=== PATIENT | male | born 1945 | race Caucasian/White ===

== ENCOUNTER → 2017-03-23 | Outpatient (CLI) | payer BC, OTHER ==
[~2017-03-23] MED LIST: NS 100 ML IV 100 ML IV ONE
[2017-03-23 08:35] LABS: CREATININE 1.3 mg/dL (0.70-1.30)
--- NOTE | 2017-03-23 09:52 | CT ---
HISTORY: 4 cm lung mass right mid lung zone per chest x-ray. Study: CT chest with contrast Comparison: Report only from chest x-ray dated March 17, 2017. Technique: Multiple axial images of the chest were obtained from the thoracic inlet to the upper abd omen after the administration of IV contrast. Dose reduction techniques including Automated Exposur e Control (AEC) and adjustment of mA and kV were utilized. Findings: The mediastinum does not demonstrate significant pathological lymphadenopathy. There is no paracard ial effusion observed. The thoracic aorta is normal in its contour without evidence for aneurysmal dilatation. The central pulmonary arterial system does not demonstrate central filling defects to s uggest pulmonary emboli. Biapical scarring and paraseptal emphysematous changes. Mild/moderate centrilobular emphysematous ch anges are seen throughout the lungs. There is a 6.3 x 4.5 cm spiculated right middle lobe mass that extends to the right hilum. No obvious satellite lesions. Calcified right lower lobe pulmonary nodul es consistent with old granulomatous disease. Multiple left pulmonary nodules, the largest seen salma g along the left major fissure (series 5, image 42) measuring 6 mm in greatest dimension. No pleural effusion, pneumothorax, or focal consolidation. Nonspecific posterior left lung pleural thickening. The left kidney is small. Otherwise, the visualized portions of the upper abdomen are grossly unrem arkable. Remote compression fracture of the T2 vertebral body. There is a soft tissue mass causing b simona destruction of the right portion of the vertebral body and posterior elements at T6. There is al so a suggestion of a soft tissue mass with bony destruction of the T11 vertebral body. Remaining oss eous structures appear intact. IMPRESSION: 1. 6.3 cm right middle lobe spiculated lung mass as above. No obvious associated satellite lesions or pathologic lymphadenopathy. However, multiple suspicious bone lesions as above concerning for met astatic disease. Recommend soft tissue sampling, PET-CT, and Pulmonary consultation. 2. Other chronic findings as above. Reported By:
== END ==
LOC: RAD 08:04
PROVIDERS: ATTEND Internal Medicine
DX: R63.4 Abnormal weight loss (principal); J44.9 Chronic obstructive pulmonary disease, unspecified; I50.22 Chronic systolic (congestive) heart failure; R91.8 Other nonspecific abnormal finding of lung field; R06.02 Shortness of breath
CPT/HCPCS: 36415; 71260; 82565; 84520; A4222

== ENCOUNTER 2017-04-27 13:49 | Inpatient (IN) | payer BC, OTHER ==
[2017-04-27] MEDS ORDERED: NS 1000 ML 1,000 ML IV ONE (14:04)
--- NOTE | 2017-04-27 14:06 | DR.GENAD ---
HPI - Nurses notes reviewed Nurses Notes Review: Yes PE - Vital Signs Vitals: Temperature 97.4 F Pulse Rate 105 Respiratory Rate 16 Blood Pressure 98/61 O2 Sat by Pulse Oximetry 94 ROR - Labs Reviewed Result Diagrams: 04/27/17 13:58 04/27/17 13:58 Laboratory: WBC 10.1 X10^3/uL (3.6-10.0) H 04/27/17 13:58 RBC 3.63 X10^6/uL (4.7-6.0) L 04/27/17 13:58 Hgb 11.2 g/dL (13.5-18.0) L 04/27/17 13:58 Hct 32.5 % (42.0-54.0) L 04/27/17 13:58 MCV 89.5 fL (80.0-100.0) 04/27/17 13:58 MCH 30.9 pg (27.0-34.0) 04/27/17 13:58 MCHC 34.5 g/dL (33.0-35.0) 04/27/17 13:58 RDW 13.8 % (11.6-16.5) 04/27/17 13:58 Plt Count 222 X10^3/uL (150.0-450.0) 04/27/17 13:58 MPV 10.1 fL (7.4-11.0) 04/27/17 13:58 Neut % 88.9 % (42.0-75.0) H 04/27/17 13:58 Lymph % 2.8 % (21.0-51.0) L 04/27/17 13:58 Snyder % 7.5 % (0.0-13.0) 04/27/17 13:58 Eos % 0.6 % (0.9-2.9) L 04/27/17 13:58 Baso % 0.2 % (0.2-1.0) 04/27/17 13:58 Neut # 9.0 x10^3/uL (2.2-4.8) H 04/27/17 13:58 Lymph # 0.3 X10^3/uL (1.3-2.9) L 04/27/17 13:58 Snyder # 0.8 x10^3/uL (0.3-0.8) 04/27/17 13:58 Eos # 0.1 x10^3/uL (0.0-0.2) 04/27/17 13:58 Baso # 0.0 X10^3/uL (0.0-0.1) 04/27/17 13:58 Absolute Nucleated RBC 0.0 /100WBC 04/27/17 13:58 Sodium 130 mmol/L (136-145) L 04/27/17 13:58 Corrected Sodium 130 mmol/L (136-145) L 04/27/17 13:58 Potassium 4.6 mmol/L (3.5-5.1) 04/27/17 13:58 Chloride 95 mmol/L (98-107) L 04/27/17 13:58 Carbon Dioxide 32.7 mmol/L (21-32) H 04/27/17 13:58 BUN 37 mg/dL (7-18) H 04/27/17 13:58 Creatinine 1.37 mg/dL (0.70-1.30) H 04/27/17 13:58 Est GFR (MDRD) Af Amer > 60 (>60) 04/27/17 13:58 Est GFR (MDRD) Non-Af 54 (>60) L 04/27/17 13:58 Glucose 111 mg/dL (65-99) H 04/27/17 13:58 Calcium 9.8 mg/dL (8.5-10.1) 04/27/17 13:58 Corrected Calcium 11.4 mg/dL (8.5-10.1) H 04/27/17 13:58 Total Bilirubin 0.30 mg/dL (0.2-1.0) 04/27/17 13:58 AST 32 Units/L (15-37) 04/27/17 13:58 ALT 27 Units/L (12-78) 04/27/17 13:58 Alkaline Phosphatase 142 Units/L (46-116) H 04/27/17 13:58 Creatine Kinase 30 Units/L (39-308) L 04/27/17 13:58 CK-MB (CK-2) < 1.0 ng/mL (0-4.0) 04/27/17 13:58 CK/CKMB % Calc 3.3 % (<4) 04/27/17 13:58 Troponin I < 0.02 ng/mL (0-1.5) 04/27/17 13:58 B-Natriuretic Peptide 102 pg/mL (0-79) H 04/27/17 13:58 Total Protein 8.0 g/dL (6.4-8.2) 04/27/17 13:58 Albumin 2.0 g/dL (3.4-5.0) L 04/27/17 13:58 Globulin 6.0 g/dL (2.5-4.5) H 04/27/17 13:58 Albumin/Globulin Ratio 0.3 Ratio (1.1-2.1) L 04/27/17 13:58 - Discharge Plan Condition: Stable - Follow ups/Referrals Follow ups/Referrals: Wayne Blackman [Primary Care Provider] - 3 days - Instructions
[2017-04-27] MEDS ORDERED: NS 1000 ML 1,000 ML ONE (14:08)
[2017-04-27 14:15] LABS: BASOPHILS % (AUTO) 0.2 % (0.2-1.0); EOSINOPHILS # (AUTO) 0.1 x10^3/uL (0.0-0.2); EOSINOPHILS % (AUTO) 0.6 % (0.9-2.9); HEMATOCRIT 32.5 % (42.0-54.0); HEMOGLOBIN 11.2 g/dL (13.5-18.0); LYMPHOCYTES # (AUTO) 0.3 X10^3/uL (1.3-2.9); LYMPHOCYTES % (AUTO) 2.8 % (21.0-51.0); MEAN CORPUSCULAR HEMOGLOBIN 30.9 pg (27.0-34.0); MEAN CORPUSCULAR HGB CONC 34.5 g/dL (33.0-35.0); MEAN CORPUSCULAR VOLUME 89.5 fL (80.0-100.0); MEAN PLATELET VOLUME 10.1 fL (7.4-11.0); MONOCYTES # (AUTO) 0.8 x10^3/uL (0.3-0.8); MONOCYTES % (AUTO) 7.5 % (0.0-13.0); NEUTROPHILS % (AUTO) 88.9 % (42.0-75.0); PLATELET COUNT 222 X10^3/uL (150.0-450.0); RED BLOOD COUNT 3.63 X10^6/uL (4.7-6.0); RED CELL DISTRIBUTION WIDTH 13.8 % (11.6-16.5); WHITE BLOOD COUNT 10.1 X10^3/uL (3.6-10.0)
[2017-04-27] MEDS: NS 1000 ML 1,000 ML IV SCH (14:15)
--- NOTE | 2017-04-27 14:21 | RAD ---
HISTORY: Chest pain. Lung mass. Study: Single view of the chest. Comparison: None. Findings: Right midlung opacity is unchanged from prior. Diffuse septal thickening is present. No focal consol idations, pleural effusions or pneumothorax. Osseous structures demonstrate no acute abnormality. IMPRESSION: 1. No significant change in appearance of right lung mass and diffuse fibrotic disease of the lungs . Reported By:
[2017-04-27 14:35] LABS: BLOOD UREA NITROGEN 37 mg/dL (7-18); CALCIUM 9.8 mg/dL (8.5-10.1); CARBON DIOXIDE 32.7 mmol/L (21-32); CHLORIDE 95 mmol/L (98-107); COR NA(FOR HYPERGLY) 130 mmol/L (136-145); CREATININE 1.37 mg/dL (0.70-1.30); GLUCOSE 111 mg/dL (65-99); SODIUM 130 mmol/L (136-145); TROPONIN I < 0.02 ng/mL (0-1.5); eGFR BLACK RACES > 60 (>60); eGFR NON BLACK RACES 54 (>60)
[2017-04-27 14:39] LABS: ALANINE AMINOTRANSFERASE 27 Units/L (12-78); ALKALINE PHOSPHATASE 142 Units/L (46-116); ASPARTATE AMINO TRANSFERASE 32 Units/L (15-37); CKMB % 3.3 % (<4); COR CA(FOR HYPOALB) 11.4 mg/dL (8.5-10.1); CREATINE KINASE 30 Units/L (39-308); CREATINE KINASE MB < 1.0 ng/mL (0-4.0)
[2017-04-27 14:47] LABS: B-TYPE NATRIURETIC PEPTIDE 102 pg/mL (0-79)
[2017-04-27] MEDS ORDERED: MVI INJ (ADULT) IV SCH (15:00)
[2017-04-27] MEDS: CLEOCIN 300 MG IV PREMIX 300 MG/50 ML BAG IV SCH ×2 (15:43→21:31)
[2017-04-27] MEDS ORDERED: SOLU-Medrol 125 MG VIAL IVP ONE (15:45)
[2017-04-27] MEDS: FORTAZ or TAZICEF INJ 1 GM in NS 50 ML IV + SPIKE MINIBAG* 50 ML IV SCH ×2 (16:38→21:29)
[2017-04-27] MEDS: ROBITUSSIN DM PO SCH ×2 (17:43→20:16)
[2017-04-27] MEDS ORDERED: DUONEB 0.5 MG/3 MG NEB SCH (18:00)
[2017-04-27] MEDS: PERCOCET TAB 5/325 MG PO PRN ×2 (20:15→22:05)
[2017-04-27 20:38] LABS: CKMB % 4.6 % (<4); CREATINE KINASE 22 Units/L (39-308); CREATINE KINASE MB < 1.0 ng/mL (0-4.0); TROPONIN I < 0.02 ng/mL (0-1.5)
[2017-04-27] MEDS: SOLU-Medrol 125 MG VIAL IVP SCH (21:30)
[2017-04-27] MEDS: DUONEB 0.5 MG/3 MG NEB SCH (21:40)
[2017-04-28 02:49] LABS: BASOPHILS % (AUTO) 0 % (0.2-1.0); HEMATOCRIT 32.2 % (42.0-54.0); LYMPHOCYTES # (AUTO) 0.1 X10^3/uL (1.3-2.9); LYMPHOCYTES % (AUTO) 1.6 % (21.0-51.0); MEAN CORPUSCULAR HEMOGLOBIN 30.8 pg (27.0-34.0); MEAN CORPUSCULAR HGB CONC 34.1 g/dL (33.0-35.0); MEAN CORPUSCULAR VOLUME 90.2 fL (80.0-100.0); MEAN PLATELET VOLUME 9.8 fL (7.4-11.0); MONOCYTES # (AUTO) 0.1 x10^3/uL (0.3-0.8); MONOCYTES % (AUTO) 1.1 % (0.0-13.0); NEUTROPHILS % (AUTO) 97.3 % (42.0-75.0); PLATELET COUNT 226 X10^3/uL (150.0-450.0); RED BLOOD COUNT 3.57 X10^6/uL (4.7-6.0); RED CELL DISTRIBUTION WIDTH 14.1 % (11.6-16.5); WHITE BLOOD COUNT 7.2 X10^3/uL (3.6-10.0)
[2017-04-28 03:05] LABS: ALANINE AMINOTRANSFERASE 30 Units/L (12-78); ALBUMIN 1.9 g/dL (3.4-5.0); ALKALINE PHOSPHATASE 134 Units/L (46-116); ASPARTATE AMINO TRANSFERASE 27 Units/L (15-37); BLOOD UREA NITROGEN 27 mg/dL (7-18); CALCIUM 9.6 mg/dL (8.5-10.1); CHLORIDE 97 mmol/L (98-107); COR CA(FOR HYPOALB) 11.3 mg/dL (8.5-10.1); COR NA(FOR HYPERGLY) 137 mmol/L (136-145); CREATININE 1.14 mg/dL (0.70-1.30); GLUCOSE 149 mg/dL (65-99); SODIUM 136 mmol/L (136-145); TOTAL PROTEIN 7.8 g/dL (6.4-8.2); eGFR BLACK RACES > 60 (>60); eGFR NON BLACK RACES > 60 (>60)
[2017-04-28 03:07] LABS: BAND NEUTROPHILS % 2 % (0-10); CKMB % 5.9 % (<4); CREATINE KINASE 17 Units/L (39-308); CREATINE KINASE MB < 1.0 ng/mL (0-4.0); TROPONIN I < 0.02 ng/mL (0-1.5)
[2017-04-28 03:08] LABS: PLATELET MORPHOLOGY COMMENT NORMAL (NORMAL)
[2017-04-28] MEDS: FORTAZ or TAZICEF INJ 1 GM in NS 50 ML IV + SPIKE MINIBAG* 50 ML IV SCH ×3 (05:27→21:52)
[2017-04-28] MEDS: SOLU-Medrol 125 MG VIAL IVP SCH ×3 (05:27→21:49)
[2017-04-28] MEDS: CLEOCIN 300 MG IV PREMIX 300 MG/50 ML BAG IV SCH (05:29)
[2017-04-28] MEDS: PERCOCET TAB 5/325 MG PO PRN ×2 (05:34→20:09)
[2017-04-28] MEDS: ALBUMIN HUMAN 25%- 100ML 100 ML IV SCH (09:01)
[2017-04-28] MEDS: ROBITUSSIN DM PO SCH ×4 (09:03→21:10)
[2017-04-28] MEDS: DUONEB 0.5 MG/3 MG NEB SCH ×4 (09:27→20:42)
[2017-04-28] MEDS ORDERED: CONSULT PHARMACY - ANTIBIOTIC XX SCH (10:00)
[2017-04-28] MEDS ORDERED: PHARMACY CONSULT - TPN XX SCH (10:00)
[2017-04-28] MEDS ORDERED: PATIENT'S HOME MEDICATION (Multivit-Min/Fa/Lycopen/Lutein [Centrum Silver Tablet] 1 TAB) PO SCH (10:00)
[2017-04-28] MEDS: COUMADIN TAB 5 MG PO SCH (10:49)
[2017-04-28] MEDS: XANAX PO SCH ×2 (10:50→21:10)
[2017-04-28] MEDS: PERIACTIN TAB 4 MG PO SCH ×3 (10:50→21:10)
[2017-04-28] MEDS: LASIX PO SCH ×2 (10:51→21:09)
[2017-04-28] MEDS: ALDACTONE TAB 25 MG PO SCH ×2 (10:51→21:09)
[2017-04-28] MEDS: LEVAQUIN PREMIX IV 750 MG 750 MG/150 ML BAG IV SCH (10:52)
[2017-04-28] MEDS: UBIDECARENONE 200 MG PO SCH ×2 (10:53→18:21)
[2017-04-28] MEDS: RAMIPRIL 1.25 MG PO SCH ×2 (10:54→18:22)
[2017-04-28] MEDS: VITS A C E PO SCH ×2 (10:55→18:21)
[2017-04-28] MEDS: MINERALS PO SCH ×2 (10:55→18:21)
[2017-04-28] MEDS: LUTEIN PO SCH ×2 (10:55→18:21)
--- NOTE | 2017-04-28 11:40 | DR.H&P ---
H&P - History & Physical for Day of: H&P Date: 04/27/17 - Chief Complaint Chief Complaint: SHORT OF BREATH, COUGH, BACK PAIN, WEAKNESS, DECREASED APPETITE. - Allergies Allergies/Adverse Reactions: Allergies Allergy/AdvReac Type Severity Reaction Status Date / Time No Known Drug Allergies Allergy Verified 04/27/17 14:15 - History of Present Illness History of Present Illness: IS A 71 YEAR OLD PATIENT OF OURS WHO PRESENTED TO THE ER WITH COMPLAINTS OF SHORTNESS OF BREATH, COUGHING UP YELLOW SPUTUM, BACK PAIN, WEAKNESS, AND DECREASED APPETITE. PATIENT STATED THAT HE WAS DIAGNOSED WITH CANCER ABOUT A MONTH AGO. HE REPORTS THAT HE HAS A MASS IN HIS LUNGS AND TUMORS IN HIS BACK AT T6-T11. HE HAS A HISTORY OF CONGESTIVE HEART FAILURE AND COPD. [facility] DEMOLISHED 2001 WITH . ON ARRIVAL TO ER, VITALS WERE 97.4-16-105-94%-98/61. CBC WNL EXCEPT WBC 10.1, RBC 3.63, HGB 11.2, HCT 32.5. CMP WNL EXCEPT SODIUM 130, GHLORIDE 95, CARBON DIOXIDE 32.7, BUN 37, CREATININE 1.37, GLUCOSE 111, CALCIUM 11.4, ALKALINE PHOSPHATASE 142, CRATINE KINASE 30, BNP 102, ALBUMIN 2.0. INR 1.66. CHEST XRAY REPORTED DIFFUSE FIBROTIC DISEASE OF THE LUNGS. HE WAS GIVEN SOLUMEDROL 125MG, CLEOCIN 300MG , AND DUONEBS IN THE ER. WE ADMITTED PATIENT FOR FURTHER TREATMENT AND EVALUATION. WE STARTED HIM ON NS @ KVO, CLEOCIN 300MG Q8H, FORTAZ 1GM Q8H, ROBITUSSION 10ML QID, AND MVI TO EACH BAG OF IV FLUIDS. WE PLANNED TO RECHECK LABS AND XRAY AND FOLLOW UP WITH PATIENT IN AM. - Past Medical History Past Medical History: CHF, COPD, Coronary Artery Disease Additional Medical History: LUNG CANCER - Past Surgical History Surgical History: Appendectomy, Ortho Surgery, TURP Additional Surgical History: PACEMAKER, DEFIBRILLATOR - Family History Family Medical History: [place], Coronary Artery Disease - Social History Does patient currently use any type of tobacco product: Yes Have you used tobacco products in the last 12 months: Yes Type of Tobacco Use: Cigarettes How many years tobacco product used: 50 Does any household member use tobacco: No Alcohol Use: Occasionally Drug Use: None - Medications Home Medications: Alprazolam [Xanax] 0.5 mg PO BID 04/27/17 [History Confirmed 04/27/17] Carvedilol [Coreg Tab 6.25 mg] 6.25 mg PO BID 04/27/17 [History Confirmed ] Cyproheptadine HCl 4 mg PO TID 04/27/17 [History Confirmed 04/27/17] Digoxin [Lanoxin] 125 mcg PO DAILY 04/27/17 [History Confirmed 04/27/17] Furosemide [Lasix] 40 mg PO BID 04/27/17 [History Confirmed 04/27/17] Multivit-Min/FA/Lycopen/Lutein [Centrum Silver Adult 50+] 1 tab PO DAILY [History Confirmed 04/27/17] Omeprazole 40 mg PO DAILY 04/27/17 [History Confirmed 04/27/17] Oxycodone HCl [Roxicodone Tab 15 mg] 0.5 tab PO Q6H PRN 04/27/17 [History Confirmed 04/27/17] Oxycodone HCl/Acetaminophen [Oxycodone/Acetaminophen 5-325 mg] 1 tab PO Q4H PRN 04/27/17 [History Confirmed 04/27/17] Potassium Chloride [Potassium Chloride ER] 20 meq PO BID 04/27/17 [History Confirmed 04/27/17] Pravastatin Sodium 10 mg PO HS 04/27/17 [History Confirmed 04/27/17] Ramipril [Altace 1.25 mg] 1.25 mg PO DAILY 04/27/17 [History Confirmed 04/27/17] Spironolactone [Aldactone Tab 25 mg] 25 mg PO BID 04/27/17 [History Confirmed ] Ubidecarenone [Coenzyme Q-10] 200 mg PO DAILY 04/27/17 [History Confirmed ] Vits A,C,E/Lutein/Minerals [Ocuvite tab (orig)] 1 tab PO DAILY 04/27/17 [ History Confirmed 04/27/17] Warfarin Sodium [Coumadin Tab 5 mg] 5 mg PO DAILY 04/27/17 [History Confirmed ] - Review of Systems Constitutional: Weakness. denies: No Symptoms Reported, See HPI, Fever, Chills , Sweats, Malaise, Other Eyes: No Symptoms Reported. denies: See HPI, Pain, Vision Change, Conjunctivae Inflammation, Eyelid Inflammation, Redness, Other ENT: No Symptoms Reported. denies: See HPI, Ear Pain, Ear Discharge, Nose Pain , Nose Discharge, Nose Congestion, Mouth Pain, Mouth Swelling, Throat Pain, Throat Swelling, Other Respiratory: See HPI, Cough, Shortness of Breath, Sputum, Wheezing Cardiovascular: No Symptoms Reported. denies: Chest Pain, See HPI, Palpitations , Orthopnea, Paroxysmal Noc. Dyspnea, Edema, Light Headedness, Other Gastrointestinal: No Symptoms Reported. denies: See HPI, Nausea, Vomiting, Abdominal Pain, Diarrhea, Constipation, Melena, Hematochezia, Other Genitourinary: No Symptoms Reported. denies: See HPI, Dysuria, Frequency, Incontinence, Hematuria, Retention, Other Musculoskeletal: See HPI, Back Pain. denies: No Symptoms Reported, Shoulder Pain, Arm Pain, Hand Pain, Leg Pain, Foot Pain, Neck Pain, Other Skin: No Symptoms Reported. denies: See HPI, Rash, Lesions, Jaundice, Bruising , Wound, Ecchymosis, Other Neurological: Weakness. denies: No Symptoms Reported, See HPI, Numbness, Incoordination, Change in Speech, Confusion, Seizures, Other - Physical Exam Vital Signs: Temperature 98.4 F Pulse Rate [Right Radial] 78 Pulse Rate 100 Respiratory Rate 18 Blood Pressure [Left Arm] 104/62 O2 Sat by Pulse Oximetry 93 Oriented: Normal. negative: Time, Person, Place, Not Oriented, Unable to test, Other Eyes: Normal. negative: Blurred Vision, Diplopia, Discharge, Pain, Redness, Photophobia, Other Ear: Normal. negative: Right, Left, Swelling, Ecchymosis, Hemotypanum, Abrasion , Laceration Nose: Normal. negative: Injected, Discharge, Blood, Other Throat: Normal. negative: Tonsillar Hypertrophy, Red, Exudate, Dry, Other Respiratory: Wheezes Throughout. negative: Clear Throughout, Diminished Throughout, Rhonchi Throughout, Rales Throughout, RUL Clear, RML Clear, RLL Clear, BABATUNDE Clear, LML Clear, LLL Clear, RUL Diminished, RML Diminished, RLL Diminished, BABATUNDE Diminished, LML Diminished, LLL Diminished, RUL Absent, RML Absent, RLL Absent, BABATUNDE Absent, LML Absent, LLL Absent, RUL Rhonchi, RML Rhonchi , RLL Rhonchi, BABATUNDE Rhonchi, LML Rhonchi, LLL Rhonchi, RUL Insp. Wheeze, RML Insp. Wheeze, RLL Insp. Wheeze, BABATUNDE Insp.Wheeze, LML Insp.Wheeze, LLL Insp.Wheeze, RUL Exp. Wheeze, RML Exp. Wheeze, RLL Exp. Wheeze, BABATUNDE Exp. Wheeze , LML Exp. Wheeze, LLL Exp. Wheeze, RUL Rales, RML Rales, RLL Rales, BABATUNDE Rales, LML Rales, LLL Rales, RUL Rub, RML Rub, RLL Rub, BABATUNDE Rub, LML Rub, LLL Rub, RUL Squeak, RML Squeak, RLL Squeak, BABATUNDE Squeak, LML Squeak, LLL Squeak Cardiovascular: Normal. negative: Tachycardia, Bradycardia, Irregular, S3, S4, Systolic, Diastolic, Murmur, Edema, Other : Normal. negative: Dysuria, Hematuria, Frequency, Discharge, Testicular Pain , Bleeding, , Other Auscultation: Bowel Sounds: Normal. negative: Bruit, Absent, Increased, Decreased, High Pitched, Other Palpation: Normal. negative: Spleen Enlarged, Liver Enlarged, Mass Pulsatile, Other Tenderness: Normal. negative: Diffuse, RUQ, RLQ, LUQ, LLQ, Epigastric, Periumbilical, Suprapubic, Mild, Moderate, Severe, Rebound, Guarding, Rigidity, Other Skin: Decreased Turgur. negative: Normal, Rash, Papular, Macular, Maculopapular , Vesicular, Pustular, Petechial, Red, Tender, Hot, Diaphoresis, Wound, Bruising , Ecchymosis, Other Musculoskeletal: Normal. negative: Right, Left, Shoulder, Clavicle, Arm, Elbow , Forearm, Wrist, Hand, Hip, Thigh, Knee, Leg, Ankle, Foot, Back:Thoracic, Back: Lumbar, Back:Midline, Back:Paraspinous, Pelvis, Swelling, Tender, Deformity, Pulse Deficit, Motor Deficit, Sensory Deficit, Instability, Crepitance Psychiatric: Normal. negative: Anxiety, Depression, Agitation, Other Mood Description: Calm. negative: Angry, Apathetic, Depressed, Fearful, Flat, Happy, Hostile, Sad, Suspicious, Withdrawn, Anxious, Appropriate, Labile Affect: Normal. negative: Angry, Anxious, Depressed, Flat, Hysterical, Quiet, Violent Speech Pattern: Clear. negative: Appropriate, Unclear, Inappropriate, Delayed, Slurred, Excessive, Aphasic, Artificially Ventilated - Assessment/Plan (1) Bronchitis Status: Acute Plan: FORTAZ 1 GM IV Q8H, CLEOCIN IV, DUONEBS QID PRN, CONTINUE TO MONITOR (2) Respiratory distress, acute Status: Acute Plan: SOLUMEDROL 80MG IV Q8H, DUONEBS QID PRN, CONTINUE TO MONITOR (3) Dehydration Status: Acute Plan: NORMAL SALINE, TPN, CONTINUE TO MONITOR (4) Back pain, thoracic Qualifiers: Chronicity: acute Back pain laterality: midline Qualified Code(s): M54.6 - Pain in thoracic spine Status: Acute Plan: CONTINUE PERCOCET Q4H PRN PAIN, CONTINUE TO MONITOR
[2017-04-28] MEDS ORDERED: PROCALAMINE 3 % 1,000 ML IV SCH (12:00)
--- NOTE | 2017-04-28 12:04 | RAD ---
HISTORY: Shortness of breath Study: Single view of the chest. Comparison: X-ray 04/27/2017, chest CT 03/23/2017 Findings: The cardiomediastinal silhouette is normal. No significant change in appearance of opacity involving the right middle lobe. Diffuse interstitial prominence and thickening. Osseous structures demonstra te no acute abnormality. IMPRESSION: 1. Redemonstration of what is likely a right middle lobe lung mass with diffuse interstitial thicke sunita likely representing fibrosis. Reported By:
[2017-04-28] MEDS: PROCALAMINE 3 % 1,000 ML IV SCH (15:13)
[2017-04-28 18:59] VITALS: BMI 13.8
--- NOTE | 2017-04-28 19:17 | PCM.PROG ---
Progress Note - Progress Note for Day of Date: 04/28/17 - Subjective Subjective: WAS ADMITTED TO US YESTERDAY FROM THE ER WITH RESPIRATORY DISTRESS, BRONCHITIS, AND DEHYDRATION. HE IS ALERT AND ORIENTED ON MORNING ROUNDS. FAMILY IS AT BEDSIDE HE IS NOTED WITH COMPLAINTS OF SHORTNESS OF BREATH , PRODUCTIVE COUGH, WEAKNESS, AND MODERATED BACK PAIN. LUNGS ARE NOTED WITH WHEEZING BILATERALLY ON AUSCULTATION. FAMILY STATES THAT THEY ARE AWAITING RESULTS FROM TISSUE BIOPSY THAT WAS DONE IN [place] RECENTLY. WE WILL CONTACT [facility] AND SEE IF WE CAN OBTAIN THESE RESULTS. VITALS THIS AM ARE 98.4-78-18-97%-104/62. CBC REPORTS WBC 7.2, RBC 3.57, HGB 11.0, HCT 32.2. CMP REPORTS SODIUM 136, POTASSIUM 5.7, BUN 27, CREATININE 1.14, ALKALINE PHOSPHATASE 134, TOTAL PROTEIN 7.8, ALBUMIN 1.9. INR 1.48. CREATININE KINASE 30 , 22, 17. BNP 102. CHEST XRAY REPORTS REDEMONSTRATION OF WHAT IS LIKELY A RIGHT MIDDLE LOBE LUNG MASS WITH DIFFUSE INTERSTITUAL THICKENING LIKELY REPRESENTING FIBROSIS. PATIENTS FAMILY EXPRESSES CONCERNS THAT PAIN MEDICATION IS NOT MANAGING PATIENTS PAIN EFFECTIVELY. WE WILL START A DURAGESIC PATCH 25MCG TO BE CHANGED EVERY THREE DAYS. WE WILL START ALBUMIN 1 BOTTLE DAILY, START TPN, AND LEVAQUIN IV DAILY, PHARMACY TO ADJUST RATE. WE WILL CHECK DIGOXIN AND INR LEVELS DAILY. WE WILL RECHECK CBC, CMP, AND CHEST XRAY AND FOLLOW UP WITH PATIENT IN AM. - Past Medical Family Social History Past Med/Fam/Surg Hx: No changes since H&P Allergies: Allergies No Known Drug Allergies Allergy (Verified 04/27/17 14:15) - Review of Systems ROS: No change since H&P - Vital Signs and I&O's Vital Signs: Temperature 97.2 F Pulse Rate [Right Radial] 96 Pulse Rate 100 Respiratory Rate 17 Blood Pressure [Right Arm] 114/59 Blood Pressure [Left Arm] 104/62 O2 Sat by Pulse Oximetry 96 Intake and Output: Intake & Output 04/26/17 04/27/17 04/28/17 04/29/17 11:59 11:59 11:59 11:59 Intake Total 907 540 Output Total 550 Balance 907 -10 - Physical Exam Oriented: Normal. negative: Time, Person, Place, Not Oriented, Unable to test, Other Eyes: Normal. negative: Blurred Vision, Diplopia, Discharge, Pain, Redness, Photophobia, Other Ear: Normal. negative: Right, Left, Swelling, Ecchymosis, Hemotypanum, Abrasion , Laceration Nose: Normal. negative: Injected, Discharge, Blood, Other Throat: Normal. negative: Tonsillar Hypertrophy, Red, Exudate, Dry, Other Respiratory: Right, Left, Wheezes Cardiovascular: Normal. negative: Tachycardia, Bradycardia, Irregular, S3, S4, Systolic, Diastolic, Murmur, Edema, Other : Normal. negative: Dysuria, Hematuria, Frequency, Discharge, Testicular Pain , Bleeding, , Other Auscultation: Bowel Sounds: Normal. negative: Bruit, Absent, Increased, Decreased, High Pitched, Other Palpation: Normal Tenderness: Normal. negative: Diffuse, RUQ, RLQ, LUQ, LLQ, Epigastric, Periumbilical, Suprapubic, Mild, Moderate, Severe, Rebound, Guarding, Rigidity, Other Skin: Decreased Turgur. negative: Normal, Rash, Papular, Macular, Maculopapular , Vesicular, Pustular, Petechial, Red, Tender, Hot, Diaphoresis, Wound, Bruising , Ecchymosis, Other Musculoskeletal: Normal. negative: Right, Left, Shoulder, Clavicle, Arm, Elbow , Forearm, Wrist, Hand, Hip, Thigh, Knee, Leg, Ankle, Foot, Back:Thoracic, Back: Lumbar, Back:Midline, Back:Paraspinous, Pelvis, Swelling, Tender, Deformity, Pulse Deficit, Motor Deficit, Sensory Deficit, Instability, Crepitance Psychiatric: Normal. negative: Anxiety, Depression, Agitation, Other Mood Description: Calm. negative: Angry, Apathetic, Depressed, Fearful, Flat, Happy, Hostile, Sad, Suspicious, Withdrawn, Anxious, Appropriate, Labile Affect: Normal. negative: Angry, Anxious, Depressed, Flat, Hysterical, Quiet, Violent Speech Pattern: Clear. negative: Appropriate, Unclear, Inappropriate, Delayed, Slurred, Excessive, Aphasic, Artificially Ventilated - Laboratory and Diagnostics Result Diagrams: 04/28/17 02:20 04/28/17 02:20 Labs: 04/27/17 15:08 Sputum - Expectorated Sputum Sputum Culture - Preliminary 04/27/17 15:08 Sputum - Expectorated Sputum - Final Laboratory WBC 7.2 X10^3/uL (3.6-10.0) 04/28/17 02:20 RBC 3.57 X10^6/uL (4.7-6.0) L 04/28/17 02:20 Hgb 11.0 g/dL (13.5-18.0) L 04/28/17 02:20 Hct 32.2 % (42.0-54.0) L 04/28/17 02:20 MCV 90.2 fL (80.0-100.0) 04/28/17 02:20 MCH 30.8 pg (27.0-34.0) 04/28/17 02:20 MCHC 34.1 g/dL (33.0-35.0) 04/28/17 02:20 RDW 14.1 % (11.6-16.5) 04/28/17 02:20 Plt Count 226 X10^3/uL (150.0-450.0) 04/28/17 02:20 Plt Count Comment Adequate (ADEQUATE) 04/28/17 02:20 MPV 9.8 fL (7.4-11.0) 04/28/17 02:20 Neut % 97.3 % (42.0-75.0) H 04/28/17 02:20 Lymph % 1.6 % (21.0-51.0) L 04/28/17 02:20 Nolan % 1.1 % (0.0-13.0) 04/28/17 02:20 Eos % 0.0 % (0.9-2.9) L 04/28/17 02:20 Baso % 0 % (0.2-1.0) L 04/28/17 02:20 Neut # 7.0 x10^3/uL (2.2-4.8) H 04/28/17 02:20 Lymph # 0.1 X10^3/uL (1.3-2.9) L 04/28/17 02:20 Nolan # 0.1 x10^3/uL (0.3-0.8) L 04/28/17 02:20 Eos # 0.0 x10^3/uL (0.0-0.2) 04/28/17 02:20 Baso # 0.0 X10^3/uL (0.0-0.1) 04/28/17 02:20 Absolute Nucleated RBC 0.1 /100WBC 04/28/17 02:20 Total Counted 100 04/28/17 02:20 Neutrophils % (Manual) 96 % (39-76) H 04/28/17 02:20 Band Neutrophils % 2 % (0-10) 04/28/17 02:20 Lymphocytes % (Manual) 2 % (13-43) L 04/28/17 02:20 Plt Morphology Comment Normal (NORMAL) 04/28/17 02:20 RBC Morphology Normal (NORMAL) 04/28/17 02:20 INR Target Range - 04/28/17 02:20 INR 1.48 (0.8-1.3) H 04/28/17 02:20 Sodium 136 mmol/L (136-145) 04/28/17 02:20 Corrected Sodium 137 mmol/L (136-145) 04/28/17 02:20 Potassium 5.7 mmol/L (3.5-5.1) H 04/28/17 02:20 Chloride 97 mmol/L (98-107) L 04/28/17 02:20 Carbon Dioxide 32.0 mmol/L (21-32) 04/28/17 02:20 BUN 27 mg/dL (7-18) H 04/28/17 02:20 Creatinine 1.14 mg/dL (0.70-1.30) 04/28/17 02:20 Est GFR (MDRD) Af Amer > 60 (>60) 04/28/17 02:20 Est GFR (MDRD) Non-Af > 60 (>60) 04/28/17 02:20 Glucose 149 mg/dL (65-99) H 04/28/17 02:20 Calcium 9.6 mg/dL (8.5-10.1) 04/28/17 02:20 Corrected Calcium 11.3 mg/dL (8.5-10.1) H 04/28/17 02:20 Total Bilirubin 0.30 mg/dL (0.2-1.0) 04/28/17 02:20 AST 27 Units/L (15-37) 04/28/17 02:20 ALT 30 Units/L (12-78) 04/28/17 02:20 Alkaline Phosphatase 134 Units/L (46-116) H 04/28/17 02:20 Creatine Kinase 17 Units/L (39-308) L 04/28/17 02:20 CK-MB (CK-2) < 1.0 ng/mL (0-4.0) 04/28/17 02:20 CK/CKMB % Calc 5.9 % (<4) 04/28/17 02:20 Troponin I < 0.02 ng/mL (0-1.5) 04/28/17 02:20 B-Natriuretic Peptide 102 pg/mL (0-79) H 04/27/17 13:58 Total Protein 7.8 g/dL (6.4-8.2) 04/28/17 02:20 Albumin 1.9 g/dL (3.4-5.0) L 04/28/17 02:20 Globulin 5.9 g/dL (2.5-4.5) H 04/28/17 02:20 Albumin/Globulin Ratio 0.3 Ratio (1.1-2.1) L 04/28/17 02:20 Digoxin 1.47 ng/mL (0.9-2) 04/28/17 02:20 - Plan (1) Bronchitis Status: Acute Plan: FORTAZ 1 GM IV Q8H, DISCONTINUE CLEOCIN IV, START LEVAQUIN IV DUONEBS QID PRN, CONTINUE TO MONITOR (2) Respiratory distress, acute Status: Acute Plan: SOLUMEDROL 80MG IV Q8H, DUONEBS QID PRN, CONTINUE TO MONITOR (3) Dehydration Status: Acute Plan: NORMAL SALINE, TPN, CONTINUE TO MONITOR (4) Back pain, thoracic Status: Acute Qualifiers: Chronicity: acute Back pain laterality: midline Qualified Code(s): M54.6 - Pain in thoracic spine Plan: CONTINUE PERCOCET Q4H PRN PAIN, CONTINUE TO MONITOR (5) Hypoalbuminemia Status: Acute Plan: ALBUMIN 1 BOTTLE DAILY, TPN, CONTINUE TO MONITOR
[2017-04-28] MEDS: PATIENT'S HOME MEDICATION (Pravastatin Sodium [Pravastatin Sodium] 10 MG) PO SCH (21:23)
[2017-04-28] MEDS: NS 1000 ML 1,000 ML IV SCH (21:56)
[2017-04-29 05:07] LABS: BASOPHILS % (AUTO) 0.1 % (0.2-1.0); HEMATOCRIT 28.6 % (42.0-54.0); HEMOGLOBIN 9.6 g/dL (13.5-18.0); LYMPHOCYTES # (AUTO) 0.1 X10^3/uL (1.3-2.9); MEAN CORPUSCULAR HEMOGLOBIN 30.3 pg (27.0-34.0); MEAN CORPUSCULAR HGB CONC 33.5 g/dL (33.0-35.0); MEAN CORPUSCULAR VOLUME 90.4 fL (80.0-100.0); MEAN PLATELET VOLUME 9.8 fL (7.4-11.0); MONOCYTES # (AUTO) 0.3 x10^3/uL (0.3-0.8); MONOCYTES % (AUTO) 2.1 % (0.0-13.0); NEUTROPHILS # (AUTO) 12.7 x10^3/uL (2.2-4.8); NEUTROPHILS % (AUTO) 96.8 % (42.0-75.0); PLATELET COUNT 239 X10^3/uL (150.0-450.0); RED BLOOD COUNT 3.16 X10^6/uL (4.7-6.0); RED CELL DISTRIBUTION WIDTH 13.5 % (11.6-16.5); WHITE BLOOD COUNT 13.2 X10^3/uL (3.6-10.0)
[2017-04-29 05:16] LABS: ALANINE AMINOTRANSFERASE 28 Units/L (12-78); ALBUMIN 2.1 g/dL (3.4-5.0); ALKALINE PHOSPHATASE 111 Units/L (46-116); ASPARTATE AMINO TRANSFERASE 23 Units/L (15-37); BLOOD UREA NITROGEN 28 mg/dL (7-18); CARBON DIOXIDE 30.3 mmol/L (21-32); CHLORIDE 97 mmol/L (98-107); COR CA(FOR HYPOALB) 10.5 mg/dL (8.5-10.1); COR NA(FOR HYPERGLY) 137 mmol/L (136-145); CREATININE 1.05 mg/dL (0.70-1.30); DIGOXIN 0.78 ng/mL (0.9-2); GLUCOSE 169 mg/dL (65-99); SODIUM 135 mmol/L (136-145); eGFR BLACK RACES > 60 (>60); eGFR NON BLACK RACES > 60 (>60)
[2017-04-29 05:41] LABS: PLATELET MORPHOLOGY COMMENT NORMAL (NORMAL)
[2017-04-29] MEDS: PERIACTIN TAB 4 MG PO SCH ×3 (06:06→21:43)
[2017-04-29] MEDS: FORTAZ or TAZICEF INJ 1 GM in NS 50 ML IV + SPIKE MINIBAG* 50 ML IV SCH ×3 (06:06→21:44)
[2017-04-29] MEDS: SOLU-Medrol 125 MG VIAL IVP SCH ×3 (06:06→21:49)
--- NOTE | 2017-04-29 06:49 | RAD ---
HISTORY: Shortness of breath Study: Chest one view Comparison: April 29, 2017, CT chest March 23, 2017 Findings: The patient is rotated to the left. There is a pacemaker present on the left obscuring a portion of the left mid lung. The heart is within normal limits in size. The chicho are normal. The aorta is calc ified. Abnormal parenchymal density is per in the right lung base likely representing the right lung mass/consolidation which is better visualized on the prior chest CT March 23, 2017. The appearance i s unchanged from the prior examination. The lungs are generally hyperinflated. Mild interstitial harrison g changes are present bilaterally. IMPRESSION: Persistent abnormal density in the area of the right middle lobe likely representing the patient's k nown right middle lobe mass/consolidation which was better demonstrated on the prior chest CT March 052016 Hyperinflation Interstitial lung changes Reported By:
[2017-04-29] MEDS: ALBUMIN HUMAN 25%- 100ML 100 ML IV SCH (09:20)
[2017-04-29] MEDS: LANOXIN PO SCH (09:23)
[2017-04-29] MEDS: ALDACTONE TAB 25 MG PO SCH ×2 (09:24→21:44)
[2017-04-29] MEDS: ROBITUSSIN DM PO SCH ×4 (09:24→21:44)
[2017-04-29] MEDS: XANAX PO SCH ×2 (09:24→21:43)
[2017-04-29] MEDS: TAB-A-VITE PO SCH (09:24)
[2017-04-29] MEDS: COUMADIN TAB 5 MG PO SCH (09:26)
[2017-04-29] MEDS: LASIX PO SCH ×2 (09:26→21:57)
[2017-04-29] MEDS: RAMIPRIL 1.25 MG PO SCH (09:30)
[2017-04-29] MEDS: UBIDECARENONE 200 MG PO SCH (09:31)
[2017-04-29] MEDS: LUTEIN PO SCH ×3 (09:33→21:46)
[2017-04-29] MEDS: VITS A C E PO SCH ×3 (09:33→21:46)
[2017-04-29] MEDS: MINERALS PO SCH ×3 (09:33→21:46)
[2017-04-29] MEDS: DUONEB 0.5 MG/3 MG NEB SCH ×4 (09:34→20:54)
--- NOTE | 2017-04-29 13:58 | PCM.PROG ---
Progress Note - Progress Note for Day of Date: 04/29/17 - Subjective Subjective: WAS ADMITTED TO US WITH RESPIRATORY DISTRESS, BRONCHITIS, AND DEHYDRATION. HE IS ALERT AND ORIENTED ON MORNING ROUNDS. FAMILY IS AT BEDSIDE. PATIENT CONTINUES WITH SHORTNESS OF BREATH, BUT REPORTS THAT HIS PAIN IS UNDER CONTROL AT THIS TIME. LUNGS ARE NOTED WITH WHEEZING BILATERALLY ON AUSCULTATION. VITALS THIS AM ARE 97.7-98.2-18-96%-111/70. CBC REPORTS WBC INCREASE FROM 7.2 TO 13.2, RBC 3.16, HGB 9.6, HCT 28.6. CMP REPORTS SODIUM 135, POTASSIUM 4.3, BUN 28, CREATININE 1.05, TOTAL PROTEIN 7.0, ALBUMIN 2.1. INR 1.49. CHEST XRAY REPORTS INTERSTITUAL LUNG CHANGES AND RIGHT MIDDLE LOBE MASS. PATIENT IS MALNOURISHED, EVIDENCED BY HIS ALBUMIN OF 2.1 AND DIETARY CONSULT. WE WILL CONTINUE ALBUMIN 1 BOTTLE DAILY, CONTINUE PROCALAMINE. WE WILL CHECK DIGOXIN AND INR LEVELS DAILY. WE WILL RECHECK CBC, CMP, AND CHEST XRAY AND FOLLOW UP WITH PATIENT IN AM. - Past Medical Family Social History Past Med/Fam/Surg Hx: No changes since H&P Allergies: Allergies No Known Drug Allergies Allergy (Verified 04/27/17 14:15) - Review of Systems ROS: No change since H&P - Vital Signs and I&O's Vital Signs: Temperature 97.7 F Pulse Rate [Right Radial] 92 Pulse Rate 92 Respiratory Rate 18 Blood Pressure [Right Arm] 111/70 Blood Pressure [Left Arm] 104/62 O2 Sat by Pulse Oximetry 100 Intake and Output: Intake & Output 04/27/17 04/28/17 04/29/17 04/30/17 11:59 11:59 11:59 11:59 Intake Total 907 1928 600 Output Total 1425 Balance 907 503 600 - Physical Exam Oriented: Normal. negative: Time, Person, Place, Not Oriented, Unable to test, Other Eyes: Normal. negative: Blurred Vision, Diplopia, Discharge, Pain, Redness, Photophobia, Other Ear: Normal. negative: Right, Left, Swelling, Ecchymosis, Hemotypanum, Abrasion , Laceration Nose: Normal. negative: Injected, Discharge, Blood, Other Throat: Normal. negative: Tonsillar Hypertrophy, Red, Exudate, Dry, Other Respiratory: Right, Left, Wheezes Cardiovascular: Normal. negative: Tachycardia, Bradycardia, Irregular, S3, S4, Systolic, Diastolic, Murmur, Edema, Other : Normal. negative: Dysuria, Hematuria, Frequency, Discharge, Testicular Pain , Bleeding, , Other Auscultation: Bowel Sounds: Normal. negative: Bruit, Absent, Increased, Decreased, High Pitched, Other Palpation: Normal Tenderness: Normal. negative: Diffuse, RUQ, RLQ, LUQ, LLQ, Epigastric, Periumbilical, Suprapubic, Mild, Moderate, Severe, Rebound, Guarding, Rigidity, Other Skin: Decreased Turgur. negative: Normal, Rash, Papular, Macular, Maculopapular , Vesicular, Pustular, Petechial, Red, Tender, Hot, Diaphoresis, Wound, Bruising , Ecchymosis, Other Musculoskeletal: Normal. negative: Right, Left, Shoulder, Clavicle, Arm, Elbow , Forearm, Wrist, Hand, Hip, Thigh, Knee, Leg, Ankle, Foot, Back:Thoracic, Back: Lumbar, Back:Midline, Back:Paraspinous, Pelvis, Swelling, Tender, Deformity, Pulse Deficit, Motor Deficit, Sensory Deficit, Instability, Crepitance Psychiatric: Normal. negative: Anxiety, Depression, Agitation, Other Mood Description: Calm. negative: Angry, Apathetic, Depressed, Fearful, Flat, Happy, Hostile, Sad, Suspicious, Withdrawn, Anxious, Appropriate, Labile Affect: Normal. negative: Angry, Anxious, Depressed, Flat, Hysterical, Quiet, Violent Speech Pattern: Clear, Appropriate - Laboratory and Diagnostics Result Diagrams: 04/29/17 03:35 04/29/17 03:35 Labs: 04/27/17 15:58 Blood Blood Culture - Preliminary 04/27/17 15:50 Blood Blood Culture - Preliminary 04/27/17 15:08 Sputum - Expectorated Sputum Sputum Culture - Final 04/27/17 15:08 Sputum - Expectorated Sputum - Final Laboratory WBC 13.2 X10^3/uL (3.6-10.0) H 04/29/17 03:35 RBC 3.16 X10^6/uL (4.7-6.0) L 04/29/17 03:35 Hgb 9.6 g/dL (13.5-18.0) L 04/29/17 03:35 Hct 28.6 % (42.0-54.0) L 04/29/17 03:35 MCV 90.4 fL (80.0-100.0) 04/29/17 03:35 MCH 30.3 pg (27.0-34.0) 04/29/17 03:35 MCHC 33.5 g/dL (33.0-35.0) 04/29/17 03:35 RDW 13.5 % (11.6-16.5) 04/29/17 03:35 Plt Count 239 X10^3/uL (150.0-450.0) 04/29/17 03:35 Plt Count Comment Adequate (ADEQUATE) 04/29/17 03:35 MPV 9.8 fL (7.4-11.0) 04/29/17 03:35 Neut % 96.8 % (42.0-75.0) H 04/29/17 03:35 Lymph % 1.0 % (21.0-51.0) L 04/29/17 03:35 Orange % 2.1 % (0.0-13.0) 04/29/17 03:35 Eos % 0.0 % (0.9-2.9) L 04/29/17 03:35 Baso % 0.1 % (0.2-1.0) L 04/29/17 03:35 Neut # 12.7 x10^3/uL (2.2-4.8) H 04/29/17 03:35 Lymph # 0.1 X10^3/uL (1.3-2.9) L 04/29/17 03:35 Orange # 0.3 x10^3/uL (0.3-0.8) 04/29/17 03:35 Eos # 0.0 x10^3/uL (0.0-0.2) 04/29/17 03:35 Baso # 0.0 X10^3/uL (0.0-0.1) 04/29/17 03:35 Absolute Nucleated RBC 0.0 /100WBC 04/29/17 03:35 Total Counted 100 04/29/17 03:35 Neutrophils % (Manual) 97 % (39-76) H 04/29/17 03:35 Band Neutrophils % 2 % (0-10) 04/28/17 02:20 Lymphocytes % (Manual) 3 % (13-43) L 04/29/17 03:35 Plt Morphology Comment Normal (NORMAL) 04/29/17 03:35 RBC Morphology Normal (NORMAL) 04/29/17 03:35 INR Target Range - 04/29/17 03:35 INR 1.49 (0.8-1.3) H 04/29/17 03:35 Sodium 135 mmol/L (136-145) L 04/29/17 03:35 Corrected Sodium 137 mmol/L (136-145) 04/29/17 03:35 Potassium 4.3 mmol/L (3.5-5.1) 04/29/17 03:35 Chloride 97 mmol/L (98-107) L 04/29/17 03:35 Carbon Dioxide 30.3 mmol/L (21-32) 04/29/17 03:35 BUN 28 mg/dL (7-18) H 04/29/17 03:35 Creatinine 1.05 mg/dL (0.70-1.30) 04/29/17 03:35 Est GFR (MDRD) Af Amer > 60 (>60) 04/29/17 03:35 Est GFR (MDRD) Non-Af > 60 (>60) 04/29/17 03:35 Glucose 169 mg/dL (65-99) H 04/29/17 03:35 Calcium 9.0 mg/dL (8.5-10.1) 04/29/17 03:35 Corrected Calcium 10.5 mg/dL (8.5-10.1) H 04/29/17 03:35 Total Bilirubin 0.10 mg/dL (0.2-1.0) L 04/29/17 03:35 AST 23 Units/L (15-37) 04/29/17 03:35 ALT 28 Units/L (12-78) 04/29/17 03:35 Alkaline Phosphatase 111 Units/L (46-116) 04/29/17 03:35 Creatine Kinase 17 Units/L (39-308) L 04/28/17 02:20 CK-MB (CK-2) < 1.0 ng/mL (0-4.0) 04/28/17 02:20 CK/CKMB % Calc 5.9 % (<4) 04/28/17 02:20 Troponin I < 0.02 ng/mL (0-1.5) 04/28/17 02:20 B-Natriuretic Peptide 102 pg/mL (0-79) H 04/27/17 13:58 Total Protein 7.0 g/dL (6.4-8.2) 04/29/17 03:35 Albumin 2.1 g/dL (3.4-5.0) L 04/29/17 03:35 Globulin 4.9 g/dL (2.5-4.5) H 04/29/17 03:35 Albumin/Globulin Ratio 0.4 Ratio (1.1-2.1) L 04/29/17 03:35 Digoxin 0.78 ng/mL (0.9-2) L 04/29/17 03:35 - Plan (1) Bronchitis Status: Acute Plan: FORTAZ 1 GM IV Q8H, DISCONTINUE CLEOCIN IV, START LEVAQUIN IV DUONEBS QID PRN, CONTINUE TO MONITOR (2) Respiratory distress, acute Status: Acute Plan: SOLUMEDROL 80MG IV Q8H, DUONEBS QID PRN, CONTINUE TO MONITOR (3) Dehydration Status: Acute Plan: NORMAL SALINE, TPN, CONTINUE TO MONITOR (4) Back pain, thoracic Status: Acute Qualifiers: Chronicity: acute Back pain laterality: midline Qualified Code(s): M54.6 - Pain in thoracic spine Plan: CONTINUE PERCOCET Q4H PRN PAIN, CONTINUE TO MONITOR (5) Hypoalbuminemia Status: Acute Plan: ALBUMIN 1 BOTTLE DAILY, TPN, CONTINUE TO MONITOR (6) Malnourished Status: Acute Plan: CONTINUE PROCALAMINE, CONTINUE ALBUMIN, CONTINUE TO MONITOR LABS AND PATIENT.
[2017-04-29] MEDS: DIFLUCAN 200 MG IV PREMIX* 200 MG/100 ML BAG IV SCH (17:26)
[2017-04-29] MEDS: PROCALAMINE 3 % 1,000 ML IV SCH (18:40)
[2017-04-29] MEDS: PATIENT'S HOME MEDICATION (Pravastatin Sodium [Pravastatin Sodium] 10 MG) PO SCH (21:44)
[2017-04-30] MEDS: FORTAZ or TAZICEF INJ 1 GM in NS 50 ML IV + SPIKE MINIBAG* 50 ML IV SCH ×3 (05:23→21:48)
[2017-04-30] MEDS: SOLU-Medrol 125 MG VIAL IVP SCH ×3 (05:23→21:50)
[2017-04-30] MEDS: PERIACTIN TAB 4 MG PO SCH ×3 (05:24→21:57)
--- NOTE | 2017-04-30 06:07 | RAD ---
HISTORY: Shortness of breath Study: Chest one view Comparison: April 29, 2017 Findings: The patient is rotated to the left. There is a pacemaker present on the left obscuring a portion of the lateral left lung. The heart is within normal limits in size. The aorta is calcified. The chicho a re normal. Abnormal density is present in the right lung base likely related to the right lung mass/ consolidation noted on the chest CT of March 23, 2017. Is not as well demonstrated on plain films as it was on the chest CT. It is unchanged in appearance from the prior examination. The lungs remain m ildly hyperinflated. Diffuse interstitial lung changes are stable. No pleural effusions are identifi ed. The bony thorax is unremarkable. IMPRESSION: No change persistent increased density in the right lung base likely representing the mass/consolida tion better demonstrated on the prior CT March 23, 2017 Hyperinflation Chronic interstitial lung changes Reported By:
[2017-04-30 06:10] LABS: BASOPHILS % (AUTO) 0.1 % (0.2-1.0); HEMATOCRIT 29.4 % (42.0-54.0); HEMOGLOBIN 9.9 g/dL (13.5-18.0); LYMPHOCYTES # (AUTO) 0.1 X10^3/uL (1.3-2.9); LYMPHOCYTES % (AUTO) 1.4 % (21.0-51.0); MEAN CORPUSCULAR HEMOGLOBIN 30.3 pg (27.0-34.0); MEAN CORPUSCULAR HGB CONC 33.8 g/dL (33.0-35.0); MEAN CORPUSCULAR VOLUME 89.5 fL (80.0-100.0); MEAN PLATELET VOLUME 9.4 fL (7.4-11.0); MONOCYTES # (AUTO) 0.3 x10^3/uL (0.3-0.8); MONOCYTES % (AUTO) 3.1 % (0.0-13.0); NEUTROPHILS # (AUTO) 10.6 x10^3/uL (2.2-4.8); NEUTROPHILS % (AUTO) 95.4 % (42.0-75.0); PLATELET COUNT 249 X10^3/uL (150.0-450.0); RED BLOOD COUNT 3.28 X10^6/uL (4.7-6.0); RED CELL DISTRIBUTION WIDTH 13.5 % (11.6-16.5); WHITE BLOOD COUNT 11.1 X10^3/uL (3.6-10.0)
[2017-04-30 06:36] LABS: ALANINE AMINOTRANSFERASE 40 Units/L (12-78); ALBUMIN 2.4 g/dL (3.4-5.0); ALKALINE PHOSPHATASE 109 Units/L (46-116); ASPARTATE AMINO TRANSFERASE 30 Units/L (15-37); BLOOD UREA NITROGEN 32 mg/dL (7-18); CALCIUM 9.2 mg/dL (8.5-10.1); CHLORIDE 100 mmol/L (98-107); COR CA(FOR HYPOALB) 10.5 mg/dL (8.5-10.1); COR NA(FOR HYPERGLY) 138 mmol/L (136-145); CREATININE 0.77 mg/dL (0.70-1.30); DIGOXIN 0.72 ng/mL (0.9-2); GLUCOSE 135 mg/dL (65-99); SODIUM 137 mmol/L (136-145); TOTAL PROTEIN 6.9 g/dL (6.4-8.2); eGFR BLACK RACES > 60 (>60); eGFR NON BLACK RACES > 60 (>60)
[2017-04-30 06:48] LABS: PLATELET MORPHOLOGY COMMENT NORMAL (NORMAL)
[2017-04-30] MEDS: DUONEB 0.5 MG/3 MG NEB SCH ×4 (08:40→21:24)
[2017-04-30] MEDS ORDERED: LEXAPRO ONE (09:41)
[2017-04-30] MEDS: LANOXIN PO SCH (09:43)
[2017-04-30] MEDS: ALDACTONE TAB 25 MG PO SCH ×2 (09:43→21:57)
[2017-04-30] MEDS: LEXAPRO PO SCH (09:43)
[2017-04-30] MEDS: ROBITUSSIN DM PO SCH ×4 (09:43→21:59)
[2017-04-30] MEDS: DIFLUCAN 200 MG IV PREMIX* 200 MG/100 ML BAG IV SCH (09:44)
[2017-04-30] MEDS: XANAX PO SCH (09:44)
[2017-04-30] MEDS: COUMADIN TAB 5 MG PO SCH (09:44)
[2017-04-30] MEDS: TAB-A-VITE PO SCH (09:44)
[2017-04-30] MEDS: VITS A C E PO SCH (09:45)
[2017-04-30] MEDS: LEVAQUIN PREMIX IV 750 MG 750 MG/150 ML BAG IV SCH (09:45)
[2017-04-30] MEDS: LUTEIN PO SCH (09:45)
[2017-04-30] MEDS: MINERALS PO SCH (09:45)
[2017-04-30] MEDS: RAMIPRIL 1.25 MG PO SCH (09:45)
[2017-04-30] MEDS: ALBUMIN HUMAN 25%- 100ML 100 ML IV SCH (09:46)
[2017-04-30] MEDS: NS 1000 ML 1,000 ML IV SCH ×2 (09:46→16:16)
[2017-04-30] MEDS: UBIDECARENONE 200 MG PO SCH (09:46)
[2017-04-30] MEDS: LASIX PO SCH ×3 (11:05→21:58)
--- NOTE | 2017-04-30 11:09 | PCM.PROG ---
Progress Note - Progress Note for Day of Date: 04/30/17 - Subjective Subjective: WAS ADMITTED TO US WITH RESPIRATORY DISTRESS, BRONCHITIS, AND DEHYDRATION. HE IS ALERT AND ORIENTED ON MORNING ROUNDS. FAMILY IS AT BEDSIDE. PATIENT CONTINUES WITH SHORTNESS OF BREATH, BUT DENIES PAIN AT THIS TIME. PATIENT REPORTS THAT HE DID NOT REQUIRE BREAKTHROUGH MEDICATIONS FOR PAIN YESTERDAY. LUNGS ARE NOTED WITH WHEEZING BILATERALLY ON AUSCULTATION. VITALS THIS AM ARE 97.7-104-20-95%-132/68. CBC REPORTS WBC INCREASE FROM 11.1, RBC 3.28 , HGB 9.9, HCT 29.4. CMP REPORTS SODIUM 137, POTASSIUM 4.2, BUN 32, CREATININE 0.77, TOTAL PROTEIN 6.9, ALBUMIN 2.4. INR 1.76. DIGOXIN LEVEL 0.72. CHEST XRAY REPORTS INTERSTITUAL LUNG CHANGES AND RIGHT MIDDLE LOBE MASS, SAME PREVIOUS DAY. HE CONTINUES ON ALBUMIN AND PROCALAMINE. WE WILL CHECK DIGOXIN AND INR LEVELS DAILY. WE WILL RECHECK CBC, CMP, AND CHEST XRAY AND FOLLOW UP WITH PATIENT IN AM. - Past Medical Family Social History Past Med/Fam/Surg Hx: No changes since H&P Allergies: Allergies No Known Drug Allergies Allergy (Verified 04/27/17 14:15) - Review of Systems ROS: No change since H&P - Vital Signs and I&O's Vital Signs: Temperature 97.7 F Pulse Rate [Left Brachial] 89 Pulse Rate [Right Radial] 104 Pulse Rate 63 Respiratory Rate 20 Blood Pressure [Right Arm] 132/68 Blood Pressure [Left Arm] 114/69 O2 Sat by Pulse Oximetry 95 Intake and Output: Intake & Output 04/27/17 04/28/17 04/29/17 04/30/17 11:59 11:59 11:59 11:59 Intake Total 907 1928 1466 Output Total 1425 550 Balance 907 503 916 - Physical Exam Oriented: Normal. negative: Time, Person, Place, Not Oriented, Unable to test, Other Eyes: Normal. negative: Blurred Vision, Diplopia, Discharge, Pain, Redness, Photophobia, Other Ear: Normal. negative: Right, Left, Swelling, Ecchymosis, Hemotypanum, Abrasion , Laceration Nose: Normal. negative: Injected, Discharge, Blood, Other Throat: Normal. negative: Tonsillar Hypertrophy, Red, Exudate, Dry, Other Respiratory: Right, Left, Wheezes Cardiovascular: Normal. negative: Tachycardia, Bradycardia, Irregular, S3, S4, Systolic, Diastolic, Murmur, Edema, Other : Normal. negative: Dysuria, Hematuria, Frequency, Discharge, Testicular Pain , Bleeding, , Other Auscultation: Bowel Sounds: Normal. negative: Bruit, Absent, Increased, Decreased, High Pitched, Other Palpation: Normal Tenderness: Normal. negative: Diffuse, RUQ, RLQ, LUQ, LLQ, Epigastric, Periumbilical, Suprapubic, Mild, Moderate, Severe, Rebound, Guarding, Rigidity, Other Skin: Decreased Turgur. negative: Normal, Rash, Papular, Macular, Maculopapular , Vesicular, Pustular, Petechial, Red, Tender, Hot, Diaphoresis, Wound, Bruising , Ecchymosis, Other Musculoskeletal: Normal. negative: Right, Left, Shoulder, Clavicle, Arm, Elbow , Forearm, Wrist, Hand, Hip, Thigh, Knee, Leg, Ankle, Foot, Back:Thoracic, Back: Lumbar, Back:Midline, Back:Paraspinous, Pelvis, Swelling, Tender, Deformity, Pulse Deficit, Motor Deficit, Sensory Deficit, Instability, Crepitance Psychiatric: Normal. negative: Anxiety, Depression, Agitation, Other Mood Description: Calm. negative: Angry, Apathetic, Depressed, Fearful, Flat, Happy, Hostile, Sad, Suspicious, Withdrawn, Anxious, Appropriate, Labile Affect: Normal. negative: Angry, Anxious, Depressed, Flat, Hysterical, Quiet, Violent Speech Pattern: Clear, Appropriate - Laboratory and Diagnostics Result Diagrams: 04/30/17 04:10 04/30/17 04:10 Labs: 04/27/17 15:58 Blood Blood Culture - Preliminary 04/27/17 15:50 Blood Blood Culture - Preliminary 04/27/17 15:08 Sputum - Expectorated Sputum Sputum Culture - Final 04/27/17 15:08 Sputum - Expectorated Sputum - Final Laboratory WBC 11.1 X10^3/uL (3.6-10.0) H 04/30/17 04:10 RBC 3.28 X10^6/uL (4.7-6.0) L 04/30/17 04:10 Hgb 9.9 g/dL (13.5-18.0) L 04/30/17 04:10 Hct 29.4 % (42.0-54.0) L 04/30/17 04:10 MCV 89.5 fL (80.0-100.0) 04/30/17 04:10 MCH 30.3 pg (27.0-34.0) 04/30/17 04:10 MCHC 33.8 g/dL (33.0-35.0) 04/30/17 04:10 RDW 13.5 % (11.6-16.5) 04/30/17 04:10 Plt Count 249 X10^3/uL (150.0-450.0) 04/30/17 04:10 Plt Count Comment Adequate (ADEQUATE) 04/30/17 04:10 MPV 9.4 fL (7.4-11.0) 04/30/17 04:10 Neut % 95.4 % (42.0-75.0) H 04/30/17 04:10 Lymph % 1.4 % (21.0-51.0) L 04/30/17 04:10 [place] % 3.1 % (0.0-13.0) 04/30/17 04:10 Eos % 0.0 % (0.9-2.9) L 04/30/17 04:10 Baso % 0.1 % (0.2-1.0) L 04/30/17 04:10 Neut # 10.6 x10^3/uL (2.2-4.8) H 04/30/17 04:10 Lymph # 0.1 X10^3/uL (1.3-2.9) L 04/30/17 04:10 [place]ami # 0.3 x10^3/uL (0.3-0.8) 04/30/17 04:10 Eos # 0.0 x10^3/uL (0.0-0.2) 04/30/17 04:10 Baso # 0.0 X10^3/uL (0.0-0.1) 04/30/17 04:10 Absolute Nucleated RBC 0.0 /100WBC 04/30/17 04:10 Total Counted 100 04/30/17 04:10 Neutrophils % (Manual) 96 % (39-76) H 04/30/17 04:10 Band Neutrophils % 2 % (0-10) 04/28/17 02:20 Lymphocytes % (Manual) 4 % (13-43) L 04/30/17 04:10 Plt Morphology Comment Normal (NORMAL) 04/30/17 04:10 RBC Morphology Normal (NORMAL) 04/30/17 04:10 INR Target Range - 04/30/17 04:10 INR 1.76 (0.8-1.3) H 04/30/17 04:10 Sodium 137 mmol/L (136-145) 04/30/17 04:10 Corrected Sodium 138 mmol/L (136-145) 04/30/17 04:10 Potassium 4.2 mmol/L (3.5-5.1) 04/30/17 04:10 Chloride 100 mmol/L (98-107) 04/30/17 04:10 Carbon Dioxide 33.0 mmol/L (21-32) H 04/30/17 04:10 BUN 32 mg/dL (7-18) H 04/30/17 04:10 Creatinine 0.77 mg/dL (0.70-1.30) 04/30/17 04:10 Est GFR (MDRD) Af Amer > 60 (>60) 04/30/17 04:10 Est GFR (MDRD) Non-Af > 60 (>60) 04/30/17 04:10 Glucose 135 mg/dL (65-99) H 04/30/17 04:10 Calcium 9.2 mg/dL (8.5-10.1) 04/30/17 04:10 Corrected Calcium 10.5 mg/dL (8.5-10.1) H 04/30/17 04:10 Total Bilirubin 0.20 mg/dL (0.2-1.0) 04/30/17 04:10 AST 30 Units/L (15-37) 04/30/17 04:10 ALT 40 Units/L (12-78) 04/30/17 04:10 Alkaline Phosphatase 109 Units/L (46-116) 04/30/17 04:10 Creatine Kinase 17 Units/L (39-308) L 04/28/17 02:20 CK-MB (CK-2) < 1.0 ng/mL (0-4.0) 04/28/17 02:20 CK/CKMB % Calc 5.9 % (<4) 04/28/17 02:20 Troponin I < 0.02 ng/mL (0-1.5) 04/28/17 02:20 B-Natriuretic Peptide 102 pg/mL (0-79) H 04/27/17 13:58 Total Protein 6.9 g/dL (6.4-8.2) 04/30/17 04:10 Albumin 2.4 g/dL (3.4-5.0) L 04/30/17 04:10 Globulin 4.5 g/dL (2.5-4.5) 04/30/17 04:10 Albumin/Globulin Ratio 0.5 Ratio (1.1-2.1) L 04/30/17 04:10 Digoxin 0.72 ng/mL (0.9-2) L 04/30/17 04:10 - Plan (1) Bronchitis Status: Acute Plan: FORTAZ 1 GM IV Q8H, DISCONTINUE CLEOCIN IV, START LEVAQUIN IV DUONEBS QID PRN, CONTINUE TO MONITOR (2) Respiratory distress, acute Status: Acute Plan: SOLUMEDROL 80MG IV Q8H, DUONEBS QID PRN, CONTINUE TO MONITOR (3) Dehydration Status: Acute Plan: NORMAL SALINE, TPN, CONTINUE TO MONITOR (4) Back pain, thoracic Status: Acute Qualifiers: Chronicity: acute Back pain laterality: midline Qualified Code(s): M54.6 - Pain in thoracic spine Plan: CONTINUE PERCOCET Q4H PRN PAIN, CONTINUE TO MONITOR (5) Hypoalbuminemia Status: Acute Plan: ALBUMIN 1 BOTTLE DAILY, TPN, CONTINUE TO MONITOR (6) Malnourished Status: Acute Plan: CONTINUE PROCALAMINE, CONTINUE ALBUMIN, CONTINUE TO MONITOR LABS AND PATIENT.
[2017-04-30] MEDS ORDERED: XANAX PO PRN (14:53)
[2017-04-30] MEDS: PROCALAMINE 3 % 1,000 ML IV SCH (17:11)
[2017-04-30] MEDS: CHECK PATCH XX SCH ×2 (17:51→21:58)
[2017-04-30] MEDS ORDERED: COLACE CAP 100 MG PO SCH (21:00)
[2017-04-30] MEDS ORDERED: MILK OF MAGNESIA PO SCH (21:00)
[2017-04-30] MEDS: PATIENT'S HOME MEDICATION (Pravastatin Sodium [Pravastatin Sodium] 10 MG) PO SCH (21:59)
[2017-05-01] MEDS: FORTAZ or TAZICEF INJ 1 GM in NS 50 ML IV + SPIKE MINIBAG* 50 ML IV SCH ×2 (05:37→15:12)
[2017-05-01] MEDS: PERIACTIN TAB 4 MG PO SCH ×2 (05:37→14:22)
[2017-05-01 06:16] LABS: BASOPHILS % (AUTO) 0.1 % (0.2-1.0); HEMATOCRIT 27.4 % (42.0-54.0); HEMOGLOBIN 9.5 g/dL (13.5-18.0); LYMPHOCYTES # (AUTO) 0.1 X10^3/uL (1.3-2.9); LYMPHOCYTES % (AUTO) 1.1 % (21.0-51.0); MEAN CORPUSCULAR HEMOGLOBIN 31.2 pg (27.0-34.0); MEAN CORPUSCULAR HGB CONC 34.7 g/dL (33.0-35.0); MEAN PLATELET VOLUME 9.4 fL (7.4-11.0); MONOCYTES # (AUTO) 0.3 x10^3/uL (0.3-0.8); MONOCYTES % (AUTO) 3.4 % (0.0-13.0); NEUTROPHILS # (AUTO) 9.4 x10^3/uL (2.2-4.8); NEUTROPHILS % (AUTO) 95.4 % (42.0-75.0); PLATELET COUNT 251 X10^3/uL (150.0-450.0); RED BLOOD COUNT 3.04 X10^6/uL (4.7-6.0); RED CELL DISTRIBUTION WIDTH 13.7 % (11.6-16.5); WHITE BLOOD COUNT 9.9 X10^3/uL (3.6-10.0)
[2017-05-01 06:34] LABS: ALANINE AMINOTRANSFERASE 47 Units/L (12-78); ALBUMIN 2.4 g/dL (3.4-5.0); ALKALINE PHOSPHATASE 106 Units/L (46-116); ASPARTATE AMINO TRANSFERASE 30 Units/L (15-37); BLOOD UREA NITROGEN 27 mg/dL (7-18); CALCIUM 9.2 mg/dL (8.5-10.1); CHLORIDE 102 mmol/L (98-107); COR CA(FOR HYPOALB) 10.5 mg/dL (8.5-10.1); COR NA(FOR HYPERGLY) 139 mmol/L (136-145); CREATININE 0.76 mg/dL (0.70-1.30); GLUCOSE 127 mg/dL (65-99); SODIUM 138 mmol/L (136-145); TOTAL PROTEIN 6.2 g/dL (6.4-8.2); eGFR BLACK RACES > 60 (>60); eGFR NON BLACK RACES > 60 (>60)
--- NOTE | 2017-05-01 06:45 | RAD ---
HISTORY: Shortness of breath Study: Chest one view Comparison: April 30, 2017, CT chest March 23, 2017 Findings: The patient is rotated to the left. There is a pacemaker present on the left obscuring a portion of the left mid lung. The heart is within normal limits in size. The aorta is calcified. The chicho are n ormal. Abnormal density is again demonstrated in the right lung base likely related to the mass/cons olidation demonstrated on the prior chest CT. It is not as well demonstrated on the plain film as on the chest CT. It is unchanged in appearance from the prior examination. Hyperinflation is present. Diffuse interstitial lung changes are present. The bony thorax is unremarkable. IMPRESSION: No significant change from the prior examination Reported By:
[2017-05-01 07:06] LABS: PLATELET MORPHOLOGY COMMENT NORMAL (NORMAL)
[2017-05-01] MEDS: DUONEB 0.5 MG/3 MG NEB SCH ×2 (08:42→12:03)
[2017-05-01] MEDS ORDERED: LEXAPRO ONE (08:46)
[2017-05-01] MEDS: LEXAPRO PO SCH (08:58)
[2017-05-01] MEDS: ALDACTONE TAB 25 MG PO SCH (08:58)
[2017-05-01] MEDS: COUMADIN TAB 5 MG PO SCH (08:58)
[2017-05-01] MEDS: TAB-A-VITE PO SCH (08:59)
[2017-05-01] MEDS: LANOXIN PO SCH (08:59)
[2017-05-01] MEDS: MINERALS PO SCH (09:00)
[2017-05-01] MEDS: DIFLUCAN 200 MG IV PREMIX* 200 MG/100 ML BAG IV SCH (09:00)
[2017-05-01] MEDS: RAMIPRIL 1.25 MG PO SCH (09:00)
[2017-05-01] MEDS: VITS A C E PO SCH (09:00)
[2017-05-01] MEDS: LUTEIN PO SCH (09:00)
[2017-05-01] MEDS: ALBUMIN HUMAN 25%- 100ML 100 ML IV SCH (09:01)
[2017-05-01] MEDS: CHECK PATCH XX SCH (09:01)
[2017-05-01] MEDS: UBIDECARENONE 200 MG PO SCH (09:01)
[2017-05-01] MEDS: ROBITUSSIN DM PO SCH ×2 (09:15→13:44)
[2017-05-01] MEDS: LASIX PO SCH (09:15)
[2017-05-01 12:06] VITALS: BP 128/71
[2017-05-01] MEDS: PROCALAMINE 3 % 1,000 ML IV SCH (15:13)
[2017-05-01] MEDS: NS 1000 ML 1,000 ML IV SCH (15:13)
--- NOTE | 2017-05-04 14:13 | DR.CARTERD ---
- Discharge Summary for: Discharge Summary for Date of:: 05/01/17 - Admission Date Date of Admission: 04/27/17 - Admission Diagnoses Admission Diagnosis: (1) Bronchitis (2) Respiratory distress, acute (3) Dehydration (4) Back pain, thoracic - Discharge Date Discharge Date: 05/01/17 - Discharge Diagnoses Discharge Diagnosis: (1) Bronchitis (2) Respiratory distress, acute (3) Dehydration (4) Back pain, thoracic (5) Hypoalbuminemia (6) Malnourished - Hospital Course Hospital Course: IS A 71 YEAR OLD PATIENT OF OURS WHO PRESENTED TO THE ER WITH COMPLAINTS OF SHORTNESS OF BREATH, COUGHING UP YELLOW SPUTUM, BACK PAIN, WEAKNESS, AND DECREASED APPETITE. PATIENT STATED THAT HE WAS DIAGNOSED WITH CANCER ABOUT A MONTH AGO. HE REPORTS THAT HE HAS A MASS IN HIS LUNGS AND TUMORS IN HIS BACK AT T6-T11. HE HAS A HISTORY OF CONGESTIVE HEART FAILURE AND COPD. HE RECENTLY UNDERWENT A BIOPSY AT [facility] WITH . ON ARRIVAL TO ER, VITALS WERE 97.4-16-105-94%-98/61. CBC WNL EXCEPT WBC 10.1, RBC 3.63, HGB 11.2, HCT 32.5. CMP WNL EXCEPT SODIUM 130, CHLORIDE 95, CARBON DIOXIDE 32.7, BUN 37, CREATININE 1.37, GLUCOSE 111, CALCIUM 11.4, ALKALINE PHOSPHATASE 142, CRATINE KINASE 30, BNP 102, ALBUMIN 2.0. INR 1.66. CHEST XRAY REPORTED DIFFUSE FIBROTIC DISEASE OF THE LUNGS. HE WAS GIVEN SOLUMEDROL 125MG, CLEOCIN 300MG, AND DUONEBS IN THE ER. WE ADMITTED PATIENT FOR FURTHER TREATMENT AND EVALUATION. WE STARTED HIM ON NS @ KVO, CLEOCIN 300MG Q8H, FORTAZ 1GM Q8H, ROBITUSSION 10ML QID, AND MVI TO EACH BAG OF IV FLUIDS. DAY 2 OF STAY: PATIENT NOTED WITH COMPLAINTS OF SHORTNESS OF BREATH, PRODUCTIVE COUGH, WEAKNESS, AND MODERATED BACK PAIN. LUNGS WERE NOTED WITH WHEEZING BILATERALLY ON AUSCULTATION. PATIENTS FAMILY EXPRESSED CONCERNS THAT PAIN MEDICATION IS NOT MANAGING PATIENTS PAIN EFFECTIVELY. WE STARTED A DURAGESIC PATCH 25MCG TO BE CHANGED EVERY THREE DAYS. WE STARTED ALBUMIN DUE TO LEVEL OF 1.9. WE ALSO STARTED PERIPHERAL TPN AND LEVAQUIN IV DAILY. WE REQUESTED BIOPSY RESULTS FROM [facility] [place]. OVER THE NEXT SEVERAL DAYS, PATIENTS SHORTNESS OF BREATH,COUGH, AND WHEEZING BEGAN TO IMPROVE. PAIN WAS CONTROLLED WELL WITH DURAGESIC PATIENT. PATIENT DENIES NEEDING PRN PAIN MEDICATIONS. WE CONTINUED PATIENT ON LEVAQUIN. FAMILY EXPRESSED CONCERNS THAT PATIENT MAY BE BECOMING DEPRESSED DUE TO CANCER DIAGNOSIS. WE STARTED HIM ON LEXAPRO 5MG PO DAILY AND CONTINUED TO MONITOR. ON DAY OF DISCHARGE, BIANKA IS ALERT AND ORIENTED, ON SIDE OF BED ON MORNING ROUNDS. HE REPORTS FEELING MUCH BETTER THIS MORNING AND VERBALIZES THE DESIRE TO BE DISCHARGED HOME. HE IS WITH NO COMPLAINTS. VITALS THIS AM ARE 97.5-97-20- 95%-129/79. CBC REPORTS WBC 9.9, RBC 3.04, HGB 9.5, HCT 27.4. CMP REPORTS SODIUM 138, BUN 34, CREATININE 27, GLUCOSE 127, CALCIUM 10.5, TOTAL BILIRUBIN 0.10, TOTAL PROTEIN 6.2, ALBUMIN 2.4. INR 2.13, DIGOXIN 0.76. CHEST XRAY STABLE. WE PLANNED FOR DISCHARGE. INSTRUCTIONS FOR MEDICATIONS AND FOLLOW UP WERE DISCUSSED WITH PATIENT AND FAMILY. BOTH VERBALIZED UNDERSTANDING. WE SET UP REFERRAL FOR IN [place] PER PATIENTS REQUEST. PATIENT WAS DISCHARGED HOME WITH FAMILY IN STABLE CONDITION WITH PRESCRIPTIONS FOR PERIACTIN 4MG PO BID, LEXAPRO 5MG PO DAILY, FENTANYL 25 MCG PATCH TD Q72H, DUONEB QID PRN, AND PERCOCET 5/325 PO Q4H PRN PAIN. HE IS INSTRUCTED TO CONTINUE CURRENT HOME MEDICATIONS WITH THE EXCEPTION OF OXYCODONE. HE HAS INSTRUCTIONS TO FOLLOW UP IN OUR OFFICE IN 2 WEEKS AND WITH JOVAN HARVEY NEXT WEEK. - Discharge Medications Discharge Medications: Alprazolam [XANAX 0.5 MG *] 0.5 mg PO BID 04/27/17 [History] Carvedilol [COREG TAB 6.25 MG *] 6.25 mg PO BID 04/27/17 [History] Cyproheptadine HCl 4 mg PO TID 04/27/17 [History] Digoxin [Lanoxin] 125 mcg PO DAILY 04/27/17 [History] Multivit-Min/FA/Lycopen/Lutein [Centrum Silver Tablet] 1 tab PO DAILY 04/27/17 [ History] Omeprazole 40 mg PO DAILY 04/27/17 [History] Potassium Chloride 20 meq PO BID 04/27/17 [History] Pravastatin Sodium 10 mg PO HS 04/27/17 [History] Ramipril [Altace 1.25 mg] 1.25 mg PO DAILY 04/27/17 [History] Spironolactone [ALDACTONE 25 MG *] 25 mg PO BID 04/27/17 [History] Ubidecarenone [Coenzyme Q-10] 200 mg PO DAILY 04/27/17 [History] Vits A,C,E/Lutein/Minerals [Ocuvite tab (orig)] 1 tab PO DAILY 04/27/17 [History ] Warfarin Sodium [COUMADIN 5 MG *] 5 mg PO DAILY 04/27/17 [History] Cyproheptadine HCl [PERIACTIN 4 MG TAB *] 4 mg PO BID #60 tab 05/01/17 [Rx] Escitalopram Oxalate [LEXAPRO 10 MG TAB *] 5 mg PO DAILY #30 tab 05/01/17 [Rx] Fentanyl 25 Mcg/Hr [DURAGESIC PATCH 25 mcg/hr *] 1 ea TD Q72H #10 patch [Rx] Furosemide [LASIX TAB 40 MG *] 40 mg PO BID PRN #0 05/01/17 [Rx] Ipratropium/Albuterol Nebule [DUONEB 0.5 MG/3 MG NEBULE *] 1 ea NEB QID PRN # 120 each 05/01/17 [Rx] Oxycodone/Acet 5 mg/325 mg [PERCOCET 5/325 MG *] 1 ea PO Q4H PRN #180 tab [Rx]
== END 2017-05-01 16:15 | disposition home or self-care (01) | DRG 202 ==
LOC: ER 14:03 → MED/SURG 15:03 → OBSVTOIN 15:03
PROVIDERS: ADMIT Internal Medicine; ATTEND Internal Medicine
DX: J20.8 Acute bronchitis due to other specified organisms (principal); R06.00 Dyspnea, unspecified; C34.90 Malignant neoplasm of unspecified part of unspecified bronchus or lung; E86.0 Dehydration; R06.02 Shortness of breath; M54.6 Pain in thoracic spine; R53.1 Weakness; J44.9 Chronic obstructive pulmonary disease, unspecified; I25.10 Atherosclerotic heart disease of native coronary artery without angina pectoris; R94.31 Abnormal electrocardiogram [ECG] [EKG]; R91.8 Other nonspecific abnormal finding of lung field; E88.09 Other disorders of plasma-protein metabolism, not elsewhere classified; E46 Unspecified protein-calorie malnutrition; R79.1 Abnormal coagulation profile; R73.09 Other abnormal glucose
CPT/HCPCS: 36415; 71010; 80053; 80162; 82550; 82553; 83880; 84484; 85025; 85610; 87040; 87070; 87205; 93005; 94640; 94760; 96365; 96374; 99284; A4222; B5200; P9047; S0077; J0713; J1450; J1956; J2930; J7620

== ENCOUNTER → 2017-06-16 | Outpatient (CLI) | payer BC, OTHER ==
[2017-06-16 13:15] LABS: BASOPHILS # (AUTO) 0.1 X10^3/uL (0.0-0.1); BASOPHILS % (AUTO) 0.6 % (0.2-1.0); EOSINOPHILS # (AUTO) 0.1 x10^3/uL (0.0-0.2); EOSINOPHILS % (AUTO) 1.5 % (0.9-2.9); HEMATOCRIT 31.5 % (42.0-54.0); HEMOGLOBIN 10.8 g/dL (13.5-18.0); LYMPHOCYTES % (AUTO) 11.1 % (21.0-51.0); MEAN CORPUSCULAR HEMOGLOBIN 29.3 pg (27.0-34.0); MEAN CORPUSCULAR HGB CONC 34.2 g/dL (33.0-35.0); MEAN CORPUSCULAR VOLUME 85.7 fL (80.0-100.0); MEAN PLATELET VOLUME 8.7 fL (7.4-11.0); MONOCYTES % (AUTO) 11.7 % (0.0-13.0); NEUTROPHILS # (AUTO) 6.7 x10^3/uL (2.2-4.8); NEUTROPHILS % (AUTO) 75.1 % (42.0-75.0); PLATELET COUNT 323 X10^3/uL (150.0-450.0); RED BLOOD COUNT 3.68 X10^6/uL (4.7-6.0); RED CELL DISTRIBUTION WIDTH 14.8 % (11.6-16.5); WHITE BLOOD COUNT 8.9 X10^3/uL (3.6-10.0)
[2017-06-16 13:29] LABS: ALANINE AMINOTRANSFERASE 15 Units/L (12-78); ALBUMIN 2.6 g/dL (3.4-5.0); ALKALINE PHOSPHATASE 114 Units/L (46-116); ASPARTATE AMINO TRANSFERASE 19 Units/L (15-37); BLOOD UREA NITROGEN 20 mg/dL (7-18); CALCIUM 10.1 mg/dL (8.5-10.1); CARBON DIOXIDE 33.3 mmol/L (21-32); CHLORIDE 97 mmol/L (98-107); COR CA(FOR HYPOALB) 11.2 mg/dL (8.5-10.1); CREATININE 1.06 mg/dL (0.70-1.30); SODIUM 135 mmol/L (136-145); TOTAL PROTEIN 8.2 g/dL (6.4-8.2); eGFR BLACK RACES > 60 (>60); eGFR NON BLACK RACES > 60 (>60)
== END ==
LOC: LAB 12:48
PROVIDERS: ATTEND Internal Medicine Medical Oncology
DX: C79.51 Secondary malignant neoplasm of bone (principal); C34.2 Malignant neoplasm of middle lobe, bronchus or lung
CPT/HCPCS: 36415; 80053; 85025

== ENCOUNTER → 2017-06-25 | Outpatient (CLI) | payer BC, OTHER ==
[2017-06-25 16:38] LABS: BASOPHILS # (AUTO) 0.1 X10^3/uL (0.0-0.1); EOSINOPHILS # (AUTO) 0.1 x10^3/uL (0.0-0.2); EOSINOPHILS % (AUTO) 2.1 % (0.9-2.9); HEMATOCRIT 31.3 % (42.0-54.0); HEMOGLOBIN 10.6 g/dL (13.5-18.0); LYMPHOCYTES # (AUTO) 0.9 X10^3/uL (1.3-2.9); LYMPHOCYTES % (AUTO) 15.8 % (21.0-51.0); MEAN CORPUSCULAR HGB CONC 33.8 g/dL (33.0-35.0); MEAN CORPUSCULAR VOLUME 85.8 fL (80.0-100.0); MEAN PLATELET VOLUME 8.5 fL (7.4-11.0); MONOCYTES # (AUTO) 0.6 x10^3/uL (0.3-0.8); MONOCYTES % (AUTO) 10.8 % (0.0-13.0); NEUTROPHILS % (AUTO) 70.3 % (42.0-75.0); PLATELET COUNT 357 X10^3/uL (150.0-450.0); RED BLOOD COUNT 3.65 X10^6/uL (4.7-6.0); RED CELL DISTRIBUTION WIDTH 14.8 % (11.6-16.5); WHITE BLOOD COUNT 5.7 X10^3/uL (3.6-10.0)
[2017-06-25 16:51] LABS: ALANINE AMINOTRANSFERASE 15 Units/L (12-78); ALBUMIN 2.4 g/dL (3.4-5.0); ALKALINE PHOSPHATASE 101 Units/L (46-116); ASPARTATE AMINO TRANSFERASE 18 Units/L (15-37); BLOOD UREA NITROGEN 15 mg/dL (7-18); CALCIUM 8.9 mg/dL (8.5-10.1); CARBON DIOXIDE 31.1 mmol/L (21-32); CHLORIDE 99 mmol/L (98-107); COR CA(FOR HYPOALB) 10.2 mg/dL (8.5-10.1); COR NA(FOR HYPERGLY) 135 mmol/L (136-145); CREATININE 0.92 mg/dL (0.70-1.30); SODIUM 135 mmol/L (136-145); TOTAL PROTEIN 7.5 g/dL (6.4-8.2); eGFR BLACK RACES > 60 (>60); eGFR NON BLACK RACES > 60 (>60)
== END | disposition home or self-care (01) | DRG 182 ==
LOC: LAB 16:09
PROVIDERS: ATTEND Internal Medicine Medical Oncology
DX: C34.2 Malignant neoplasm of middle lobe, bronchus or lung (principal); I73.89 Other specified peripheral vascular diseases
CPT/HCPCS: 36415; 80053; 85025; 85610

== ENCOUNTER → 2017-07-09 | Outpatient (CLI) | payer BC, OTHER | LOC: LAB 13:33 | PROVIDERS: ATTEND Internal Medicine Medical Oncology | DX: Z79.01 Long term (current) use of anticoagulants (principal); C79.51 Secondary malignant neoplasm of bone; C34.2 Malignant neoplasm of middle lobe, bronchus or lung | CPT/HCPCS: 36415; 85610 ==

== ENCOUNTER → 2017-07-23 | Outpatient (CLI) | payer BC, OTHER ==
[2017-07-23 15:30] LABS: BASOPHILS % (AUTO) 0.7 % (0.2-1.0); EOSINOPHILS # (AUTO) 0.1 x10^3/uL (0.0-0.2); EOSINOPHILS % (AUTO) 2.2 % (0.9-2.9); HEMATOCRIT 33.9 % (42.0-54.0); HEMOGLOBIN 11.1 g/dL (13.5-18.0); LYMPHOCYTES # (AUTO) 1.2 X10^3/uL (1.3-2.9); LYMPHOCYTES % (AUTO) 19.9 % (21.0-51.0); MEAN CORPUSCULAR HEMOGLOBIN 27.7 pg (27.0-34.0); MEAN CORPUSCULAR HGB CONC 32.8 g/dL (33.0-35.0); MEAN CORPUSCULAR VOLUME 84.5 fL (80.0-100.0); MEAN PLATELET VOLUME 8.8 fL (7.4-11.0); MONOCYTES # (AUTO) 0.7 x10^3/uL (0.3-0.8); MONOCYTES % (AUTO) 12.3 % (0.0-13.0); NEUTROPHILS # (AUTO) 3.9 x10^3/uL (2.2-4.8); NEUTROPHILS % (AUTO) 64.9 % (42.0-75.0); PLATELET COUNT 271 X10^3/uL (150.0-450.0); RED BLOOD COUNT 4.02 X10^6/uL (4.7-6.0); RED CELL DISTRIBUTION WIDTH 17.2 % (11.6-16.5); WHITE BLOOD COUNT 5.9 X10^3/uL (3.6-10.0)
[2017-07-23 15:40] LABS: ALANINE AMINOTRANSFERASE 13 Units/L (12-78); ALBUMIN 2.8 g/dL (3.4-5.0); ALKALINE PHOSPHATASE 115 Units/L (46-116); ASPARTATE AMINO TRANSFERASE 16 Units/L (15-37); BLOOD UREA NITROGEN 11 mg/dL (7-18); CALCIUM 9.5 mg/dL (8.5-10.1); CARBON DIOXIDE 29.3 mmol/L (21-32); CHLORIDE 103 mmol/L (98-107); COR CA(FOR HYPOALB) 10.5 mg/dL (8.5-10.1); CREATININE 0.89 mg/dL (0.70-1.30); SODIUM 138 mmol/L (136-145); TOTAL PROTEIN 7.9 g/dL (6.4-8.2); eGFR BLACK RACES > 60 (>60); eGFR NON BLACK RACES > 60 (>60)
[2017-07-23 16:24] LABS: IRON 20 ug/dL (50-175); TOTAL IRON BINDING CAPACITY 211 ug/dL (250-450)
== END ==
LOC: LAB 15:08
PROVIDERS: ATTEND Internal Medicine Medical Oncology
DX: C79.51 Secondary malignant neoplasm of bone (principal); C34.2 Malignant neoplasm of middle lobe, bronchus or lung; D64.9 Anemia, unspecified; Z79.01 Long term (current) use of anticoagulants
CPT/HCPCS: 36415; 80053; 82728; 83540; 83550; 85025; 85610

== ENCOUNTER 2017-08-31 12:47 | Emergency (ER) | payer BC, OTHER ==
[2017-08-31 13:02] VITALS: BP 114/71; BMI 15.2
--- NOTE | 2017-08-31 13:08 | DR.SOBA ---
HPI - Time Seen Time seen: 13:00 - Primary Care Physician Primary Care Physician: KATE - Complaints Chief Complaint Doctors Comments: Patient has been in his usual state of health until a few days ago and this AM started having increasing dyspnea. He had labs drawn this AM by his primary care physician. He is afebrile and a known cancer patient Chief Complaint:: FAMILY STATED THAT PATIENT HAS BEEN SOB TIMES 3 DAYS AND HAS WORSED. HE IS NOW COUGHING UP STUFF. PATIENT FAMILY STATED THAT HE TAKES TERCEVA DAILY AND THAT DR. ALDANA WANTS HIM TO BE SEEN IF HE IS EVER SOB. - Source History Provided: Patient - Mode of Arrival Mode of Arrival: Wheelchair - Timing Onset of Chief Complaint: 08/28/17 PMH - PMH Past Medical History: Yes Past Medical History: CHF, COPD, Coronary Artery Disease Past Surgical History: Yes Surgical History: Appendectomy, Ortho Surgery, TURP - Family History History of Family Medical Conditions: Yes Family Medical History: MD, Coronary Artery Disease - Social History Does any household member use tobacco: No Do you use any recreational Drugs:: No Lives With: Spouse Lives Where: Home - infectious screening In the last 2 months have you had wt loss of >10#?: NO Have you had fever, night sweats or hemotysis?: No Have you traveled outside the country in the last 6 months?: No Isolation: Standard ROS - Review of Systems Constitutional: negative: Diaphoresis Eyes: No Symptoms Reported ENTM: No Symptoms Reported Respiratoy: No Symptoms Reported Cardiovascular: No Symptoms Reported Gastrointestinal/Abdominal: No Symptoms Reported Genitourinary: No Symptoms Reported Neurological: No Symptoms Reported Musculoskeletal: No Symptoms Reported Integumentary: No Symptoms Reported Hematologic/Lymphatic: No Symptoms Reported Endocrine: No Symptoms Reported Psychiatric: No Symptoms Reported All Other Systems: Reviewed and Negative PE - Vital Signs Vitals: Temperature 98.1 F Pulse Rate 90 Respiratory Rate 20 Blood Pressure [Right Arm] 129/79 Blood Pressure [Left Arm] 128/71 Blood Pressure 114/71 O2 Sat by Pulse Oximetry 96 - General General Appearance: Alert, In No Apparent Distress - Head Head Exam: Normal Inspection, Atraumatic - Eyes Eye exam: Normal Appearance, PERRL, EOMI - ENT ENT Exam: Normal Exam - Neck Neck Exam: Normal Inspection, Full ROM - Chest Chest Inspection: Normal Inspection - Respiratory Respiratory Exam: Normal Lung Sounds Bilat Respiratory Exam: Bilateral Clear to Auscultation - Cardiovascular Cardiovascular Exam: Regular Rate, Normal Rhythm - Extremities Extremities Exam: Normal Inspection, Full ROM - Back Back Exam: Normal Inspection, Full ROM - Neurologic Neurological Exam: Alert, Oriented X3, CN II-XII Intact - Psychiatric Psychiatric Exam: Normal Affect, Normal Mood - Skin Skin Exam: Warm, Dry, Intact Course - Reevaluation 1st: Unchanged ROR - Labs Reviewed Result Diagrams: 08/31/17 10:45 Laboratory: 08/31/17 13:26 Sputum - Expectorated Sputum - Final D-Dimer 439 ng/mL (0-400) H* 08/31/17 10:45 Sodium Cancelled 08/31/17 10:45 Corrected Sodium Cancelled 08/31/17 10:45 Potassium Cancelled 08/31/17 10:45 Chloride Cancelled 08/31/17 10:45 Carbon Dioxide Cancelled 08/31/17 10:45 BUN Cancelled 08/31/17 10:45 Creatinine Cancelled 08/31/17 10:45 Est GFR (MDRD) Af Amer Cancelled 08/31/17 10:45 Est GFR (MDRD) Non-Af Cancelled 08/31/17 10:45 Glucose Cancelled 08/31/17 10:45 Calcium Cancelled 08/31/17 10:45 Corrected Calcium Cancelled 08/31/17 10:45 Total Bilirubin Cancelled 08/31/17 10:45 AST Cancelled 08/31/17 10:45 ALT Cancelled 08/31/17 10:45 Alkaline Phosphatase Cancelled 08/31/17 10:45 Total Protein Cancelled 08/31/17 10:45 Albumin Cancelled 08/31/17 10:45 Globulin Cancelled 08/31/17 10:45 Albumin/Globulin Ratio Cancelled 08/31/17 10:45 - XRAY XRAY Interpreted by: Radiologist (CTA chest: No pulmonary embolus. Decreasing size of the right middle lobe neoplastic mass, Progressive metastatic disease to the thoracic spine, COPD and emphysema and central peribronchial thickening, Right hilar adenopathy) - Diagnosis Discharge Problem: metastatic thoracic spine disease Dyspnea, unspecified Qualifiers: Dyspnea type: shortness of breath Qualified Code(s): R06.02 - Shortness of breath; R06.00 - Dyspnea, unspecified; R06.01 - Orthopnea COPD (chronic obstructive pulmonary disease) Qualifiers: COPD type: unspecified COPD Qualified Code(s): J44.9 - Chronic obstructive pulmonary disease, unspecified - Discharge Plan Condition: Stable - Follow ups/Referrals Follow ups/Referrals: Wayne Blackman [Primary Care Provider] - 3 days - Instructions
--- NOTE | 2017-08-31 13:48 | RAD ---
Examination portable AP chest History: Dyspnea, history of lung CA Comparison reference: 05/01/2017 Findings: Continued normal heart size with single pole AICD pacing device. Diffuse interstitial thick ening and fibrosis. Chronic pleural scarring left costophrenic angle. No evidence for mass formation, large pleural effusion or pneumothorax. Impression: No acute process identified. Postsurgical findings as noted. Chronic pleural thickening l eft base. Reported By:
--- NOTE | 2017-08-31 14:58 | CT ---
History: Shortness of breath and elevated D-dimer Study: CTA chest with 100 mL Omnipaque. Sagittal and coronal MIPS of the pulmonary arteries were disp layed. Comparison: March 23, 2017 Findings:There is a spiculated right middle lobe lung mass measuring 5.5 cm transverse width by 2.6 c m AP diameter, decreased in size. There is a new 1.8 cm AP diameter ill-defined density in the right lower lobe posterior and medial. There is 2.1 cm right hilar adenopathy. There are few small bullae a t the lung apices. There is progressive metastatic bone disease to the thoracic spine at T11 the T10 T9-T8 T6-T5-T4-T3 and T2 with compression fractures at T5 and T4 and T3. The lungs are moderately hyp erinflated. There is prominent central peribronchial thickening. There is focal left posterior basila r pleural calcification and there is mild dependent left pleural thickening or effusion. Visualized u pper abdomen is unremarkable. Impression: 1. No evidence for pulmonary embolus 2. Decreasing size of the right middle lobe neoplastic mass 3. Progressive metastatic disease to the thoracic spine 4. COPD and emphysema and central peribronchial thickening 5. Right hilar adenopathy Reported By:
[2017-08-31] MEDS ORDERED: SOLU-Medrol 125 MG VIAL IVP ONE (15:12)
[2017-08-31] MEDS ORDERED: SOLU-Medrol 125 MG VIAL ONE (15:21)
== END 2017-08-31 15:45 | disposition home or self-care (01) ==
LOC: ER 12:57
DX: C41.2 Malignant neoplasm of vertebral column (principal); R06.02 Shortness of breath; R06.00 Dyspnea, unspecified; R06.01 Orthopnea; J44.9 Chronic obstructive pulmonary disease, unspecified
CPT/HCPCS: 36415; 71010; 71275; 85378; 87070; 87205; 96365; 96374; 99282; 99283; A4222; J2930

== ENCOUNTER → 2017-08-31 | Outpatient (CLI) | payer BC, OTHER ==
[2017-08-31 11:08] LABS: BASOPHILS % (AUTO) 0.6 % (0.2-1.0); EOSINOPHILS # (AUTO) 0.3 x10^3/uL (0.0-0.2); EOSINOPHILS % (AUTO) 5.6 % (0.9-2.9); HEMATOCRIT 35.5 % (42.0-54.0); HEMOGLOBIN 11.8 g/dL (13.5-18.0); LYMPHOCYTES # (AUTO) 0.9 X10^3/uL (1.3-2.9); LYMPHOCYTES % (AUTO) 15.9 % (21.0-51.0); MEAN CORPUSCULAR HEMOGLOBIN 26.7 pg (27.0-34.0); MEAN CORPUSCULAR HGB CONC 33.2 g/dL (33.0-35.0); MEAN CORPUSCULAR VOLUME 80.3 fL (80.0-100.0); MEAN PLATELET VOLUME 9.2 fL (7.4-11.0); MONOCYTES # (AUTO) 0.5 x10^3/uL (0.3-0.8); MONOCYTES % (AUTO) 9.3 % (0.0-13.0); NEUTROPHILS # (AUTO) 3.9 x10^3/uL (2.2-4.8); NEUTROPHILS % (AUTO) 68.6 % (42.0-75.0); PLATELET COUNT 257 X10^3/uL (150.0-450.0); RED BLOOD COUNT 4.42 X10^6/uL (4.7-6.0); RED CELL DISTRIBUTION WIDTH 17.3 % (11.6-16.5); WHITE BLOOD COUNT 5.7 X10^3/uL (3.6-10.0)
[2017-08-31 11:16] LABS: ALANINE AMINOTRANSFERASE 15 Units/L (12-78); ALBUMIN 2.9 g/dL (3.4-5.0); ALKALINE PHOSPHATASE 98 Units/L (46-116); ASPARTATE AMINO TRANSFERASE 18 Units/L (15-37); BLOOD UREA NITROGEN 14 mg/dL (7-18); CALCIUM 7.8 mg/dL (8.5-10.1); CARBON DIOXIDE 31.7 mmol/L (21-32); CHLORIDE 102 mmol/L (98-107); COR CA(FOR HYPOALB) 8.7 mg/dL (8.5-10.1); CREATININE 0.82 mg/dL (0.70-1.30); SODIUM 144 mmol/L (136-145); TOTAL PROTEIN 7.3 g/dL (6.4-8.2); eGFR BLACK RACES > 60 (>60); eGFR NON BLACK RACES > 60 (>60)
== END ==
LOC: LAB 10:42
PROVIDERS: ATTEND Internal Medicine Medical Oncology
DX: C34.2 Malignant neoplasm of middle lobe, bronchus or lung (principal)
CPT/HCPCS: 36415; 80053; 85025

== ENCOUNTER 2017-09-07 14:34 | Observation (INO) | payer BC, OTHER ==
[2017-09-07 16:17] LABS: BASOPHILS % (AUTO) 0.3 % (0.2-1.0); EOSINOPHILS # (AUTO) 0.2 x10^3/uL (0.0-0.2); EOSINOPHILS % (AUTO) 3.7 % (0.9-2.9); HEMATOCRIT 37.7 % (42.0-54.0); HEMOGLOBIN 12.5 g/dL (13.5-18.0); LYMPHOCYTES # (AUTO) 0.7 X10^3/uL (1.3-2.9); LYMPHOCYTES % (AUTO) 10.9 % (21.0-51.0); MEAN CORPUSCULAR HEMOGLOBIN 26.5 pg (27.0-34.0); MEAN CORPUSCULAR HGB CONC 33.2 g/dL (33.0-35.0); MEAN CORPUSCULAR VOLUME 79.9 fL (80.0-100.0); MEAN PLATELET VOLUME 9.1 fL (7.4-11.0); MONOCYTES # (AUTO) 0.6 x10^3/uL (0.3-0.8); NEUTROPHILS # (AUTO) 4.9 x10^3/uL (2.2-4.8); NEUTROPHILS % (AUTO) 75.1 % (42.0-75.0); PLATELET COUNT 227 X10^3/uL (150.0-450.0); RED BLOOD COUNT 4.72 X10^6/uL (4.7-6.0); WHITE BLOOD COUNT 6.5 X10^3/uL (3.6-10.0)
[2017-09-07 16:28] LABS: ALANINE AMINOTRANSFERASE 23 Units/L (12-78); ALKALINE PHOSPHATASE 103 Units/L (46-116); ASPARTATE AMINO TRANSFERASE 20 Units/L (15-37); BLOOD UREA NITROGEN 26 mg/dL (7-18); CALCIUM 9.7 mg/dL (8.5-10.1); CARBON DIOXIDE 36.9 mmol/L (21-32); CHLORIDE 96 mmol/L (98-107); COR CA(FOR HYPOALB) 10.5 mg/dL (8.5-10.1); CREATININE 1.04 mg/dL (0.70-1.30); SODIUM 136 mmol/L (136-145); TOTAL PROTEIN 7.8 g/dL (6.4-8.2); eGFR BLACK RACES > 60 (>60); eGFR NON BLACK RACES > 60 (>60)
[2017-09-07] MEDS ORDERED: COLACE CAP 100 MG PO PRN ×2 (16:37→18:40)
[2017-09-07] MEDS ORDERED: MILK OF MAGNESIA PO PRN ×2 (16:37→18:40)
[2017-09-07] MEDS: NS 1000 ML 1,000 ML IV SCH (16:43)
[2017-09-07 17:43] VITALS: BMI 18.6
--- NOTE | 2017-09-07 18:08 | RAD ---
May be neoplastic; similar findings were documented on recent chest CT examination. Examination: Port able AP chest History: Lung cancer, CHF Comparison reference 08/31/2017 Findings: Continued normal heart size with stable position of pacemaker. Diffuse interstitial process may be related to fibrosis, although metastatic process cannot be excluded. There is a noncalcified nodule 1.5 cm in diameter at the level of the right diaphragm. Impression: Right basal nodule. A mass in the right lung was documented on recent chest CT examinatio n. There is no other significant change in appearance of harder lungs since 08/31/2017. Reported By:
[2017-09-07] MEDS ORDERED: XANAX PO PRN (18:40)
[2017-09-07] MEDS ORDERED: LASIX PO PRN (18:40)
[2017-09-07] MEDS ORDERED: DUONEB 0.5 MG/3 MG NEB PRN (18:40)
[2017-09-07] MEDS ORDERED: Atrovent NEB TX 0.02% IN SCH (19:00)
[2017-09-07] MEDS ORDERED: PERCOCET TAB 5/325 MG PO PRN (19:03)
[2017-09-07 20:11] LABS: APPEARANCE,URINE HAZY (CLEAR); BILIRUBIN,URINE NEGATIVE (NEGATIVE); BLOOD/HEMOGLOBIN,URINE NEGATIVE (NEGATIVE); COLOR,URINE DARK YELLOW (YELLOW); GLUCOSE, URINE NEGATIVE (NEGATIVE); KETONES,URINE NEGATIVE (NEGATIVE); NITRITES,URINE NEGATIVE (NEGATIVE); PROTEIN,URINE NEGATIVE (NEGATIVE)
[2017-09-07 20:12] LABS: AMORPHOUS SEDIMENT,UR 1+ /HPF (NEGATIVE); BACTERIA,URINE 1+ /HPF (NEGATIVE); LEUKOCYTE ESTERASE ,URINE NEGATIVE (NEGATIVE); RBC,URINE NONE SEEN /HPF (NEGATIVE); SQUAMOUS EPITHELIAL CELL,UR NEGATIVE /HPF (NEGATIVE); UROBILINOGEN,URINE NORMAL (NORMAL)
[2017-09-07] MEDS: Atrovent NEB TX 0.02% IN SCH (20:14)
[2017-09-07] MEDS: COREG TAB 6.25 MG PO SCH (22:07)
[2017-09-07] MEDS: PERIACTIN TAB 4 MG PO SCH (22:07)
[2017-09-07] MEDS: ZANTAC PO SCH (22:07)
[2017-09-07] MEDS: K-DUR TAB 20 MEQ PO SCH (22:08)
[2017-09-07] MEDS: PRAVACHOL PO SCH (22:08)
[2017-09-07] MEDS: COUMADIN TAB 5 MG PO SCH (22:21)
[2017-09-07] MEDS: ALDACTONE TAB 25 MG PO SCH (22:22)
[2017-09-08] MEDS: NS 1000 ML 1,000 ML IV SCH ×3 (00:38→21:00)
[2017-09-08] MEDS: Atrovent NEB TX 0.02% IN SCH ×3 (05:15→20:44)
[2017-09-08] MEDS: PERIACTIN TAB 4 MG PO SCH (05:42)
[2017-09-08 05:51] LABS: ALANINE AMINOTRANSFERASE 20 Units/L (12-78); ALBUMIN 2.5 g/dL (3.4-5.0); ALKALINE PHOSPHATASE 89 Units/L (46-116); ASPARTATE AMINO TRANSFERASE 20 Units/L (15-37); BLOOD UREA NITROGEN 19 mg/dL (7-18); CALCIUM 8.5 mg/dL (8.5-10.1); CARBON DIOXIDE 35.3 mmol/L (21-32); CHLORIDE 101 mmol/L (98-107); COR CA(FOR HYPOALB) 9.7 mg/dL (8.5-10.1); CREATININE 0.91 mg/dL (0.70-1.30); SODIUM 138 mmol/L (136-145); TOTAL PROTEIN 6.8 g/dL (6.4-8.2); eGFR BLACK RACES > 60 (>60); eGFR NON BLACK RACES > 60 (>60)
[2017-09-08 05:59] LABS: BASOPHILS # (AUTO) 0.1 X10^3/uL (0.0-0.1); BASOPHILS % (AUTO) 0.9 % (0.2-1.0); EOSINOPHILS # (AUTO) 0.3 x10^3/uL (0.0-0.2); EOSINOPHILS % (AUTO) 5.8 % (0.9-2.9); HEMATOCRIT 33.3 % (42.0-54.0); LYMPHOCYTES # (AUTO) 0.7 X10^3/uL (1.3-2.9); LYMPHOCYTES % (AUTO) 11.8 % (21.0-51.0); MEAN CORPUSCULAR HEMOGLOBIN 26.4 pg (27.0-34.0); MEAN PLATELET VOLUME 9.4 fL (7.4-11.0); MONOCYTES # (AUTO) 0.7 x10^3/uL (0.3-0.8); MONOCYTES % (AUTO) 11.5 % (0.0-13.0); NEUTROPHILS # (AUTO) 4.1 x10^3/uL (2.2-4.8); PLATELET COUNT 193 X10^3/uL (150.0-450.0); RED BLOOD COUNT 4.17 X10^6/uL (4.7-6.0); RED CELL DISTRIBUTION WIDTH 17.6 % (11.6-16.5); WHITE BLOOD COUNT 5.9 X10^3/uL (3.6-10.0)
[2017-09-08] MEDS ORDERED: LEXAPRO ONE (08:27)
[2017-09-08] MEDS ORDERED: ERLOTINIB HCL 150 MG PO SCH (09:00)
[2017-09-08] MEDS: ALDACTONE TAB 25 MG PO SCH ×2 (09:08→20:50)
[2017-09-08] MEDS: ZANTAC PO SCH ×2 (09:09→20:50)
[2017-09-08] MEDS: LANOXIN PO SCH (09:09)
[2017-09-08] MEDS: COLACE CAP 100 MG PO SCH (09:09)
[2017-09-08] MEDS: LEXAPRO PO SCH (09:09)
[2017-09-08] MEDS: COREG TAB 6.25 MG PO SCH ×3 (09:09→22:45)
[2017-09-08] MEDS: K-DUR TAB 20 MEQ PO SCH ×2 (09:11→20:50)
[2017-09-08] MEDS ORDERED: PHARMACY CONSULT - TPN XX SCH (10:00)
--- NOTE | 2017-09-08 11:25 | DR.H&P ---
H&P - History & Physical for Day of: H&P Date: 09/07/17 - Chief Complaint Chief Complaint: GENERALIZED WEAKNESS - Allergies Allergies/Adverse Reactions: Allergies Allergy/AdvReac Type Severity Reaction Status Date / Time No Known Drug Allergies Allergy Verified 04/27/17 14:15 - History of Present Illness History of Present Illness: is a 72 year old patient of ours who presented is a direct admission from our office with complaints of generalized weakness and shaking. Patient also reports a decrease in appetite and oral intake. Patient reports I feel like there is a band around my abdomen when I eat. Patient reports that he has been drinking Ensure, with no improvement in symptoms. He reports a weight loss of 8 pounds in the past month. Patient has a medical history of hard, of hearing, CHF, hyperlipidemia, hypertension, bronchitis, pneumonia, constipation, muscle weakness, lung cancer with mets to the bone, depression, stent in left leg due to PAD. On examination, patient appears to me malnourished. Heart is normal in rate and rhythm. Lungs are noted with rales bilaterally to auscultation. Abdomen is noted with distention. He reports diffuse tenderness. Decreased bowel sounds are noted in all quadrants. Patient reports that last bowel movement was 09/04/17. We admitted patient to the hospital for further treatment and evaluation of generalized weakness. On arrival to the hospital, vital signs were 98.3, 99, 24, 92%NC 2LPM , 114/72. We obtained labs and a chest xray. Abnormal lab values include the following: Hgb 12.5, Hct 37.7, MCV 79.9, MCH 26.5, RDW 18.0, Neut% 75.1, Lymph% 10.9, Eos% 3.7, Neut# 4.9, Lymph# 0.7, INR 2.81, Chloride 96, Carbon Dioxide 36.9, BUN 26, Glucose 109, Corrected Calcium 10.5, Albumin 3.0, Globulin 4.8, A/ G Ratio 0.6. Urinalysis reports: Color Dark yellow, Chas Hazy, Amorph Sed 1+, Bacteria 1+. Chest xray reports: Right basal nodule. A mass in the right lung was documented on recent chest CT examination. There is no other significant change in appearance of harder lungs since 08/31/17. Patient was started on normal saline at 125ml/hr. We will restart home medications. We plan to follow up with AM labs and continue to monitor patient. - Past Medical History Past Medical History: CHF, COPD, Coronary Artery Disease, Depression, Dyslipidemia, Hypertension Additional Medical History: LUNG CANCER - Past Surgical History Surgical History: Other Additional Surgical History: PACEMAKER, DEFIBRILLATOR, LEFT LEG STENT, - Family History Family Medical History: [place] - Social History Does patient currently use any type of tobacco product: Yes Have you used tobacco products in the last 12 months: Yes Type of Tobacco Use: Cigarettes How many years tobacco product used: 50 Does any household member use tobacco: No Alcohol Use: Occasionally Drug Use: Prescription Drugs - Medications Home Medications: Dronabinol [Marinol] 2.5 mg PO BID 09/08/17 [History Confirmed 09/08/17] Fentanyl 50 Mcg/Hr [DURAGESIC 50 mcg/HR PATCH] 1 each TD Q72H 09/08/17 [History Confirmed 09/08/17] - Review of Systems Constitutional: See HPI, Weakness Eyes: No Symptoms Reported. denies: See HPI, Pain, Vision Change, Conjunctivae Inflammation, Eyelid Inflammation, Redness, Other ENT: No Symptoms Reported. denies: See HPI, Ear Pain, Ear Discharge, Nose Pain , Nose Discharge, Nose Congestion, Mouth Pain, Mouth Swelling, Throat Pain, Throat Swelling, Other Respiratory: Shortness of Breath, SOB with Excertion, Other. denies: Hemoptysis , Pleuritic Pain, Sputum, Wheezing Cardiovascular: No Symptoms Reported. denies: Chest Pain, See HPI, Palpitations , Orthopnea, Paroxysmal Noc. Dyspnea, Edema, Light Headedness, Other Gastrointestinal: Abdominal Pain. denies: Melena, Hematochezia Genitourinary: No Symptoms Reported. denies: See HPI, Dysuria, Frequency, Incontinence, Hematuria, Retention, Other Musculoskeletal: Back Pain Skin: No Symptoms Reported. denies: See HPI, Rash, Lesions, Jaundice, Bruising , Wound, Ecchymosis, Other Neurological: Weakness - Physical Exam Vital Signs: Temperature 98.1 F Pulse Rate [Right Brachial] 76 Pulse Rate 80 Respiratory Rate 20 Blood Pressure [Right Arm] 117/67 Blood Pressure [Left Arm] 128/71 Blood Pressure 114/71 O2 Sat by Pulse Oximetry 94 Oriented: Normal Eyes: Normal. negative: Blurred Vision, Diplopia, Discharge, Pain, Redness, Photophobia, Other Ear: Normal. negative: Right, Left, Swelling, Ecchymosis, Hemotypanum, Abrasion , Laceration Nose: Normal. negative: Injected, Discharge, Blood, Other Throat: Normal. negative: Tonsillar Hypertrophy, Red, Exudate, Dry, Other Respiratory: Rales Throughout Cardiovascular: Normal. negative: Tachycardia, Bradycardia, Irregular, S3, S4, Systolic, Diastolic, Murmur, Edema, Other : Normal. negative: Dysuria, Hematuria, Frequency, Discharge, Testicular Pain , Bleeding, , Other Auscultation: Bowel Sounds: Normal. negative: Bruit, Absent, Increased, Decreased, High Pitched, Other Palpation: Normal. negative: Spleen Enlarged, Liver Enlarged, Mass Pulsatile, Other Tenderness: Diffuse. negative: Rebound, Guarding, Rigidity Skin: Normal Musculoskeletal: Back:Lumbar, Tender Psychiatric: Normal Mood Description: Calm Affect: Normal Speech Pattern: Clear - Assessment/Plan (1) Generalized weakness Status: Acute Plan: NORMAL SALINE AT 125ML/HR, TPN, ALBUMIN, CONTINUE TO MONITOR
[2017-09-08] MEDS: PROCALAMINE 3 % 1,000 ML IV SCH (12:18)
[2017-09-08] MEDS: ALBUMIN HUMAN 25%- 100ML 100 ML IV SCH (12:18)
[2017-09-08] MEDS: MINERALS PO SCH (12:27)
[2017-09-08] MEDS: LUTEIN PO SCH (12:27)
[2017-09-08] MEDS: VITS A C E PO SCH (12:27)
[2017-09-08] MEDS: UBIDECARENONE 200 MG PO SCH (12:28)
[2017-09-08] MEDS: RAMIPRIL 1.25 MG PO SCH (12:28)
[2017-09-08] MEDS: PATIENT'S HOME MEDICATION (Multivit-Min/Fa/Lycopen/Lutein [Centrum Silver Tablet] 1 TAB) PO SCH (12:28)
--- NOTE | 2017-09-08 13:29 | PCM.PROG ---
Progress Note - Progress Note for Day of Date: 09/08/17 - Subjective Subjective: WAS ADMITTED FOR GENERALIZED WEAKNESS. TODAY, HE IS ALERT AND ORIENTED, LYING IN BED ON MORNING ROUNDS. PATIENTS SPOUSE AND DAUGHTER ARE AT BEDSIDE. HE CONTINUES WITH COMPLAINTS OF WEAKNESS AND DECREASED APPETITE. ON EXAMINATION, HEART IS NORMAL IN RATE AND RHYTHM. SKIN TUGOR IS DECREASED. HE IS NOTED TO BE UTILIZING OXYGEN VIA NASAL CANNULA AT 2L/MIN AT THIS TIME. LUNGS ARE NOTED WITH RALES BILATERALLY TO AUSCULTATION. ABDOMEN CONTINUES WITH DISTENTION AND DIFFUSE TENDERNESS. NORMAL BOWEL SOUNDS NOTED IN ALL QUADRANTS. HIS VITAL SIGNS THIS MORNING ARE 97.7-78-18-94%-132/62. ABNORMAL LAB VALUES INCLUDE THE FOLLOWING: RBC 4.17. HGB 11.0, HCT 33.3, INR 2.89, CARBON DIOXIDE 35.3, BUN 19, ALBUMIN 2.5. PATIENT HAS A HISTORY OF LUNG CANCER AND IS SCHEDULED FOR A REPEAT PET SCAN NEXT WEEK, THEREFORE, WE WILL CANCEL THE CT THAT WAS ORDERED FOR TODAY. TODAY, WE PLAN TO START PERIPHERAL TPN, LIPIDS, AND ALBUMIN 25% IV DAILY. WE WILL RESUME HOME MEDICATIONS. OTHERWISE, WE WILL CONTINUE WITH CURRENT PLAN OF CARE. WE PLAN TO FOLLOW UP WITH AM LABS AND CONTINUE TO MONITOR PATIENT. - Past Medical Family Social History Past Med/Fam/Surg Hx: No changes since H&P Allergies: Allergies No Known Drug Allergies Allergy (Verified 04/27/17 14:15) - Review of Systems ROS: No change since H&P - Vital Signs and I&O's Vital Signs: Temperature 98.1 F Pulse Rate [Right Brachial] 76 Pulse Rate 80 Respiratory Rate 20 Blood Pressure [Right Arm] 117/67 Blood Pressure [Left Arm] 128/71 Blood Pressure 114/71 O2 Sat by Pulse Oximetry 94 Intake and Output: Intake & Output 09/06/17 09/07/17 09/08/17 09/09/17 11:59 11:59 11:59 11:59 Intake Total 1530 Output Total 100 Balance 1430 - Physical Exam Oriented: Normal Eyes: Normal. negative: Blurred Vision, Diplopia, Discharge, Pain, Redness, Photophobia, Other Ear: Normal. negative: Right, Left, Swelling, Ecchymosis, Hemotypanum, Abrasion , Laceration Nose: Normal. negative: Injected, Discharge, Blood, Other Throat: Normal. negative: Tonsillar Hypertrophy, Red, Exudate, Dry, Other Respiratory: Normal Cardiovascular: Normal. negative: Tachycardia, Bradycardia, Irregular, S3, S4, Systolic, Diastolic, Murmur, Edema, Other : Normal. negative: Dysuria, Hematuria, Frequency, Discharge, Testicular Pain , Bleeding, , Other Auscultation: Bowel Sounds: Normal. negative: Bruit, Absent, Increased, Decreased, High Pitched, Other Palpation: Normal Tenderness: Diffuse. negative: Rebound, Guarding, Rigidity Skin: Normal Musculoskeletal: Back:Lumbar, Tender Psychiatric: Normal Mood Description: Calm Affect: Normal Speech Pattern: Clear - Laboratory and Diagnostics Result Diagrams: 09/08/17 03:50 09/08/17 03:50 Labs: Laboratory WBC 5.9 X10^3/uL (3.6-10.0) 09/08/17 03:50 RBC 4.17 X10^6/uL (4.7-6.0) L 09/08/17 03:50 Hgb 11.0 g/dL (13.5-18.0) L 09/08/17 03:50 Hct 33.3 % (42.0-54.0) L 09/08/17 03:50 MCV 80.0 fL (80.0-100.0) 09/08/17 03:50 MCH 26.4 pg (27.0-34.0) L 09/08/17 03:50 MCHC 33.0 g/dL (33.0-35.0) 09/08/17 03:50 RDW 17.6 % (11.6-16.5) H 09/08/17 03:50 Plt Count 193 X10^3/uL (150.0-450.0) 09/08/17 03:50 MPV 9.4 fL (7.4-11.0) 09/08/17 03:50 Neut % 70.0 % (42.0-75.0) 09/08/17 03:50 Lymph % 11.8 % (21.0-51.0) L 09/08/17 03:50 [place] % 11.5 % (0.0-13.0) 09/08/17 03:50 Eos % 5.8 % (0.9-2.9) H 09/08/17 03:50 Baso % 0.9 % (0.2-1.0) 09/08/17 03:50 Neut # 4.1 x10^3/uL (2.2-4.8) 09/08/17 03:50 Lymph # 0.7 X10^3/uL (1.3-2.9) L 09/08/17 03:50 [place] # 0.7 x10^3/uL (0.3-0.8) 09/08/17 03:50 Eos # 0.3 x10^3/uL (0.0-0.2) H 09/08/17 03:50 Baso # 0.1 X10^3/uL (0.0-0.1) 09/08/17 03:50 Absolute Nucleated RBC 0.0 /100WBC 09/08/17 03:50 INR Target Range - 09/08/17 03:50 INR 2.89 (0.8-1.3) H 09/08/17 03:50 Sodium 138 mmol/L (136-145) 09/08/17 03:50 Corrected Sodium TNP 09/08/17 03:50 Potassium 4.0 mmol/L (3.5-5.1) 09/08/17 03:50 Chloride 101 mmol/L (98-107) 09/08/17 03:50 Carbon Dioxide 35.3 mmol/L (21-32) H 09/08/17 03:50 BUN 19 mg/dL (7-18) H 09/08/17 03:50 Creatinine 0.91 mg/dL (0.70-1.30) 09/08/17 03:50 Est GFR (MDRD) Af Amer > 60 (>60) 09/08/17 03:50 Est GFR (MDRD) Non-Af > 60 (>60) 09/08/17 03:50 Glucose 82 mg/dL (65-99) 09/08/17 03:50 Calcium 8.5 mg/dL (8.5-10.1) 09/08/17 03:50 Corrected Calcium 9.7 mg/dL (8.5-10.1) 09/08/17 03:50 Total Bilirubin 0.40 mg/dL (0.2-1.0) 09/08/17 03:50 AST 20 Units/L (15-37) 09/08/17 03:50 ALT 20 Units/L (12-78) 09/08/17 03:50 Alkaline Phosphatase 89 Units/L (46-116) 09/08/17 03:50 Total Protein 6.8 g/dL (6.4-8.2) 09/08/17 03:50 Albumin 2.5 g/dL (3.4-5.0) L 09/08/17 03:50 Globulin 4.3 g/dL (2.5-4.5) 09/08/17 03:50 Albumin/Globulin Ratio 0.6 Ratio (1.1-2.1) L 09/08/17 03:50 Specimen Type Random urine 09/07/17 19:01 Urine Color Dark yellow (YELLOW) 09/07/17 19:01 Urine Appearance Hazy (CLEAR) 09/07/17 19:01 Urine pH 7.0 (5.0 - 8.0) 09/07/17 19:01 Ur Specific [place] 1.010 (1.000-1.030) 09/07/17 19:01 Urine Protein Negative (NEGATIVE) 09/07/17 19:01 Urine Glucose (UA) Negative (NEGATIVE) 09/07/17 19:01 Urine Ketones Negative (NEGATIVE) 09/07/17 19:01 Urine Occult Blood Negative (NEGATIVE) 09/07/17 19:01 Urine Nitrite Negative (NEGATIVE) 09/07/17 19:01 Urine Bilirubin Negative (NEGATIVE) 09/07/17 19:01 Urine Urobilinogen Normal (NORMAL) 09/07/17 19:01 Ur Leukocyte Esterase Negative (NEGATIVE) 09/07/17 19:01 Urine RBC None seen /HPF (NEGATIVE) 09/07/17 19:01 Urine WBC None seen /HPF (NEGATIVE) 09/07/17 19:01 Ur Squamous Epith Cells Negative /HPF (NEGATIVE) 09/07/17 19:01 Amorphous Sediment 1+ /HPF (NEGATIVE) 09/07/17 19:01 Urine Bacteria 1+ /HPF (NEGATIVE) 09/07/17 19:01 Ur Culture Indicated? No/not indicated 09/07/17 19:01 - Plan (1) Generalized weakness Status: Acute Plan: NORMAL SALINE AT 125ML/HR, TPN, ALBUMIN, CONTINUE TO MONITOR (2) Hypoalbuminemia Status: Acute Plan: ALBUMIN 25% IV DAILY, PERIPHERAL TPN, LIPIDS, CONTINUE TO MONITOR
[2017-09-08] MEDS: DRONABINOL 2.5 MG PO SCH ×2 (17:50→20:59)
[2017-09-08] MEDS: COUMADIN TAB 5 MG PO SCH (20:53)
[2017-09-08] MEDS: PRAVACHOL PO SCH (20:55)
[2017-09-08] MEDS: LIPOSYN III 20% 100ML 100 ML IV SCH (20:57)
[2017-09-09] MEDS: Atrovent NEB TX 0.02% IN SCH ×2 (04:41→05:00)
[2017-09-09 05:45] LABS: BASOPHILS % (AUTO) 0.7 % (0.2-1.0); EOSINOPHILS # (AUTO) 0.3 x10^3/uL (0.0-0.2); EOSINOPHILS % (AUTO) 6.1 % (0.9-2.9); LYMPHOCYTES # (AUTO) 0.9 X10^3/uL (1.3-2.9); LYMPHOCYTES % (AUTO) 15.6 % (21.0-51.0); MEAN CORPUSCULAR HGB CONC 33.3 g/dL (33.0-35.0); MEAN PLATELET VOLUME 9.8 fL (7.4-11.0); MONOCYTES # (AUTO) 0.6 x10^3/uL (0.3-0.8); MONOCYTES % (AUTO) 11.6 % (0.0-13.0); NEUTROPHILS # (AUTO) 3.6 x10^3/uL (2.2-4.8); PLATELET COUNT 160 X10^3/uL (150.0-450.0); RED BLOOD COUNT 3.33 X10^6/uL (4.7-6.0); RED CELL DISTRIBUTION WIDTH 17.3 % (11.6-16.5); WHITE BLOOD COUNT 5.5 X10^3/uL (3.6-10.0)
[2017-09-09 05:46] LABS: ALANINE AMINOTRANSFERASE 21 Units/L (12-78); ALBUMIN 2.5 g/dL (3.4-5.0); ALKALINE PHOSPHATASE 70 Units/L (46-116); ASPARTATE AMINO TRANSFERASE 18 Units/L (15-37); BLOOD UREA NITROGEN 18 mg/dL (7-18); CARBON DIOXIDE 30.5 mmol/L (21-32); CHLORIDE 102 mmol/L (98-107); COR CA(FOR HYPOALB) 9.2 mg/dL (8.5-10.1); CREATININE 0.88 mg/dL (0.70-1.30); SODIUM 137 mmol/L (136-145); eGFR BLACK RACES > 60 (>60); eGFR NON BLACK RACES > 60 (>60)
[2017-09-09] MEDS: NS 1000 ML 1,000 ML IV SCH (06:04)
[2017-09-09] MEDS ORDERED: LEXAPRO ONE (08:20)
[2017-09-09] MEDS: ALBUMIN HUMAN 25%- 100ML 100 ML IV SCH (08:50)
[2017-09-09] MEDS: ALDACTONE TAB 25 MG PO SCH ×2 (08:52→20:25)
[2017-09-09] MEDS: LEXAPRO PO SCH (08:52)
[2017-09-09] MEDS: COLACE CAP 100 MG PO SCH (08:52)
[2017-09-09] MEDS: K-DUR TAB 20 MEQ PO SCH ×2 (08:53→20:25)
[2017-09-09] MEDS: LANOXIN PO SCH (08:53)
[2017-09-09] MEDS: COREG TAB 6.25 MG PO SCH ×3 (08:53→20:25)
[2017-09-09] MEDS: ZANTAC PO SCH ×2 (08:53→20:25)
[2017-09-09] MEDS: MINERALS PO SCH (08:58)
[2017-09-09] MEDS: VITS A C E PO SCH (08:58)
[2017-09-09] MEDS: RAMIPRIL 1.25 MG PO SCH (08:58)
[2017-09-09] MEDS: LUTEIN PO SCH (08:58)
[2017-09-09] MEDS: PATIENT'S HOME MEDICATION (Multivit-Min/Fa/Lycopen/Lutein [Centrum Silver Tablet] 1 TAB) PO SCH (08:58)
[2017-09-09] MEDS: DRONABINOL 2.5 MG PO SCH ×2 (08:59→20:26)
[2017-09-09] MEDS: UBIDECARENONE 200 MG PO SCH (09:04)
[2017-09-09] MEDS: DUONEB 0.5 MG/3 MG NEB SCH ×4 (09:37→20:41)
[2017-09-09] MEDS: DECADRON JET NEB (RESP USE) NEB SCH ×2 (09:38→20:41)
[2017-09-09] MEDS: PROCALAMINE 3 % 1,000 ML IV SCH (10:00)
[2017-09-09] MEDS: FLAGYL IV PREMIX 500 MG BAG 500 MG/100 ML BAG IV SCH ×2 (11:48→20:25)
--- NOTE | 2017-09-09 13:24 | PCM.PROG ---
Progress Note - Progress Note for Day of Date: 09/09/17 - Subjective Subjective: WAS ADMITTED FOR GENERALIZED WEAKNESS. TODAY, HE IS ALERT AND ORIENTED, LYING IN BED ON MORNING ROUNDS. PATIENTS SPOUSE AND DAUGHTER ARE AT BEDSIDE. HE CONTINUES WITH COMPLAINTS OF WEAKNESS AND DECREASED APPETITE, BUT REPORTS THAT SYMPTOMS HAVE SLIGHTLY IMPROVED SINCE YESTERDAY. ON EXAMINATION , HEART IS NORMAL IN RATE AND RHYTHM. HE IS NOTED TO BE UTILIZING OXYGEN VIA NASAL CANNULA AT 2L/MIN AT THIS TIME. LUNGS CONTINUE WITH RALES BILATERALLY TO AUSCULTATION. ABDOMEN CONTINUES WITH DISTENTION AND DIFFUSE TENDERNESS. DISTENTION APPEARS TO HAVE DECREASED SINCE YESTERDAY. NORMAL BOWEL SOUNDS NOTED IN ALL QUADRANTS. HIS VITAL SIGNS THIS MORNING ARE 97.9-65-20-96%-112/56. ABNORMAL LAB VALUES INCLUDE THE FOLLOWING: RBC 3.33. HGB 9.0, HCT 27.0, INR 3.35 , CALCIUM 8.0, TOTAL PROTEIN 6.0, ALBUMIN 2.5. SPUTUM CULTURE FROM A VISIT ON REPORTS MODERATE GROWTH OF YEAST. WE WILL RECULTURE SPUTUM TODAY AND START FLAGYL 500MG IV TID. OTHERWISE, WE WILL CONTINUE WITH CURRENT PLAN OF CARE. WE PLAN TO FOLLOW UP WITH AM LABS AND CONTINUE TO MONITOR PATIENT. - Past Medical Family Social History Past Med/Fam/Surg Hx: No changes since H&P Allergies: Allergies No Known Drug Allergies Allergy (Verified 04/27/17 14:15) - Review of Systems ROS: No change since H&P - Vital Signs and I&O's Vital Signs: Temperature 97.5 F Pulse Rate [Right Brachial] 72 Pulse Rate 62 Respiratory Rate 18 Blood Pressure [Right Arm] 102/58 Blood Pressure [Left Arm] 128/71 Blood Pressure 114/71 O2 Sat by Pulse Oximetry 91 Intake and Output: Intake & Output 09/07/17 09/08/17 09/09/17 09/10/17 11:59 11:59 11:59 11:59 Intake Total 1530 2385 Output Total 100 300 Balance 1430 2085 - Physical Exam Oriented: Normal Eyes: Normal. negative: Blurred Vision, Diplopia, Discharge, Pain, Redness, Photophobia, Other Ear: Normal. negative: Right, Left, Swelling, Ecchymosis, Hemotypanum, Abrasion , Laceration Nose: Normal. negative: Injected, Discharge, Blood, Other Throat: Normal. negative: Tonsillar Hypertrophy, Red, Exudate, Dry, Other Respiratory: Normal Cardiovascular: Normal. negative: Tachycardia, Bradycardia, Irregular, S3, S4, Systolic, Diastolic, Murmur, Edema, Other : Normal. negative: Dysuria, Hematuria, Frequency, Discharge, Testicular Pain , Bleeding, , Other Auscultation: Bowel Sounds: Normal. negative: Bruit, Absent, Increased, Decreased, High Pitched, Other Palpation: Normal Tenderness: Diffuse. negative: Rebound, Guarding, Rigidity Skin: Normal Musculoskeletal: Back:Lumbar, Tender Psychiatric: Normal Mood Description: Calm Affect: Normal Speech Pattern: Clear - Laboratory and Diagnostics Result Diagrams: 09/09/17 03:40 09/09/17 03:40 Labs: Laboratory WBC 5.5 X10^3/uL (3.6-10.0) 09/09/17 03:40 RBC 3.33 X10^6/uL (4.7-6.0) L 09/09/17 03:40 Hgb 9.0 g/dL (13.5-18.0) L D 09/09/17 03:40 Hct 27.0 % (42.0-54.0) L 09/09/17 03:40 MCV 81.0 fL (80.0-100.0) 09/09/17 03:40 MCH 27.0 pg (27.0-34.0) 09/09/17 03:40 MCHC 33.3 g/dL (33.0-35.0) 09/09/17 03:40 RDW 17.3 % (11.6-16.5) H 09/09/17 03:40 Plt Count 160 X10^3/uL (150.0-450.0) 09/09/17 03:40 MPV 9.8 fL (7.4-11.0) 09/09/17 03:40 Neut % 66.0 % (42.0-75.0) 09/09/17 03:40 Lymph % 15.6 % (21.0-51.0) L 09/09/17 03:40 [place] % 11.6 % (0.0-13.0) 09/09/17 03:40 Eos % 6.1 % (0.9-2.9) H 09/09/17 03:40 Baso % 0.7 % (0.2-1.0) 09/09/17 03:40 Neut # 3.6 x10^3/uL (2.2-4.8) 09/09/17 03:40 Lymph # 0.9 X10^3/uL (1.3-2.9) L 09/09/17 03:40 [place] # 0.6 x10^3/uL (0.3-0.8) 09/09/17 03:40 Eos # 0.3 x10^3/uL (0.0-0.2) H 09/09/17 03:40 Baso # 0.0 X10^3/uL (0.0-0.1) 09/09/17 03:40 Absolute Nucleated RBC 0.0 /100WBC 09/09/17 03:40 INR Target Range - 09/09/17 03:40 INR 3.35 (0.8-1.3) H 09/09/17 03:40 Sodium 137 mmol/L (136-145) 09/09/17 03:40 Corrected Sodium TNP 09/09/17 03:40 Potassium 4.3 mmol/L (3.5-5.1) 09/09/17 03:40 Chloride 102 mmol/L (98-107) 09/09/17 03:40 Carbon Dioxide 30.5 mmol/L (21-32) 09/09/17 03:40 BUN 18 mg/dL (7-18) 09/09/17 03:40 Creatinine 0.88 mg/dL (0.70-1.30) 09/09/17 03:40 Est GFR (MDRD) Af Amer > 60 (>60) 09/09/17 03:40 Est GFR (MDRD) Non-Af > 60 (>60) 09/09/17 03:40 Glucose 77 mg/dL (65-99) 09/09/17 03:40 Calcium 8.0 mg/dL (8.5-10.1) L 09/09/17 03:40 Corrected Calcium 9.2 mg/dL (8.5-10.1) 09/09/17 03:40 Total Bilirubin 0.30 mg/dL (0.2-1.0) 09/09/17 03:40 AST 18 Units/L (15-37) 09/09/17 03:40 ALT 21 Units/L (12-78) 09/09/17 03:40 Alkaline Phosphatase 70 Units/L (46-116) 09/09/17 03:40 Total Protein 6.0 g/dL (6.4-8.2) L 09/09/17 03:40 Albumin 2.5 g/dL (3.4-5.0) L 09/09/17 03:40 Globulin 3.5 g/dL (2.5-4.5) 09/09/17 03:40 Albumin/Globulin Ratio 0.7 Ratio (1.1-2.1) L 09/09/17 03:40 Specimen Type Random urine 09/07/17 19:01 Urine Color Dark yellow (YELLOW) 09/07/17 19:01 Urine Appearance Hazy (CLEAR) 09/07/17 19:01 Urine pH 7.0 (5.0 - 8.0) 09/07/17 19:01 Ur Specific [place] 1.010 (1.000-1.030) 09/07/17 19:01 Urine Protein Negative (NEGATIVE) 09/07/17 19:01 Urine Glucose (UA) Negative (NEGATIVE) 09/07/17 19:01 Urine Ketones Negative (NEGATIVE) 09/07/17 19:01 Urine Occult Blood Negative (NEGATIVE) 09/07/17 19:01 Urine Nitrite Negative (NEGATIVE) 09/07/17 19:01 Urine Bilirubin Negative (NEGATIVE) 09/07/17 19:01 Urine Urobilinogen Normal (NORMAL) 09/07/17 19:01 Ur Leukocyte Esterase Negative (NEGATIVE) 09/07/17 19:01 Urine RBC None seen /HPF (NEGATIVE) 09/07/17 19:01 Urine WBC None seen /HPF (NEGATIVE) 09/07/17 19:01 Ur Squamous Epith Cells Negative /HPF (NEGATIVE) 09/07/17 19:01 Amorphous Sediment 1+ /HPF (NEGATIVE) 09/07/17 19:01 Urine Bacteria 1+ /HPF (NEGATIVE) 09/07/17 19:01 Ur Culture Indicated? No/not indicated 09/07/17 19:01 - Plan (1) Generalized weakness Status: Acute Plan: NORMAL SALINE AT 125ML/HR, TPN, ALBUMIN, CONTINUE TO MONITOR (2) Hypoalbuminemia Status: Acute Plan: ALBUMIN 25% IV DAILY, PERIPHERAL TPN, LIPIDS, CONTINUE TO MONITOR (3) Yeast cells and fungal elements present on diagnostic testing Status: Acute Plan: FLAGYL 500MG IV TID, CONTINUE TO MONITOR (4) Lung cancer Status: Acute Qualifiers: Laterality: right Lung location: unspecified part of lung Qualified Code( s): C34.91 - Malignant neoplasm of unspecified part of right bronchus or lung Plan: CONTINUE TARCEVA, CONTINUE TO MONITOR (5) Malnourished Status: Acute Qualifiers: Malnutrition type: protein-calorie malnutrition Protein-calorie malnutrition severity: mild Qualified Code(s): E44.1 - Mild protein-calorie malnutrition Plan: ALBUMIN 25% IV DAILY, PERIPHERAL TPN, LIPIDS, CONTINUE MARIN[place], CONTINUE TO MONITOR
[2017-09-09] MEDS ORDERED: LANTISEPTIC TOP PRN (14:53)
[2017-09-09] MEDS ORDERED: PATIENT'S HOME MEDICATION PO SCH (16:00)
[2017-09-09] MEDS ORDERED: SALINE 3% 15 ML NEB TX ONE (17:54)
[2017-09-09] MEDS ORDERED: SALINE 3% 15 ML NEB TX NEB ONE (17:55)
[2017-09-09] MEDS: PRAVACHOL PO SCH (20:22)
[2017-09-09] MEDS: LIPOSYN III 20% 100ML 100 ML IV SCH (22:30)
[2017-09-10] MEDS: DUONEB 0.5 MG/3 MG NEB SCH ×4 (01:02→12:09)
[2017-09-10] MEDS: FLAGYL IV PREMIX 500 MG BAG 500 MG/100 ML BAG IV SCH ×2 (02:05→12:00)
[2017-09-10 04:42] LABS: BASOPHILS % (AUTO) 0.5 % (0.2-1.0); EOSINOPHILS # (AUTO) 0.2 x10^3/uL (0.0-0.2); HEMATOCRIT 32.3 % (42.0-54.0); HEMOGLOBIN 10.6 g/dL (13.5-18.0); LYMPHOCYTES # (AUTO) 0.6 X10^3/uL (1.3-2.9); LYMPHOCYTES % (AUTO) 10.4 % (21.0-51.0); MEAN CORPUSCULAR HEMOGLOBIN 26.5 pg (27.0-34.0); MEAN CORPUSCULAR HGB CONC 32.8 g/dL (33.0-35.0); MEAN CORPUSCULAR VOLUME 80.8 fL (80.0-100.0); MEAN PLATELET VOLUME 9.6 fL (7.4-11.0); MONOCYTES # (AUTO) 0.5 x10^3/uL (0.3-0.8); MONOCYTES % (AUTO) 9.2 % (0.0-13.0); NEUTROPHILS # (AUTO) 4.5 x10^3/uL (2.2-4.8); NEUTROPHILS % (AUTO) 76.9 % (42.0-75.0); PLATELET COUNT 171 X10^3/uL (150.0-450.0); RED CELL DISTRIBUTION WIDTH 17.6 % (11.6-16.5); WHITE BLOOD COUNT 5.8 X10^3/uL (3.6-10.0)
[2017-09-10 04:53] LABS: ALANINE AMINOTRANSFERASE 22 Units/L (12-78); ALKALINE PHOSPHATASE 79 Units/L (46-116); ASPARTATE AMINO TRANSFERASE 17 Units/L (15-37); BLOOD UREA NITROGEN 12 mg/dL (7-18); CALCIUM 8.3 mg/dL (8.5-10.1); CARBON DIOXIDE 30.7 mmol/L (21-32); CHLORIDE 102 mmol/L (98-107); COR CA(FOR HYPOALB) 9.1 mg/dL (8.5-10.1); CREATININE 0.77 mg/dL (0.70-1.30); SODIUM 136 mmol/L (136-145); TOTAL PROTEIN 6.7 g/dL (6.4-8.2); eGFR BLACK RACES > 60 (>60); eGFR NON BLACK RACES > 60 (>60)
[2017-09-10] MEDS: NS 1000 ML 1,000 ML IV SCH (06:36)
[2017-09-10] MEDS: DECADRON JET NEB (RESP USE) NEB SCH (08:48)
[2017-09-10] MEDS ORDERED: LEXAPRO ONE (08:57)
[2017-09-10] MEDS: PROCALAMINE 3 % 1,000 ML IV SCH (09:03)
[2017-09-10] MEDS: ALBUMIN HUMAN 25%- 100ML 100 ML IV SCH (09:05)
[2017-09-10] MEDS: LEXAPRO PO SCH (09:06)
[2017-09-10] MEDS: K-DUR TAB 20 MEQ PO SCH (09:06)
[2017-09-10] MEDS: COLACE CAP 100 MG PO SCH (09:06)
[2017-09-10] MEDS: ALDACTONE TAB 25 MG PO SCH (09:06)
[2017-09-10] MEDS: ZANTAC PO SCH (09:06)
[2017-09-10] MEDS: LANOXIN PO SCH (09:06)
[2017-09-10] MEDS: COREG TAB 6.25 MG PO SCH (09:07)
[2017-09-10] MEDS: MINERALS PO SCH (09:09)
[2017-09-10] MEDS: VITS A C E PO SCH (09:09)
[2017-09-10] MEDS: UBIDECARENONE 200 MG PO SCH (09:09)
[2017-09-10] MEDS: PATIENT'S HOME MEDICATION (Multivit-Min/Fa/Lycopen/Lutein [Centrum Silver Tablet] 1 TAB) PO SCH (09:09)
[2017-09-10] MEDS: LUTEIN PO SCH (09:09)
[2017-09-10] MEDS: RAMIPRIL 1.25 MG PO SCH (09:09)
[2017-09-10] MEDS: DRONABINOL 2.5 MG PO SCH (09:14)
[2017-09-10 17:21] VITALS: BP 95/54
== END 2017-09-10 16:45 | disposition home or self-care (01) ==
LOC: MED/SURG 14:34
PROVIDERS: ADMIT Internal Medicine; ATTEND Internal Medicine
DX: R53.1 Weakness (principal); C34.90 Malignant neoplasm of unspecified part of unspecified bronchus or lung; E46 Unspecified protein-calorie malnutrition; E88.09 Other disorders of plasma-protein metabolism, not elsewhere classified; J44.9 Chronic obstructive pulmonary disease, unspecified; I10 Essential (primary) hypertension; I25.10 Atherosclerotic heart disease of native coronary artery without angina pectoris
CPT/HCPCS: 36415; 71010; 80053; 81001; 84132; 85025; 85610; 87070; 87205; 94640; 94760; A4216; A4222; B5200; P9047; S0030; G0378; J7620; J7644

== ENCOUNTER → 2017-10-15 | Outpatient (CLI) | payer BC, OTHER | END | disposition home or self-care (01) | DRG 949 | LOC: LAB 13:14 | PROVIDERS: ATTEND Internal Medicine | DX: Z79.01 Long term (current) use of anticoagulants (principal); C34.2 Malignant neoplasm of middle lobe, bronchus or lung; C79.51 Secondary malignant neoplasm of bone | CPT/HCPCS: 36415; 82310; 85610 ==

== ENCOUNTER → 2017-10-19 | Outpatient (CLI) | payer BC, OTHER ==
[2017-10-19 13:59] LABS: BASOPHILS % (AUTO) 0.7 % (0.2-1.0); EOSINOPHILS # (AUTO) 0.2 x10^3/uL (0.0-0.2); EOSINOPHILS % (AUTO) 2.8 % (0.9-2.9); HEMATOCRIT 32.6 % (42.0-54.0); HEMOGLOBIN 10.9 g/dL (13.5-18.0); LYMPHOCYTES # (AUTO) 0.9 X10^3/uL (1.3-2.9); LYMPHOCYTES % (AUTO) 12.9 % (21.0-51.0); MEAN CORPUSCULAR HGB CONC 33.3 g/dL (33.0-35.0); MEAN CORPUSCULAR VOLUME 80.9 fL (80.0-100.0); MEAN PLATELET VOLUME 8.1 fL (7.4-11.0); MONOCYTES # (AUTO) 0.7 x10^3/uL (0.3-0.8); MONOCYTES % (AUTO) 10.7 % (0.0-13.0); NEUTROPHILS # (AUTO) 4.8 x10^3/uL (2.2-4.8); NEUTROPHILS % (AUTO) 72.9 % (42.0-75.0); PLATELET COUNT 281 X10^3/uL (150.0-450.0); RED BLOOD COUNT 4.03 X10^6/uL (4.7-6.0); RED CELL DISTRIBUTION WIDTH 19.6 % (11.6-16.5); WHITE BLOOD COUNT 6.6 X10^3/uL (3.6-10.0)
[2017-10-19 14:11] LABS: ALANINE AMINOTRANSFERASE 16 Units/L (12-78); ALBUMIN 2.6 g/dL (3.4-5.0); ALKALINE PHOSPHATASE 72 Units/L (46-116); ASPARTATE AMINO TRANSFERASE 17 Units/L (15-37); BLOOD UREA NITROGEN 11 mg/dL (7-18); CALCIUM 8.4 mg/dL (8.5-10.1); CARBON DIOXIDE 32.7 mmol/L (21-32); CHLORIDE 102 mmol/L (98-107); COR CA(FOR HYPOALB) 9.5 mg/dL (8.5-10.1); CREATININE 0.66 mg/dL (0.70-1.30); SODIUM 140 mmol/L (136-145); TOTAL PROTEIN 6.3 g/dL (6.4-8.2); eGFR BLACK RACES > 60 (>60); eGFR NON BLACK RACES > 60 (>60)
== END ==
LOC: LAB 13:37
PROVIDERS: ATTEND Internal Medicine Medical Oncology
DX: C34.2 Malignant neoplasm of middle lobe, bronchus or lung (principal)
CPT/HCPCS: 36415; 80053; 85025

== ENCOUNTER → 2017-11-17 | Outpatient (CLI) | payer BC, OTHER ==
[2017-11-17 09:54] LABS: BASOPHILS % (AUTO) 0.8 % (0.2-1.0); EOSINOPHILS # (AUTO) 0.2 x10^3/uL (0.0-0.2); HEMATOCRIT 34.2 % (42.0-54.0); HEMOGLOBIN 11.5 g/dL (13.5-18.0); LYMPHOCYTES # (AUTO) 0.9 X10^3/uL (1.3-2.9); LYMPHOCYTES % (AUTO) 17.3 % (21.0-51.0); MEAN CORPUSCULAR HEMOGLOBIN 27.4 pg (27.0-34.0); MEAN CORPUSCULAR HGB CONC 33.5 g/dL (33.0-35.0); MEAN CORPUSCULAR VOLUME 81.9 fL (80.0-100.0); MEAN PLATELET VOLUME 8.1 fL (7.4-11.0); MONOCYTES # (AUTO) 0.5 x10^3/uL (0.3-0.8); MONOCYTES % (AUTO) 9.6 % (0.0-13.0); NEUTROPHILS # (AUTO) 3.4 x10^3/uL (2.2-4.8); NEUTROPHILS % (AUTO) 68.3 % (42.0-75.0); PLATELET COUNT 304 X10^3/uL (150.0-450.0); RED BLOOD COUNT 4.18 X10^6/uL (4.7-6.0); RED CELL DISTRIBUTION WIDTH 18.8 % (11.6-16.5)
[2017-11-17 10:08] LABS: ALANINE AMINOTRANSFERASE 15 Units/L (12-78); ALBUMIN 2.7 g/dL (3.4-5.0); ALKALINE PHOSPHATASE 77 Units/L (46-116); ASPARTATE AMINO TRANSFERASE 19 Units/L (15-37); BLOOD UREA NITROGEN 12 mg/dL (7-18); CALCIUM 8.1 mg/dL (8.5-10.1); CARBON DIOXIDE 31.2 mmol/L (21-32); CHLORIDE 102 mmol/L (98-107); COR CA(FOR HYPOALB) 9.1 mg/dL (8.5-10.1); CREATININE 0.74 mg/dL (0.70-1.30); SODIUM 139 mmol/L (136-145); TOTAL PROTEIN 6.6 g/dL (6.4-8.2); eGFR BLACK RACES > 60 (>60); eGFR NON BLACK RACES > 60 (>60)
== END ==
LOC: LAB 09:37
PROVIDERS: ATTEND Internal Medicine Medical Oncology
DX: Z79.01 Long term (current) use of anticoagulants (principal); C34.2 Malignant neoplasm of middle lobe, bronchus or lung; C79.51 Secondary malignant neoplasm of bone; D64.89 Other specified anemias; M54.5 Low back pain; R29.898 Other symptoms and signs involving the musculoskeletal system
CPT/HCPCS: 80053; 85025; 85610

== ENCOUNTER → 2017-12-14 | Outpatient (CLI) | payer BC, OTHER ==
[2017-12-14 12:14] LABS: BASOPHILS % (AUTO) 0.6 % (0.2-1.0); EOSINOPHILS # (AUTO) 0.1 x10^3/uL (0.0-0.2); EOSINOPHILS % (AUTO) 1.9 % (0.9-2.9); HEMATOCRIT 33.5 % (42.0-54.0); HEMOGLOBIN 11.2 g/dL (13.5-18.0); LYMPHOCYTES % (AUTO) 14.9 % (21.0-51.0); MEAN CORPUSCULAR HEMOGLOBIN 28.2 pg (27.0-34.0); MEAN CORPUSCULAR HGB CONC 33.5 g/dL (33.0-35.0); MEAN CORPUSCULAR VOLUME 84.1 fL (80.0-100.0); MEAN PLATELET VOLUME 8.1 fL (7.4-11.0); MONOCYTES # (AUTO) 0.7 x10^3/uL (0.3-0.8); MONOCYTES % (AUTO) 9.9 % (0.0-13.0); NEUTROPHILS % (AUTO) 72.7 % (42.0-75.0); PLATELET COUNT 305 X10^3/uL (150.0-450.0); RED BLOOD COUNT 3.98 X10^6/uL (4.7-6.0); RED CELL DISTRIBUTION WIDTH 16.6 % (11.6-16.5); WHITE BLOOD COUNT 6.9 X10^3/uL (3.6-10.0)
[2017-12-14 12:22] LABS: ALANINE AMINOTRANSFERASE 17 Units/L (12-78); ALBUMIN 2.9 g/dL (3.4-5.0); ALKALINE PHOSPHATASE 71 Units/L (46-116); ASPARTATE AMINO TRANSFERASE 15 Units/L (15-37); BLOOD UREA NITROGEN 16 mg/dL (7-18); CARBON DIOXIDE 32.8 mmol/L (21-32); CHLORIDE 99 mmol/L (98-107); COR CA(FOR HYPOALB) 8.9 mg/dL (8.5-10.1); CREATININE 0.77 mg/dL (0.70-1.30); SODIUM 139 mmol/L (136-145); TOTAL PROTEIN 6.9 g/dL (6.4-8.2); eGFR BLACK RACES > 60 (>60); eGFR NON BLACK RACES > 60 (>60)
== END ==
LOC: LAB 11:56
PROVIDERS: ATTEND Internal Medicine Medical Oncology
DX: Z79.01 Long term (current) use of anticoagulants (principal); C34.2 Malignant neoplasm of middle lobe, bronchus or lung; C79.51 Secondary malignant neoplasm of bone; D64.89 Other specified anemias; M54.5 Low back pain; R29.898 Other symptoms and signs involving the musculoskeletal system
CPT/HCPCS: 36415; 80053; 85025; 85610

== ENCOUNTER → 2017-12-29 | Outpatient (CLI) | payer BC, OTHER ==
--- NOTE | 2017-12-29 17:17 | CT ---
Examination: CT of the chest, abdomen and pelvis with contrast. Clinical history: Follow-up lung cancer, bone cancer. Technique: Multiple axial images were obtained from the lung apices down to the pubic symphysis follo wing the intravenous administration of contrast. Oral contrast was also administered. Dose reduction techniques including automated exposure control (AEC) and adjustment of mA and kV were utilized. Comparison: CTA of the chest dated 08/31/2017. Findings: -CT chest: A single lead pacemaker/defibrillator device is seen overlying the left hemithorax with the lead term inating in the right ventricle. The thyroid gland is unremarkable. The heart is normal in size. Coronary artery calcifications are noted, suggestive of coronary artery disease. No pericardial effusion is noted. The thoracic aorta is calcified and mildly tortuous, but is normal in caliber. The remainder of the g reat vessels are within normal limits. There is a confluent masslike opacity with associated calcifications seen extending from the right hi lum into the right middle lobe and measuring approximately 3.3 x 6.3 x 8.6 cm in size. The lesion immanuel ears to have enlarged when compared with the prior examination, but the apparent enlargement may in p art be due to postobstructive atelectasis related to circumferential narrowing of the right middle lo be bronchus by confluent adenopathy in the right hilum. No additional adenopathy is evident in the me diastinum. A 5 mm indeterminate noncalcified subpleural nodule is present in the left lower lobe (series 3, imag e 41). There is a persistent pleural based opacity associated with the superior segment of the right lower l obe posteromedially, which has enlarged and now measures 2.3 x 1.4 cm in size and is worrisome for a metastatic focus. Emphysematous changes are noted in the lungs bilaterally. There are scattered areas of mild bronchiectasis noted in the lungs bilaterally. Stable calcified granulomas are noted in the right lower lobe. Reticular interstitial opacities are seen in the right upper lobe adjacent to the major fissure. Find ings were also evident on the prior examination but appears slightly more pronounced and could be due to chronic interstitial lung disease or lymphangitic spread of carcinoma. No pneumothorax is noted. Tiny bilateral pleural effusions are noted. - CT abdomen and pelvis: The left kidney is moderately atrophic. The right kidney is malrotated, but is otherwise unremarkable . The liver, spleen, pancreas, gallbladder and adrenal glands are normal in appearance. The abdominal aorta is heavily calcified, but is normal in caliber. There is a lack of intra-abdominal fat, which decreases the sensitivity in the evaluation for an acut e intra-abdominal inflammatory or infective process. The bowel gas pattern is nonobstructive. There is no free air. The colon and small bowel are grossly unremarkable. The appendix is not visualized. The bladder is markedly distended, but is otherwise within normal limits. Clinical correlation is rec ommended to exclude the possibility of a bladder outlet obstruction. The prostate is mildly enlarged. Calcifications are seen associated with the prostate, suggestive of chronic prostatitis. No pelvic mass or fluid collection is noted. No enlarged lymph nodes, by CT criteria, are noted in the mesenteric, periaortic or deep pelvic regio ns. Extensive sclerotic and lytic bony metastases are seen throughout the thoracic and lumbar spine and i n the ribs bilaterally and the pelvis. Multiple compression fractures are also seen in the thoracic a nd lumbar spine. Two metallic screws are seen associated with the left hip. Impression: 1. There is a confluent masslike opacity with associated calcifications seen extending from the right hilum into the right middle lobe and measuring approximately 3.3 x 6.3 x 8.6 cm in size. The lesion appears to have enlarged when compared with the prior examination, but the apparent enlargement may i n part be due to postobstructive atelectasis related to circumferential narrowing of the right middle lobe bronchus by confluent adenopathy in the right hilum. No additional adenopathy is evident in the mediastinum. 2. A 5 mm indeterminate noncalcified subpleural nodule is present in the left lower lobe. 3. There is a persistent pleural based opacity associated with the superior segment of the right lowe r lobe posteromedially, which has enlarged and now measures 2.3 x 1.4 cm in size and is worrisome for a metastatic focus. 4. Reticular interstitial opacities are seen in the right upper lobe adjacent to the major fissure. F indings were also evident on the prior examination but appears slightly more pronounced and could be due to chronic interstitial lung disease or lymphangitic spread of carcinoma. 5. Extensive bony metastases, as described above. 6. Emphysematous changes in the lungs bilaterally. 7. Scattered areas of bronchiectasis in the lungs bilaterally. 8. Tiny bilateral pleural effusions. 9. Calcified granulomata are noted in the right lower lobe. 10. The bladder is markedly distended, but is otherwise within normal limits. Clinical correlation is recommended to exclude the possibility of a bladder outlet obstruction. 11. The prostate is mildly enlarged. Calcifications are seen associated with the prostate, suggestive of chronic prostatitis. 12. Coronary artery calcifications, suggestive of coronary artery disease. Reported By:
== END ==
LOC: RAD 09:42
PROVIDERS: ATTEND Internal Medicine Medical Oncology
DX: C34.2 Malignant neoplasm of middle lobe, bronchus or lung (principal); C79.51 Secondary malignant neoplasm of bone; M81.0 Age-related osteoporosis without current pathological fracture
CPT/HCPCS: 71260; 74177; A4222

== ENCOUNTER → 2018-01-04 | Outpatient (CLI) | payer BC, OTHER | LOC: LAB 14:52 | PROVIDERS: ATTEND Internal Medicine | DX: R05 Cough (principal); J44.9 Chronic obstructive pulmonary disease, unspecified | CPT/HCPCS: 87070; 87205 ==

== ENCOUNTER → 2018-01-05 | Outpatient (CLI) | payer BC, OTHER ==
[2018-01-05 09:37] LABS: BASOPHILS # (AUTO) 0.1 X10^3/uL (0.0-0.1); EOSINOPHILS # (AUTO) 0.2 x10^3/uL (0.0-0.2); EOSINOPHILS % (AUTO) 2.9 % (0.9-2.9); HEMATOCRIT 36.6 % (42.0-54.0); HEMOGLOBIN 12.3 g/dL (13.5-18.0); LYMPHOCYTES % (AUTO) 17.4 % (21.0-51.0); MEAN CORPUSCULAR HEMOGLOBIN 28.5 pg (27.0-34.0); MEAN CORPUSCULAR HGB CONC 33.6 g/dL (33.0-35.0); MEAN CORPUSCULAR VOLUME 84.7 fL (80.0-100.0); MONOCYTES # (AUTO) 0.5 x10^3/uL (0.3-0.8); NEUTROPHILS # (AUTO) 3.9 x10^3/uL (2.2-4.8); NEUTROPHILS % (AUTO) 69.7 % (42.0-75.0); PLATELET COUNT 298 X10^3/uL (150.0-450.0); RED BLOOD COUNT 4.32 X10^6/uL (4.7-6.0); RED CELL DISTRIBUTION WIDTH 15.6 % (11.6-16.5); WHITE BLOOD COUNT 5.6 X10^3/uL (3.6-10.0)
[2018-01-05 09:54] LABS: ALANINE AMINOTRANSFERASE 17 Units/L (12-78); ALBUMIN 2.8 g/dL (3.4-5.0); ALKALINE PHOSPHATASE 76 Units/L (46-116); ASPARTATE AMINO TRANSFERASE 15 Units/L (15-37); BLOOD UREA NITROGEN 14 mg/dL (7-18); CALCIUM 8.7 mg/dL (8.5-10.1); CARBON DIOXIDE 32.9 mmol/L (21-32); CHLORIDE 103 mmol/L (98-107); COR CA(FOR HYPOALB) 9.7 mg/dL (8.5-10.1); CREATININE 1.02 mg/dL (0.70-1.30); SODIUM 141 mmol/L (136-145); eGFR BLACK RACES > 60 (>60); eGFR NON BLACK RACES > 60 (>60)
--- NOTE | 2018-01-05 14:15 | NM ---
BONE SCAN CLINICAL INDICATION: Lung cancer PROCEDURE: Approximately 2-4 hours following intravenous administration of 25.5 mCi of [id number], w hole body delayed planar images were obtained from the anterior and posterior projections. COMPARISON: CT chest abdomen pelvis 12/30/2027 demonstrating diffuse bony metastatic disease. FINDINGS: Diffuse focal regions of uptake throughout the visualized spine, ribs and left pelvis. There is normal by distribution of the radiotracer within the genitourinary system and soft tissues. IMPRESSION: 1. Diffuse bony metastatic disease which is identical to CT done 6 days prior. Reported By:
== END ==
LOC: RAD 08:04
PROVIDERS: ATTEND Internal Medicine Medical Oncology
DX: C34.2 Malignant neoplasm of middle lobe, bronchus or lung (principal); C79.51 Secondary malignant neoplasm of bone; M81.0 Age-related osteoporosis without current pathological fracture
CPT/HCPCS: 36415; 78306; 80053; 85025; A9503

== ENCOUNTER 2018-01-21 14:06 | Inpatient (IN) | payer BC, OTHER ==
[2018-01-21 16:01] LABS: BASOPHILS % (AUTO) 0.7 % (0.2-1.0); EOSINOPHILS # (AUTO) 0.1 x10^3/uL (0.0-0.2); EOSINOPHILS % (AUTO) 1.8 % (0.9-2.9); HEMATOCRIT 34.9 % (42.0-54.0); HEMOGLOBIN 11.8 g/dL (13.5-18.0); LYMPHOCYTES # (AUTO) 0.7 X10^3/uL (1.3-2.9); LYMPHOCYTES % (AUTO) 10.5 % (21.0-51.0); MEAN CORPUSCULAR HEMOGLOBIN 28.3 pg (27.0-34.0); MEAN CORPUSCULAR HGB CONC 33.7 g/dL (33.0-35.0); MEAN PLATELET VOLUME 9.1 fL (7.4-11.0); MONOCYTES # (AUTO) 0.7 x10^3/uL (0.3-0.8); MONOCYTES % (AUTO) 11.1 % (0.0-13.0); NEUTROPHILS # (AUTO) 4.7 x10^3/uL (2.2-4.8); NEUTROPHILS % (AUTO) 75.9 % (42.0-75.0); PLATELET COUNT 267 X10^3/uL (150.0-450.0); RED BLOOD COUNT 4.16 X10^6/uL (4.7-6.0); RED CELL DISTRIBUTION WIDTH 15.5 % (11.6-16.5); WHITE BLOOD COUNT 6.3 X10^3/uL (3.6-10.0)
[2018-01-21 16:11] LABS: ALANINE AMINOTRANSFERASE 16 Units/L (12-78); ALBUMIN 2.6 g/dL (3.4-5.0); ALKALINE PHOSPHATASE 69 Units/L (46-116); ASPARTATE AMINO TRANSFERASE 16 Units/L (15-37); BLOOD UREA NITROGEN 23 mg/dL (7-18); CALCIUM 8.6 mg/dL (8.5-10.1); CARBON DIOXIDE 35.3 mmol/L (21-32); CHLORIDE 98 mmol/L (98-107); COR CA(FOR HYPOALB) 9.7 mg/dL (8.5-10.1); CREATININE 1.01 mg/dL (0.70-1.30); SODIUM 138 mmol/L (136-145); TOTAL PROTEIN 7.8 g/dL (6.4-8.2); eGFR BLACK RACES > 60 (>60); eGFR NON BLACK RACES > 60 (>60)
[2018-01-21] MEDS: ALBUMIN HUMAN 25%- 100ML 100 ML IV SCH (16:31)
[2018-01-21] MEDS: PROCALAMINE 3 % 1,000 ML IV SCH (16:31)
[2018-01-21] MEDS: NICOTINE PATCH TD SCH (16:31)
[2018-01-21] MEDS: NS 1000 ML 1,000 ML IV SCH (16:32)
[2018-01-21 16:46] VITALS: BMI 14.2
[2018-01-21] MEDS: LOVENOX INJ 40 MG SYR SC SCH (17:58)
[2018-01-22] MEDS: NS 1000 ML 1,000 ML IV SCH ×2 (04:49→17:45)
[2018-01-22] MEDS: LOVENOX INJ 40 MG SYR SC SCH ×2 (05:11→17:45)
[2018-01-22 06:16] LABS: BASOPHILS % (AUTO) 0.7 % (0.2-1.0); EOSINOPHILS # (AUTO) 0.2 x10^3/uL (0.0-0.2); HEMATOCRIT 30.1 % (42.0-54.0); LYMPHOCYTES # (AUTO) 0.7 X10^3/uL (1.3-2.9); LYMPHOCYTES % (AUTO) 13.6 % (21.0-51.0); MEAN CORPUSCULAR HGB CONC 33.4 g/dL (33.0-35.0); MEAN PLATELET VOLUME 8.9 fL (7.4-11.0); MONOCYTES # (AUTO) 0.7 x10^3/uL (0.3-0.8); MONOCYTES % (AUTO) 13.1 % (0.0-13.0); NEUTROPHILS # (AUTO) 3.5 x10^3/uL (2.2-4.8); NEUTROPHILS % (AUTO) 68.6 % (42.0-75.0); PLATELET COUNT 216 X10^3/uL (150.0-450.0); RED BLOOD COUNT 3.58 X10^6/uL (4.7-6.0); RED CELL DISTRIBUTION WIDTH 15.6 % (11.6-16.5); WHITE BLOOD COUNT 5.1 X10^3/uL (3.6-10.0)
[2018-01-22 06:26] LABS: ALANINE AMINOTRANSFERASE 14 Units/L (12-78); ALBUMIN 2.4 g/dL (3.4-5.0); ALKALINE PHOSPHATASE 55 Units/L (46-116); ASPARTATE AMINO TRANSFERASE 14 Units/L (15-37); BLOOD UREA NITROGEN 19 mg/dL (7-18); CALCIUM 8.2 mg/dL (8.5-10.1); CHLORIDE 102 mmol/L (98-107); COR CA(FOR HYPOALB) 9.5 mg/dL (8.5-10.1); CREATININE 0.92 mg/dL (0.70-1.30); SODIUM 139 mmol/L (136-145); TOTAL PROTEIN 6.7 g/dL (6.4-8.2); eGFR BLACK RACES > 60 (>60); eGFR NON BLACK RACES > 60 (>60)
[2018-01-22] MEDS: ALBUMIN HUMAN 25%- 100ML 100 ML IV SCH (08:31)
[2018-01-22] MEDS: NICOTINE PATCH TD SCH (08:41)
--- NOTE | 2018-01-22 11:22 | DR.H&P ---
H&P - History & Physical for Day of: H&P Date: 01/21/18 - Chief Complaint Chief Complaint: GENERALIZED WEAKNESS, RIGHT KNEE PAIN - Allergies Allergies/Adverse Reactions: Allergies Allergy/AdvReac Type Severity Reaction Status Date / Time No Known Drug Allergies Allergy Verified 04/27/17 14:15 - History of Present Illness History of Present Illness: IS A 72 YEAR OLD PATIENT OF OURS WHO PRESENTED TO THE OFFICE WITH COMPLAINTS OF GENERALIZED WEAKNESS AND RIGHT KNEE AND LEG PAIN. PATIENT HAS A HISTORY OF METASTATIC LUNG CANCER. HE REPORTS THAT HE RECENTLY FOLLOWED UP WITH HIS ONCOLOGIST TO RECEIVE RESULTS OF HIS LAST PET SCAN. INFORMED PATIENT OF NEW MALIGNANT NODULES AND GROWTH OF PREVIOUS NODULES. PLANNED FOR A BIOPSY OF THE HIP, THEREFORE, STOPPED HIS DOSAGE OF COUMADIN ON THURSDAY. PATIENT WAS SENT FOR AN OUTPATIENT VENOUS DOPPLER OF THE RIGHT LOWER EXTREMITY WHICH REVEALED THROMBOSIS OF THE POPLITEAL VEIN AND SUPERFICIAL FEMORAL VEIN ABOVE THE KNEE. WE PLANNED TO ADMIT PATIENT TO THE HOSPITAL FOR FURTHER EVALUATION AND TREATMENT. WE WILL OBTAIN LABS AND START PATIENT ON NORMAL SALINE @40 ML/HR, PROCALAMINE 40ML/HR, ALBUMIN 25% IV DAILY, AND LOVENOX 40MG SC Q12H. ON ADMISSION, VITALS WERE 97.5-96-18-97%-103/64. ABNORMAL LABS REVEALED THE FOLLOWING: RBC 4.16, HGB 11.8, HCT 34.9, INR 5.74, CARBON DIOXIDE 35.3, BUN 23, ALBUMIN 2.6, GLOBULIN 5.2. WE PLAN TO FOLLOW UP WITH AM LABS AND CONTINUE TO MONITOR PATIENT. - Past Medical History Past Medical History: CHF, COPD, Coronary Artery Disease, Depression, Dyslipidemia, Hypertension Additional Medical History: LUNG CANCER - Past Surgical History Surgical History: Appendectomy, Tonsillectomy Additional Surgical History: PACEMAKER, DEFIBRILLATOR, LEFT LEG STENT, - Family History Family Medical History: [place] - Social History Does patient currently use any type of tobacco product: No Have you used tobacco products in the last 12 months: No Type of Tobacco Use: None How many years tobacco product used: 50 Does any household member use tobacco: No Alcohol Use: Occasionally Drug Use: Prescription Drugs - Medications Home Medications: Fentanyl 25 Mcg/Hr [DURAGESIC PATCH 25 mcg/hr *] 12 mcg TD Q72H 01/21/18 [ History Confirmed 01/21/18] Mirtazapine [REMERON 15 MG *] 15 mg PO HS 01/21/18 [History Confirmed 01/21/18] Oxycodone/Acet 5 mg/325 mg [PERCOCET 5/325 MG *] 1 ea PO Q4-6H PRN 01/21/18 [ History Confirmed 01/21/18] Tizanidine HCl 4 mg PO HS PRN 01/21/18 [History Confirmed 01/21/18] - Review of Systems Constitutional: Weakness, Malaise Eyes: No Symptoms Reported ENT: No Symptoms Reported Respiratory: Shortness of Breath, SOB with Excertion. denies: Cough, Dry, Hemoptysis, Sputum, Wheezing Cardiovascular: No Symptoms Reported. denies: Edema (RIGHT LOWER EXTREMITY ) Gastrointestinal: No Symptoms Reported. denies: Nausea, Vomiting, Abdominal Pain, Hematochezia Genitourinary: No Symptoms Reported Musculoskeletal: Back Pain (CHRONIC LOWER BACK PAIN ) Skin: No Symptoms Reported Neurological: Weakness - Physical Exam Vital Signs: Temperature 97.5 F Pulse Rate [Right Brachial] 71 Pulse Rate 94 Respiratory Rate 20 Blood Pressure [Right Arm] 99/58 Blood Pressure [Left Arm] 95/54 Blood Pressure 95/54 O2 Sat by Pulse Oximetry 96 Oriented: Normal Eyes: Normal Ear: Normal Nose: Normal Throat: Normal Respiratory: Diminished Throughout Cardiovascular: Edema (RIGHT LOWER EXTREMITY NON-PITTING EDEMA ) : Normal Auscultation: Bowel Sounds: Normal Palpation: Normal Tenderness: Normal Skin: Red, Tender (RIGHT KNEE, LOWER EXTREMITY) Musculoskeletal: Right, Knee, Leg, Back:Lumbar, Swelling, Tender Psychiatric: Normal Mood Description: Calm Affect: Normal Speech Pattern: Clear - Assessment/Plan (1) DVT of popliteal vein Qualifiers: Chronicity: acute Laterality: right Qualified Code(s): I82.431 - Acute embolism and thrombosis of right popliteal vein Status: Acute Plan: LOVENOX 40MG SC BID, CONTINUE TO MONITOR (2) Generalized weakness Status: Acute Plan: ALBUMIN 25% IV DAILY, PROCALAMINE 40ML/HR, CONTINUE TO MONITOR
[2018-01-22] MEDS ORDERED: XANAX PO PRN (12:17)
[2018-01-22] MEDS ORDERED: PERCOCET TAB 5/325 MG PO PRN (12:17)
[2018-01-22] MEDS ORDERED: ZANAFLEX PO PRN (12:17)
[2018-01-22] MEDS ORDERED: MILK OF MAGNESIA PO PRN (12:17)
--- NOTE | 2018-01-22 12:25 | PCM.PROG ---
Progress Note - Progress Note for Day of Date: 01/22/18 - Subjective Subjective: WAS ADMITTED FOR A RLE DVT AND GENERALIZED WEAKNESS. TODAY, HE IS ALERT AND ORIENTED, LYING IN BED ON MORNING ROUNDS. SPOUSE IS AT BEDSIDE. HE CONTINUES WITH RIGHT KNEE PAIN, SWELLING, AND GENERALIZED WEAKNESS. ON EXAMINATION, DECREASED SKIN TURGOR NOTED. HEART IS REGULAR IN RATE AND RHYTHM. BILATERAL LUNGS ARE NOTED WITH DIMINISHED LUNG SOUNDS THROUGHOUT. ABDOMEN IS ROUND, SOFT, AND NON-TENDER WITH NORMAL BOWEL SOUNDS NOTED IN ALL QUADRANTS. PARASPINOUS TENDERNESS NOTED. RIGHT LOWER EXTREMITY CONTINUES WITH ERYTHMA AND EDEMA. NORMAL RANGE OF MOTION NOTED TO ALL EXTREMITIES. HIS VITALS THIS MORNING ARE 97.5-71-20-96%-99/58. LABS WERE OBTAINED. ABNORMAL LAB VALUES INCLUDE THE FOLLOWING: RBC 3.58, HGB 10.0, HCT 30.1, INR DECREASED TO 5.13, CARBON DIOXIDE 33.0, BUN 19, GLUCOSE 101, CALCIUM 8.2, AST 14, ALBUMIN 2.4. HE CONTINUES TO RECEIVE ALBUMIN, PROCALAMINE, AND LOVENOX AT THIS TIME. WE WILL CONTINUE WITH CURRENT PLAN OF CARE TODAY. OTHERWISE, WE PLAN TO RESUME MEDICATION AND CONTINUE WITH CURRENT PLAN OF CARE. WE WILL FOLLOW UP WITH AM LABS AND CONTINUE TO MONTIOR PATIENT. - Past Medical Family Social History Past Med/Fam/Surg Hx: No changes since H&P Allergies: Allergies No Known Drug Allergies Allergy (Verified 04/27/17 14:15) - Review of Systems ROS: No change since H&P - Vital Signs and I&O's Vital Signs: Temperature 97.5 F Pulse Rate [Right Brachial] 71 Pulse Rate 94 Respiratory Rate 20 Blood Pressure [Right Arm] 99/58 Blood Pressure [Left Arm] 95/54 Blood Pressure 95/54 O2 Sat by Pulse Oximetry 96 Intake and Output: Intake & Output 01/20/18 01/21/18 01/22/18 01/23/18 11:59 11:59 11:59 11:59 Intake Total 2211 Output Total 0 Balance 2211 - Physical Exam Oriented: Normal Eyes: Normal Ear: Normal Nose: Normal Throat: Normal Respiratory: Normal Cardiovascular: Edema (RIGHT LOWER EXTREMITY NON-PITTING EDEMA ) : Normal Auscultation: Bowel Sounds: Normal Palpation: Normal Tenderness: Normal Skin: Red, Tender (RIGHT KNEE, LOWER EXTREMITY) Musculoskeletal: Right, Knee, Leg, Back:Lumbar, Swelling, Tender Psychiatric: Normal Mood Description: Calm Affect: Normal Speech Pattern: Clear - Laboratory and Diagnostics Result Diagrams: 01/22/18 05:08 01/22/18 05:08 Labs: Laboratory WBC 5.1 X10^3/uL (3.6-10.0) 01/22/18 05:08 RBC 3.58 X10^6/uL (4.7-6.0) L 01/22/18 05:08 Hgb 10.0 g/dL (13.5-18.0) L 01/22/18 05:08 Hct 30.1 % (42.0-54.0) L 01/22/18 05:08 MCV 84.0 fL (80.0-100.0) 01/22/18 05:08 MCH 28.0 pg (27.0-34.0) 01/22/18 05:08 MCHC 33.4 g/dL (33.0-35.0) 01/22/18 05:08 RDW 15.6 % (11.6-16.5) 01/22/18 05:08 Plt Count 216 X10^3/uL (150.0-450.0) 01/22/18 05:08 MPV 8.9 fL (7.4-11.0) 01/22/18 05:08 Neut % (Auto) 68.6 % (42.0-75.0) 01/22/18 05:08 Lymph % (Auto) 13.6 % (21.0-51.0) L 01/22/18 05:08 [place] % (Auto) 13.1 % (0.0-13.0) H 01/22/18 05:08 Eos % (Auto) 4.0 % (0.9-2.9) H 01/22/18 05:08 Baso % (Auto) 0.7 % (0.2-1.0) 01/22/18 05:08 Neut # (Auto) 3.5 x10^3/uL (2.2-4.8) 01/22/18 05:08 Lymph # (Auto) 0.7 X10^3/uL (1.3-2.9) L 01/22/18 05:08 [place] # (Auto) 0.7 x10^3/uL (0.3-0.8) 01/22/18 05:08 Eos # (Auto) 0.2 x10^3/uL (0.0-0.2) 01/22/18 05:08 Baso # (Auto) 0.0 X10^3/uL (0.0-0.1) 01/22/18 05:08 Absolute Nucleated RBC 0.0 /100WBC 01/22/18 05:08 INR Target Range - 01/22/18 05:08 INR 5.13 (0.8-1.3) H* 01/22/18 05:08 Sodium 139 mmol/L (136-145) 01/22/18 05:08 Corrected Sodium TNP 01/22/18 05:08 Potassium 4.1 mmol/L (3.5-5.1) 01/22/18 05:08 Chloride 102 mmol/L (98-107) 01/22/18 05:08 Carbon Dioxide 33.0 mmol/L (21-32) H 01/22/18 05:08 BUN 19 mg/dL (7-18) H 01/22/18 05:08 Creatinine 0.92 mg/dL (0.70-1.30) 01/22/18 05:08 Est GFR (MDRD) Af Amer > 60 (>60) 01/22/18 05:08 Est GFR (MDRD) Non-Af > 60 (>60) 01/22/18 05:08 Glucose 101 mg/dL (65-99) H 01/22/18 05:08 Calcium 8.2 mg/dL (8.5-10.1) L 01/22/18 05:08 Corrected Calcium 9.5 mg/dL (8.5-10.1) 01/22/18 05:08 Total Bilirubin 0.20 mg/dL (0.2-1.0) 01/22/18 05:08 AST 14 Units/L (15-37) L 01/22/18 05:08 ALT 14 Units/L (12-78) 01/22/18 05:08 Alkaline Phosphatase 55 Units/L (46-116) 01/22/18 05:08 Total Protein 6.7 g/dL (6.4-8.2) 01/22/18 05:08 Albumin 2.4 g/dL (3.4-5.0) L 01/22/18 05:08 Globulin 4.3 g/dL (2.5-4.5) 01/22/18 05:08 Albumin/Globulin Ratio 0.6 Ratio (1.1-2.1) L 01/22/18 05:08 - Plan (1) DVT of popliteal vein Status: Acute Qualifiers: Chronicity: acute Laterality: right Qualified Code(s): I82.431 - Acute embolism and thrombosis of right popliteal vein Plan: LOVENOX 40MG SC BID, CONTINUE TO MONITOR (2) Generalized weakness Status: Acute Plan: ALBUMIN 25% IV DAILY, PROCALAMINE 40ML/HR, CONTINUE TO MONITOR
[2018-01-22] MEDS: ALDACTONE TAB 25 MG PO SCH ×2 (15:08→21:39)
[2018-01-22] MEDS: COLACE CAP 100 MG PO SCH (15:08)
[2018-01-22] MEDS: COREG TAB 6.25 MG PO SCH ×2 (15:08→21:38)
[2018-01-22] MEDS: LANOXIN PO SCH (15:08)
[2018-01-22] MEDS: ZANTAC PO SCH ×2 (15:09→21:38)
[2018-01-22] MEDS: ERLOTINIB HCL 150 MG PO SCH (16:17)
[2018-01-22] MEDS: PATIENT'S HOME MEDICATION (Multivit-Min/Fa/Lycopen/Lutein [Centrum Silver Tablet] 1 TAB) PO SCH (16:17)
[2018-01-22] MEDS: MINERALS PO SCH (16:17)
[2018-01-22] MEDS: UBIDECARENONE 200 MG PO SCH (16:17)
[2018-01-22] MEDS: VITS A C E PO SCH (16:17)
[2018-01-22] MEDS: LUTEIN PO SCH (16:17)
[2018-01-22] MEDS: RAMIPRIL 1.25 MG PO SCH (16:17)
[2018-01-22] MEDS: PROCALAMINE 3 % 1,000 ML IV SCH (17:45)
[2018-01-22] MEDS: K-DUR TAB 20 MEQ PO SCH (21:38)
[2018-01-22] MEDS: PRAVACHOL PO SCH (21:39)
[2018-01-22] MEDS: REMERON PO SCH (21:40)
[2018-01-22] MEDS: PATIENT'S HOME MEDICATION PO SCH (21:40)
[2018-01-22] MEDS: XYLOCAINE VISCOUS MT PRN ×2 (22:37→22:48)
[2018-01-22] MEDS ORDERED: XYLOCAINE VISCOUS ONE (22:45)
[2018-01-23] MEDS: LOVENOX INJ 40 MG SYR SC SCH ×2 (05:22→18:52)
[2018-01-23] MEDS: NS 1000 ML 1,000 ML IV SCH ×2 (05:58→18:52)
[2018-01-23 06:30] LABS: BASOPHILS % (AUTO) 0.8 % (0.2-1.0); EOSINOPHILS # (AUTO) 0.2 x10^3/uL (0.0-0.2); EOSINOPHILS % (AUTO) 4.3 % (0.9-2.9); HEMATOCRIT 28.1 % (42.0-54.0); HEMOGLOBIN 9.6 g/dL (13.5-18.0); LYMPHOCYTES # (AUTO) 0.6 X10^3/uL (1.3-2.9); LYMPHOCYTES % (AUTO) 13.9 % (21.0-51.0); MEAN CORPUSCULAR HEMOGLOBIN 28.5 pg (27.0-34.0); MEAN CORPUSCULAR HGB CONC 34.1 g/dL (33.0-35.0); MEAN CORPUSCULAR VOLUME 83.6 fL (80.0-100.0); MEAN PLATELET VOLUME 9.3 fL (7.4-11.0); MONOCYTES # (AUTO) 0.5 x10^3/uL (0.3-0.8); MONOCYTES % (AUTO) 12.5 % (0.0-13.0); NEUTROPHILS % (AUTO) 68.5 % (42.0-75.0); PLATELET COUNT 183 X10^3/uL (150.0-450.0); RED BLOOD COUNT 3.36 X10^6/uL (4.7-6.0); RED CELL DISTRIBUTION WIDTH 15.1 % (11.6-16.5); WHITE BLOOD COUNT 4.4 X10^3/uL (3.6-10.0)
[2018-01-23 06:35] LABS: ALANINE AMINOTRANSFERASE 18 Units/L (12-78); ALBUMIN 2.5 g/dL (3.4-5.0); ALKALINE PHOSPHATASE 55 Units/L (46-116); ASPARTATE AMINO TRANSFERASE 20 Units/L (15-37); BLOOD UREA NITROGEN 17 mg/dL (7-18); CALCIUM 8.1 mg/dL (8.5-10.1); CARBON DIOXIDE 29.6 mmol/L (21-32); CHLORIDE 103 mmol/L (98-107); COR CA(FOR HYPOALB) 9.3 mg/dL (8.5-10.1); CREATININE 0.84 mg/dL (0.70-1.30); SODIUM 137 mmol/L (136-145); TOTAL PROTEIN 6.6 g/dL (6.4-8.2); eGFR BLACK RACES > 60 (>60); eGFR NON BLACK RACES > 60 (>60)
--- NOTE | 2018-01-23 08:13 | RAD ---
Examination: Portable AP chest History: SOB, neoplasm of lung Comparison reference 09/07/2017 Findings: Continued normal heart size with stable position of AICD. Interval increase in parenchymal density in the right hilum and right mid lung. Additional nodule formation right lower lobe. No pneum othorax or large pleural effusion. The left lung remains grossly clear of active process. Impression: Increasing pulmonary abnormality in the right lung as described consistent with progressi on of known lung malignancy. Postobstructive pneumonia may contribute to the current abnormality. Reported By:
[2018-01-23] MEDS: COREG TAB 6.25 MG PO SCH ×2 (09:13→20:30)
[2018-01-23] MEDS: COLACE CAP 100 MG PO SCH (09:13)
[2018-01-23] MEDS: ZANTAC PO SCH ×2 (09:16→20:30)
[2018-01-23] MEDS: ALBUMIN HUMAN 25%- 100ML 100 ML IV SCH (09:16)
[2018-01-23] MEDS: K-DUR TAB 20 MEQ PO SCH ×2 (09:16→20:28)
[2018-01-23] MEDS: ALDACTONE TAB 25 MG PO SCH ×2 (09:16→20:30)
[2018-01-23] MEDS: RAMIPRIL 1.25 MG PO SCH (09:19)
[2018-01-23] MEDS: ERLOTINIB HCL 150 MG PO SCH (09:20)
[2018-01-23] MEDS: PATIENT'S HOME MEDICATION (Multivit-Min/Fa/Lycopen/Lutein [Centrum Silver Tablet] 1 TAB) PO SCH (09:21)
[2018-01-23] MEDS: UBIDECARENONE 200 MG PO SCH (09:22)
[2018-01-23] MEDS: VITS A C E PO SCH (09:22)
[2018-01-23] MEDS: MINERALS PO SCH (09:22)
[2018-01-23] MEDS: LUTEIN PO SCH (09:22)
[2018-01-23] MEDS: PATIENT'S HOME MEDICATION PO SCH ×2 (09:23→20:32)
[2018-01-23] MEDS: LANOXIN PO SCH (10:22)
[2018-01-23] MEDS: NICOTINE PATCH TD SCH ×2 (11:15→20:59)
[2018-01-23] MEDS ORDERED: MAGIC MOUTHWASH MT PRN (12:00)
[2018-01-23] MEDS: PROCALAMINE 3 % 1,000 ML IV SCH (18:52)
[2018-01-23] MEDS: REMERON PO SCH (20:28)
[2018-01-23] MEDS: PRAVACHOL PO SCH (20:30)
[2018-01-23] MEDS: XYLOCAINE VISCOUS MT PRN (20:51)
[2018-01-23] MEDS ORDERED: TUSSIONEX PENNKINETIC SUSP PO PRN (23:51)
[2018-01-24] MEDS: LOVENOX INJ 40 MG SYR SC SCH ×2 (06:22→17:36)
[2018-01-24 06:25] LABS: BASOPHILS # (AUTO) 0.1 X10^3/uL (0.0-0.1); EOSINOPHILS # (AUTO) 0.2 x10^3/uL (0.0-0.2); EOSINOPHILS % (AUTO) 4.7 % (0.9-2.9); HEMOGLOBIN 9.5 g/dL (13.5-18.0); LYMPHOCYTES # (AUTO) 0.7 X10^3/uL (1.3-2.9); LYMPHOCYTES % (AUTO) 13.3 % (21.0-51.0); MEAN CORPUSCULAR HEMOGLOBIN 28.4 pg (27.0-34.0); MEAN CORPUSCULAR HGB CONC 33.9 g/dL (33.0-35.0); MEAN CORPUSCULAR VOLUME 83.8 fL (80.0-100.0); MEAN PLATELET VOLUME 9.4 fL (7.4-11.0); MONOCYTES # (AUTO) 0.7 x10^3/uL (0.3-0.8); MONOCYTES % (AUTO) 13.2 % (0.0-13.0); NEUTROPHILS # (AUTO) 3.4 x10^3/uL (2.2-4.8); NEUTROPHILS % (AUTO) 67.8 % (42.0-75.0); PLATELET COUNT 218 X10^3/uL (150.0-450.0); RED BLOOD COUNT 3.34 X10^6/uL (4.7-6.0); RED CELL DISTRIBUTION WIDTH 15.3 % (11.6-16.5)
[2018-01-24 06:41] LABS: ALANINE AMINOTRANSFERASE 18 Units/L (12-78); ALBUMIN 2.5 g/dL (3.4-5.0); ALKALINE PHOSPHATASE 51 Units/L (46-116); ASPARTATE AMINO TRANSFERASE 17 Units/L (15-37); BLOOD UREA NITROGEN 16 mg/dL (7-18); CALCIUM 8.3 mg/dL (8.5-10.1); CARBON DIOXIDE 29.1 mmol/L (21-32); CHLORIDE 104 mmol/L (98-107); COR CA(FOR HYPOALB) 9.5 mg/dL (8.5-10.1); CREATININE 0.78 mg/dL (0.70-1.30); SODIUM 138 mmol/L (136-145); TOTAL PROTEIN 6.5 g/dL (6.4-8.2); eGFR BLACK RACES > 60 (>60); eGFR NON BLACK RACES > 60 (>60)
--- NOTE | 2018-01-24 08:02 | RAD ---
Examination: Chest, PA and lateral views History: Cough, SOB Comparison 01/23/2018 Findings: Continued normal heart size with right ventricle AICD. The left lung is grossly clear. Pleu ral-parenchymal opacity again noted involving the right lung, perihilar and lower lobe areas. No pneu mothorax seen. There is no obvious osteolytic or osteoblastic disease. Impression: Considering technical differences, no change since 1 day prior. Persistent findings in th e right chest are nonspecific but compatible with known underlying pulmonary malignancy. Reported By:
[2018-01-24] MEDS: NICOTINE PATCH TD SCH (08:26)
[2018-01-24] MEDS: COREG TAB 6.25 MG PO SCH ×2 (08:29→22:10)
[2018-01-24] MEDS: ZANTAC PO SCH ×2 (08:29→21:05)
[2018-01-24] MEDS: LANOXIN PO SCH (08:29)
[2018-01-24] MEDS: PROTONIX INJ 40 MG VIAL IVP SCH (08:33)
[2018-01-24] MEDS: RAMIPRIL 1.25 MG PO SCH (08:33)
[2018-01-24] MEDS: ALBUMIN HUMAN 25%- 100ML 100 ML IV SCH (08:35)
[2018-01-24] MEDS: COLACE CAP 100 MG PO SCH (08:35)
[2018-01-24] MEDS: PATIENT'S HOME MEDICATION PO SCH ×2 (08:37→21:06)
[2018-01-24] MEDS: K-DUR TAB 20 MEQ PO SCH ×2 (08:37→21:04)
[2018-01-24] MEDS: ERLOTINIB HCL 150 MG PO SCH (08:38)
[2018-01-24] MEDS: ALDACTONE TAB 25 MG PO SCH ×2 (08:38→22:09)
[2018-01-24] MEDS: PATIENT'S HOME MEDICATION (Multivit-Min/Fa/Lycopen/Lutein [Centrum Silver Tablet] 1 TAB) PO SCH (08:41)
[2018-01-24] MEDS: LUTEIN PO SCH (08:41)
[2018-01-24] MEDS: MINERALS PO SCH (08:41)
[2018-01-24] MEDS: VITS A C E PO SCH (08:41)
[2018-01-24] MEDS: UBIDECARENONE 200 MG PO SCH (08:42)
[2018-01-24] MEDS ORDERED: PATIENT'S HOME MEDICATION PO SCH (09:00)
[2018-01-24] MEDS ORDERED: PHARMACY CONSULT - DOSE _____ XX SCH (10:00)
[2018-01-24] MEDS ORDERED: TUSSIONEX PENNKINETIC SUSP PO PRN (12:48)
[2018-01-24] MEDS ORDERED: XOPENEX 1.25 MG/3 ML NEBULE NEB ONE (13:48)
[2018-01-24] MEDS: XOPENEX 1.25 MG/3 ML NEBULE NEB SCH ×3 (13:52→20:52)
[2018-01-24] MEDS ORDERED: XOPENEX 1.25 MG/3 ML NEBULE NEB SCH (14:00)
[2018-01-24] MEDS: NS 1000 ML 1,000 ML IV SCH (21:02)
[2018-01-24] MEDS: PROCALAMINE 3 % 1,000 ML IV SCH (21:02)
[2018-01-24] MEDS: PRAVACHOL PO SCH (21:04)
[2018-01-24] MEDS: REMERON PO SCH (21:05)
[2018-01-25] MEDS: LOVENOX INJ 40 MG SYR SC SCH (05:29)
[2018-01-25] MEDS: XOPENEX 1.25 MG/3 ML NEBULE NEB SCH (06:00)
[2018-01-25 06:09] LABS: BASOPHILS % (AUTO) 0.8 % (0.2-1.0); EOSINOPHILS # (AUTO) 0.2 x10^3/uL (0.0-0.2); EOSINOPHILS % (AUTO) 4.7 % (0.9-2.9); HEMATOCRIT 29.9 % (42.0-54.0); HEMOGLOBIN 9.9 g/dL (13.5-18.0); LYMPHOCYTES # (AUTO) 0.6 X10^3/uL (1.3-2.9); LYMPHOCYTES % (AUTO) 12.1 % (21.0-51.0); MEAN CORPUSCULAR HEMOGLOBIN 27.9 pg (27.0-34.0); MEAN CORPUSCULAR HGB CONC 33.2 g/dL (33.0-35.0); MEAN PLATELET VOLUME 9.1 fL (7.4-11.0); MONOCYTES # (AUTO) 0.7 x10^3/uL (0.3-0.8); NEUTROPHILS # (AUTO) 3.5 x10^3/uL (2.2-4.8); NEUTROPHILS % (AUTO) 69.4 % (42.0-75.0); PLATELET COUNT 238 X10^3/uL (150.0-450.0); RED BLOOD COUNT 3.56 X10^6/uL (4.7-6.0); RED CELL DISTRIBUTION WIDTH 15.5 % (11.6-16.5)
[2018-01-25 06:40] LABS: ALANINE AMINOTRANSFERASE 20 Units/L (12-78); ALBUMIN 2.7 g/dL (3.4-5.0); ALKALINE PHOSPHATASE 51 Units/L (46-116); ASPARTATE AMINO TRANSFERASE 15 Units/L (15-37); BLOOD UREA NITROGEN 17 mg/dL (7-18); CALCIUM 8.2 mg/dL (8.5-10.1); CARBON DIOXIDE 29.9 mmol/L (21-32); CHLORIDE 105 mmol/L (98-107); COR CA(FOR HYPOALB) 9.2 mg/dL (8.5-10.1); CREATININE 0.78 mg/dL (0.70-1.30); SODIUM 139 mmol/L (136-145); TOTAL PROTEIN 6.7 g/dL (6.4-8.2); eGFR BLACK RACES > 60 (>60); eGFR NON BLACK RACES > 60 (>60)
[2018-01-25] MEDS: ALBUMIN HUMAN 25%- 100ML 100 ML IV SCH (08:34)
[2018-01-25] MEDS: COREG TAB 6.25 MG PO SCH (08:38)
[2018-01-25] MEDS: ALDACTONE TAB 25 MG PO SCH (08:38)
[2018-01-25] MEDS: LANOXIN PO SCH (08:38)
[2018-01-25] MEDS: ZANTAC PO SCH (08:38)
[2018-01-25] MEDS: K-DUR TAB 20 MEQ PO SCH (08:38)
[2018-01-25] MEDS: COLACE CAP 100 MG PO SCH (08:38)
[2018-01-25] MEDS: ERLOTINIB HCL 150 MG PO SCH (08:40)
[2018-01-25] MEDS: PROTONIX INJ 40 MG VIAL IVP SCH (08:40)
[2018-01-25] MEDS: NICOTINE PATCH TD SCH (08:40)
[2018-01-25] MEDS: PATIENT'S HOME MEDICATION PO SCH (08:41)
[2018-01-25] MEDS: RAMIPRIL 1.25 MG PO SCH (08:41)
[2018-01-25] MEDS: PATIENT'S HOME MEDICATION (Multivit-Min/Fa/Lycopen/Lutein [Centrum Silver Tablet] 1 TAB) PO SCH (08:42)
[2018-01-25] MEDS: UBIDECARENONE 200 MG PO SCH (08:42)
[2018-01-25] MEDS: LUTEIN PO SCH (08:42)
[2018-01-25] MEDS: VITS A C E PO SCH (08:42)
[2018-01-25] MEDS: MINERALS PO SCH (08:42)
[2018-01-25 10:59] VITALS: BP 110/64
== END 2018-01-25 11:10 | disposition home or self-care (01) | DRG 301 ==
LOC: UNDOADMOB 14:06 → MED/SURG 14:06 → OBSVTOIN 15:00 → MED/SURG 15:00
PROVIDERS: ADMIT Internal Medicine; ATTEND Internal Medicine
DX: I82.431 Acute embolism and thrombosis of right popliteal vein (principal); I82.411 Acute embolism and thrombosis of right femoral vein; R53.1 Weakness; I25.10 Atherosclerotic heart disease of native coronary artery without angina pectoris; F32.89 Other specified depressive episodes; E78.2 Mixed hyperlipidemia; I10 Essential (primary) hypertension; J44.9 Chronic obstructive pulmonary disease, unspecified; R60.0 Localized edema; K21.9 Gastro-esophageal reflux disease without esophagitis; Z85.118 Personal history of other malignant neoplasm of bronchus and lung
CPT/HCPCS: 36415; 71045; 71046; 80053; 80162; 85025; 85610; 94640; 94760; A4216; A4222; B5200; C9113; P9047; J1650

== ENCOUNTER → 2018-01-21 | Outpatient (CLI) | payer BC, OTHER ==
--- NOTE | 2018-01-21 13:37 | VAS ---
Right leg pain behind knee Study: Doppler ultrasound of the deep veins of the right lower extremity Findings: There is thrombosis of the right popliteal and proximal superficial femoral vein above the knee. The common femoral vein in the greater saphenous vein are widely patent. Impression: Thrombosis of the popliteal vein and superficial femoral vein above the knee Reported By:
== END | disposition home or self-care (01) | DRG 556 ==
LOC: RAD 12:21
PROVIDERS: ATTEND Internal Medicine Medical Oncology
DX: M79.604 Pain in right leg (principal); I82.431 Acute embolism and thrombosis of right popliteal vein
CPT/HCPCS: 93971

== ENCOUNTER → 2018-02-18 | Outpatient (CLI) | payer BC, OTHER ==
[2018-01-25 10:59] VITALS: BP 110/64
[2018-02-18 12:23] LABS: BASOPHILS % (AUTO) 0.9 % (0.2-1.0); EOSINOPHILS # (AUTO) 0.3 x10^3/uL (0.0-0.2); EOSINOPHILS % (AUTO) 6.7 % (0.9-2.9); HEMATOCRIT 35.2 % (42.0-54.0); HEMOGLOBIN 11.8 g/dL (13.5-18.0); LYMPHOCYTES # (AUTO) 0.7 X10^3/uL (1.3-2.9); LYMPHOCYTES % (AUTO) 13.3 % (21.0-51.0); MEAN CORPUSCULAR HEMOGLOBIN 28.5 pg (27.0-34.0); MEAN CORPUSCULAR HGB CONC 33.5 g/dL (33.0-35.0); MEAN PLATELET VOLUME 9.3 fL (7.4-11.0); MONOCYTES # (AUTO) 0.6 x10^3/uL (0.3-0.8); MONOCYTES % (AUTO) 12.1 % (0.0-13.0); NEUTROPHILS # (AUTO) 3.4 x10^3/uL (2.2-4.8); PLATELET COUNT 235 X10^3/uL (150.0-450.0); RED BLOOD COUNT 4.14 X10^6/uL (4.7-6.0); RED CELL DISTRIBUTION WIDTH 16.4 % (11.6-16.5)
[2018-02-18 12:30] LABS: ALANINE AMINOTRANSFERASE 17 Units/L (12-78); ALBUMIN 2.8 g/dL (3.4-5.0); ALKALINE PHOSPHATASE 76 Units/L (46-116); ASPARTATE AMINO TRANSFERASE 15 Units/L (15-37); BLOOD UREA NITROGEN 14 mg/dL (7-18); CALCIUM 7.8 mg/dL (8.5-10.1); CHLORIDE 97 mmol/L (98-107); COR CA(FOR HYPOALB) 8.8 mg/dL (8.5-10.1); CREATININE 0.85 mg/dL (0.70-1.30); SODIUM 135 mmol/L (136-145); TOTAL PROTEIN 7.3 g/dL (6.4-8.2); eGFR BLACK RACES > 60 (>60); eGFR NON BLACK RACES > 60 (>60)
== END ==
LOC: LAB 11:58 → RAD 11:58
PROVIDERS: ATTEND Internal Medicine Medical Oncology
DX: C34.2 Malignant neoplasm of middle lobe, bronchus or lung (principal); C79.51 Secondary malignant neoplasm of bone; D64.9 Anemia, unspecified; M54.5 Low back pain; R29.898 Other symptoms and signs involving the musculoskeletal system
CPT/HCPCS: 36415; 80053; 85025

== ENCOUNTER 2018-04-01 07:33 | Inpatient (IN) ==
[2018-04-01] MEDS: MORPHINE SULFATE INJ 2 MG INJ IVP PRN ×7 (09:00→22:10)
[2018-04-01] MEDS ORDERED: MORPHINE SULFATE INJ 2 MG INJ ONE (09:01)
[2018-04-01 09:14] LABS: BASOPHILS % (AUTO) 0.5 % (0.2-1.0); EOSINOPHILS % (AUTO) 0.6 % (0.9-2.9); HEMATOCRIT 38.2 % (42.0-54.0); HEMOGLOBIN 12.6 g/dL (13.5-18.0); LYMPHOCYTES # (AUTO) 0.4 X10^3/uL (1.3-2.9); MEAN CORPUSCULAR HEMOGLOBIN 28.8 pg (27.0-34.0); MEAN CORPUSCULAR VOLUME 87.3 fL (80.0-100.0); MEAN PLATELET VOLUME 8.8 fL (7.4-11.0); MONOCYTES # (AUTO) 0.8 x10^3/uL (0.3-0.8); MONOCYTES % (AUTO) 9.8 % (0.0-13.0); NEUTROPHILS # (AUTO) 6.8 x10^3/uL (2.2-4.8); NEUTROPHILS % (AUTO) 84.1 % (42.0-75.0); PLATELET COUNT 157 X10^3/uL (150.0-450.0); RED BLOOD COUNT 4.38 X10^6/uL (4.7-6.0); RED CELL DISTRIBUTION WIDTH 16.9 % (11.6-16.5); WHITE BLOOD COUNT 8.1 X10^3/uL (3.6-10.0)
[2018-04-01 09:21] LABS: ALANINE AMINOTRANSFERASE 18 Units/L (12-78); ALBUMIN 2.4 g/dL (3.4-5.0); ALKALINE PHOSPHATASE 120 Units/L (46-116); ASPARTATE AMINO TRANSFERASE 17 Units/L (15-37); BLOOD UREA NITROGEN 16 mg/dL (7-18); CALCIUM 8.2 mg/dL (8.5-10.1); CARBON DIOXIDE 34.8 mmol/L (21-32); CHLORIDE 100 mmol/L (98-107); COR CA(FOR HYPOALB) 9.5 mg/dL (8.5-10.1); CREATININE 0.79 mg/dL (0.70-1.30); SODIUM 139 mmol/L (136-145); TOTAL PROTEIN 6.9 g/dL (6.4-8.2); eGFR NON BLACK RACES > 60 (>60)
[2018-04-01] MEDS ORDERED: PHARMACY CONSULT - TPN XX SCH (10:00)
--- NOTE | 2018-04-01 10:22 | RAD ---
History: Shortness of breath. Lung CA. Study: Portable upright AP chest Comparison: CT thorax dated March 17, 2018 Findings: There is increasing density in the right lung with volume loss and mild shift of the medias tinum from left to right. The costophrenic angle is indistinct on the right. There is right vascular congestion. There is masslike density in the right lower lobe extending to the right hilum. The heart size is normal and there is an unchanged AICD wire via the left subclavian vein. Impression: New volume loss right lung with right vascular congestion in right small pleural effusion and increas ing opacity in the right middle and lower lobe, most likely secondary to malignancy Reported By:
[2018-04-01] MEDS: ALBUMIN HUMAN 25%- 100 ML 100 ML IV SCH (10:30)
[2018-04-01] MEDS ORDERED: MILK OF MAGNESIA PO PRN (10:59)
[2018-04-01] MEDS: CLINIMIX 4.25 %/10 % 1,000 ML with MVI INJ (ADULT) 10 ML, TRACE ELEMENTS INJ 10 ML, DRU... IV SCH ×3 (11:05)
[2018-04-01] MEDS ORDERED: NS 500 ML IV 500 ML IV ONE (11:24)
[2018-04-01] MEDS: LEVAQUIN PREMIX IV 500 MG 500 MG/100 ML BAG IV SCH (11:35)
[2018-04-01] MEDS: XOPENEX 1.25 MG/3 ML NEBULE NEB SCH ×3 (12:50→20:40)
[2018-04-01] MEDS ORDERED: ATIVAN INJ 2 MG VIAL IVP PRN (13:28)
[2018-04-01 13:41] VITALS: BMI 14.2
[2018-04-01] MEDS: ISOPTO ATROPINE SL SCH ×5 (15:49→23:00)
[2018-04-01] MEDS: TRANSDERM-SCOP TD SCH (15:50)
--- NOTE | 2018-04-01 16:19 | CT ---
CT SOFT TISSUE NECK WITHOUT CONTRAST CLINICAL HISTORY: 72-year-old male with difficulty swallowing and cough. History of lung and bone ca ncer. COMPARISON: CT chest 03/17/2018, chest radiograph this date. Bone scintigraphy January 05, 2018. TECHNIQUE: Multiple axial CT images were obtained from the supraorbital region to the aortic arch wi thout the administration of contrast. The images were reformatted in the sagittal and coronal planes. FINDINGS: It should be noted that lack of intravenous contrast reduces the ability to evaluate for inflammation , neoplasm and vascular abnormality. Hyperextension of the cervical spine as imaged. The visualized brain parenchyma is normal in appearance. Bilateral lens implants with senescent scler al calcifications. The orbits and globes are otherwise normal in appearance. The paranasal sinuses, m astoids, and tympanic cavities are clear. 1 x 1.7 x 2.0 cm prominent soft tissue along the right post lateral wall of the hypopharynx that exte nds to the level of the true vocal cord with subtle medialization of the aryepiglottic fold. Lesion p roduces near complete coaptation of the right laryngeal ventricle. The nasal cavity, nasopharynx, oropharynx, and infraglottic larynx are normal. There is no evidence o f lymphadenopathy. The trachea is normal in appearance. Atherosclerotic calcification of the carotid bulbs and throughout the aorta and its branches. Vascula r structures otherwise incompletely evaluated but grossly unremarkable. No change in right apical calcification and consolidation with unchanged appearance of consolidation in the right perihilar distribution consistent with known history of right-sided lung cancer, see CT of the thorax 03/17/2018 for complete description. Left chest chemo port via subclavian approach with distal tip not visualized on today's examination. The thyroid gland is normal in attenuation and morphology. Diffuse heterogenous bone marrow consisten t with provided history of metastatic osseous lesions. IMPRESSION: 1. Prominent soft tissue within the posterior lateral right hypopharynx extending to the true vocal c ord as described above incompletely evaluated given lack of intravenous contrast. Recommend evaluatio n by Otolaryngology direct visualization to exclude neoplasm. 2. Other known findings as above. Reported By:
[2018-04-01] MEDS: CHECK PATCH XX SCH (20:54)
[2018-04-01] MEDS: LIPOSYN III 20% 100ML 100 ML IV SCH (22:00)
[2018-04-02] MEDS: MORPHINE SULFATE INJ 2 MG INJ IVP PRN ×7 (00:05→18:29)
[2018-04-02] MEDS: ISOPTO ATROPINE SL SCH ×5 (00:12→07:35)
[2018-04-02] MEDS: CLINIMIX 4.25 %/10 % 1,000 ML with MVI INJ (ADULT) 10 ML, TRACE ELEMENTS INJ 10 ML, DRU... IV SCH ×9 (01:57→13:38)
[2018-04-02] MEDS: XOPENEX 1.25 MG/3 ML NEBULE NEB SCH ×5 (03:25→20:23)
[2018-04-02 06:35] LABS: BASOPHILS % (AUTO) 0.2 % (0.2-1.0); EOSINOPHILS # (AUTO) 0.1 x10^3/uL (0.0-0.2); EOSINOPHILS % (AUTO) 1.1 % (0.9-2.9); HEMATOCRIT 33.8 % (42.0-54.0); HEMOGLOBIN 11.4 g/dL (13.5-18.0); LYMPHOCYTES # (AUTO) 0.3 X10^3/uL (1.3-2.9); LYMPHOCYTES % (AUTO) 3.7 % (21.0-51.0); MEAN CORPUSCULAR HEMOGLOBIN 29.2 pg (27.0-34.0); MEAN CORPUSCULAR HGB CONC 33.6 g/dL (33.0-35.0); MEAN CORPUSCULAR VOLUME 86.7 fL (80.0-100.0); MEAN PLATELET VOLUME 8.8 fL (7.4-11.0); MONOCYTES # (AUTO) 0.7 x10^3/uL (0.3-0.8); MONOCYTES % (AUTO) 10.2 % (0.0-13.0); NEUTROPHILS % (AUTO) 84.8 % (42.0-75.0); PLATELET COUNT 161 X10^3/uL (150.0-450.0); RED CELL DISTRIBUTION WIDTH 16.6 % (11.6-16.5); WHITE BLOOD COUNT 7.1 X10^3/uL (3.6-10.0)
[2018-04-02 06:55] LABS: ALANINE AMINOTRANSFERASE 10 Units/L (12-78); ALBUMIN 2.5 g/dL (3.4-5.0); ALKALINE PHOSPHATASE 105 Units/L (46-116); ASPARTATE AMINO TRANSFERASE 15 Units/L (15-37); BLOOD UREA NITROGEN 20 mg/dL (7-18); CARBON DIOXIDE 32.4 mmol/L (21-32); CHLORIDE 99 mmol/L (98-107); COR CA(FOR HYPOALB) 9.2 mg/dL (8.5-10.1); COR NA(FOR HYPERGLY) 135 mmol/L (136-145); CREATININE 0.62 mg/dL (0.70-1.30); SODIUM 135 mmol/L (136-145); TOTAL PROTEIN 6.5 g/dL (6.4-8.2); eGFR NON BLACK RACES > 60 (>60)
[2018-04-02] MEDS ORDERED: ISOPTO ATROPINE SL PRN (07:49)
[2018-04-02] MEDS: CHECK PATCH XX SCH ×2 (09:02→21:34)
[2018-04-02] MEDS: ALBUMIN HUMAN 25%- 100 ML 100 ML IV SCH (09:02)
[2018-04-02] MEDS: LEVAQUIN PREMIX IV 500 MG 500 MG/100 ML BAG IV SCH (09:03)
[2018-04-02] MEDS: COLACE CAP 100 MG PO SCH ×2 (09:03→21:31)
[2018-04-02] MEDS ORDERED: TORADOL 30 MG VIAL IVP ONE (09:48)
[2018-04-02] MEDS ORDERED: NORFLEX INJ IM ONE (09:48)
[2018-04-02] MEDS ORDERED: PERCOCET TAB 5/325 MG PO PRN (10:05)
[2018-04-02] MEDS ORDERED: ZANAFLEX PO PRN (10:05)
[2018-04-02] MEDS ORDERED: DRONABINOL 5 MG PO PRN (10:05)
[2018-04-02] MEDS ORDERED: RAMIPRIL 1.25 MG PO SCH (10:15)
[2018-04-02] MEDS ORDERED: OSIMERTINIB PO SCH (10:15)
[2018-04-02] MEDS ORDERED: VIT A C AND E LUTEIN MINERALS PO SCH (10:15)
[2018-04-02] MEDS ORDERED: COENZYME Q10 200 MG PO SCH (10:15)
[2018-04-02] MEDS ORDERED: PATIENT'S HOME MEDICATION (Potassium Chloride [Potassium Chloride] 20 MEQ) PO SCH (10:15)
[2018-04-02] MEDS ORDERED: MARINOL PO PRN (10:47)
[2018-04-02] MEDS ORDERED: ALTACE 2.5 MG CAP PO SCH (11:00)
[2018-04-02] MEDS ORDERED: NS 25 ML IV 25 ML IV ONE (11:06)
[2018-04-02] MEDS: K-DUR TAB 20 MEQ PO SCH ×2 (11:10→21:30)
[2018-04-02] MEDS: NORFLEX INJ IVP PRN (11:11)
[2018-04-02] MEDS: ZANTAC PO SCH ×2 (11:11→21:29)
[2018-04-02] MEDS: SOLU-Medrol 40 MG VIAL IVP SCH ×3 (11:29→21:32)
[2018-04-02] MEDS: LASIX IVP SCH ×2 (11:29→21:32)
[2018-04-02] MEDS: ALDACTONE TAB 25 MG PO SCH (11:30)
[2018-04-02] MEDS: LANOXIN PO SCH (11:59)
--- NOTE | 2018-04-02 12:14 | DR.H&P ---
H&P - History & Physical for Day of: H&P Date: 04/01/18 - Chief Complaint Chief Complaint: SOB, COUGH, WEAKNESS, FATIGUE, DIFFICULTY SWALLOWING - History of Present Illness History of Present Illness: IS A 72 YEAR OLD PATIENT OF OURS WHO PRESENTED THE HOSPITAL A DIRECT ADMISSION FOR COMPLAINTS OF SHORTNESS OF BREATH, COUGH, GENERALIZED WEAKNESS, AND FATIGUE. HE REPORTS THAT SYMPTOMS STARTED A FEW DAYS AGO AND HAVE PROGRESSIVELY GOTTEN WORSE. FAMILY STATES THAT HIS OXYGEN SATURATIONS AT HOME WERE NOTED TO BE IN THE 70S ON ROOM AIR. THEY REPORT THAT PATIENT HAS HAD DIFFICULTY SWALLOWING AND INCREASED SECRETIONS AND THAT THEY HAVE BEEN UNABLE TO GET PATIENT TO TAKE HIS MEDICATIONS. PATIENT DOES HAVE A HISTORY OF METASTATIC LUNG CANCER. ON EXAMINATION, BILATERAL LUNG SOUNDS ARE NOTED TO BE DIMINISHED THROUGHOUT. ON ARRIVAL, VITALS WERE 98.1-121-25-92% NC, 109/63. LABS WERE OBTAINED. ABNORMAL LAB VALUES INCLUDE THE FOLLOWING: RBC 4.38, HGB 12.6, HCT 38.2, CARBON DIOXIDE 34.8, CALCIUM 8.2, ALK PHOS 120, ALBUMIN 2.4. A CHEST XRAY WAS OBTAINED AND REVEALED NEW VOLUME LOSS RIGHT LUNG VASCULAR CONGESTION IN RIGHT SMALL PLEURAL EFFUSION AND INCREASING OPACITY IN THE RIGHT MIDDLE AND LOWER LOBE, MOST LIKELY SECONDARY TO MALIGNANCY. HE WAS STARTED ON RESPIRATORY TREATMENTS, SUPPLEMENTAL OXYGEN, AND LEVAQUIN 500MG IV DAILY FOR TREATMENT OF BRONCHOPNEUMONIA. WE WILL OBTAIN A SOFT TISSUE NECK CT TODAY AND REVIEW HOME MEDICATIONS TODAY. OTHERWISE, WE WILL FOLLOW UP WITH AM LABS AND CONTINUE TO MONITOR PATIENT. - Past Medical History Past Medical History: CHF, COPD, Coronary Artery Disease, Depression, Dyslipidemia, Hypertension Additional Medical History: LUNG CANCER - Past Surgical History Surgical History: Appendectomy, Tonsillectomy Additional Surgical History: PACEMAKER, DEFIBRILLATOR, LEFT LEG STENT, - Family History Family Medical History: ID - Social History Does patient currently use any type of tobacco product: Yes Have you used tobacco products in the last 12 months: Yes Type of Tobacco Use: Cigarettes Does any household member use tobacco: No Alcohol Use: None Drug Use: Prescription Drugs - Medications Home Medications: No Known Drug Allergies Allergy (Verified 04/27/17 14:15) CONTINUE taking the following medications osimertinib [Tagrisso] 1 tab PO DAILY 04/01/18 [History] - Review of Systems Constitutional: See HPI, Weakness, Malaise, Other (FATIGUE) Eyes: No Symptoms Reported ENT: Throat Pain, Other (HOARSE, DIFFICULTY SWALLOWING, INCREASED SECRETIONS) Respiratory: See HPI, Cough, Shortness of Breath, SOB with Excertion Cardiovascular: No Symptoms Reported Gastrointestinal: No Symptoms Reported Genitourinary: No Symptoms Reported Musculoskeletal: Back Pain Skin: No Symptoms Reported Neurological: Weakness - Physical Exam Vital Signs: Temperature 97.1 F Pulse Rate [Apical] 114 Pulse Rate 114 Respiratory Rate 19 Blood Pressure [Right Arm] 104/57 Blood Pressure [Left Arm] 110/64 Blood Pressure 110/64 O2 Sat by Pulse Oximetry 93 Oriented: Normal Eyes: Normal Ear: Normal Nose: Normal Throat: Normal Respiratory: Diminished Throughout Cardiovascular: Tachycardia, Murmur. negative: S3, S4 : Normal Auscultation: Bowel Sounds: Normal Palpation: Normal Tenderness: Normal Skin: Decreased Turgur Musculoskeletal: Back:Thoracic, Back:Lumbar Psychiatric: Normal Mood Description: Calm Affect: Normal Speech Pattern: Clear - Assessment/Plan (1) Bronchopneumonia Status: Acute Plan: LEVAQUIN 500MG IV DAILY, SUPPLEMENTAL OXYGEN, RESPIRATORY TREATMENTS, IS, CONTINUE TO MONITOR (2) Respiratory distress, acute Status: Acute Plan: SUPPLEMENTAL OXYGEN, RESPIRATORY TREATMENTS, CONTINUE TO MONITOR (3) Hypoalbuminemia Status: Acute Plan: TPN, ALBUMIN, CONTINUE TO MONITOR (4) Generalized weakness Status: Acute (5) Bone metastases Status: Chronic (6) Non-small cell lung cancer Qualifiers: Laterality: unspecified laterality Qualified Code(s): C34.90 - Malignant neoplasm of unspecified part of unspecified bronchus or lung Status: Chronic (7) CHF (congestive heart failure) Qualifiers: Heart failure type: unspecified Heart failure chronicity: chronic Qualified Code(s): I50.9 - Heart failure, unspecified Status: Acute (8) COPD (chronic obstructive pulmonary disease) Qualifiers: COPD type: unspecified COPD Qualified Code(s): J44.9 - Chronic obstructive pulmonary disease, unspecified Status: Chronic - Allergies Allergies/Adverse Reactions: Allergies Allergy/AdvReac Type Severity Reaction Status Date / Time No Known Drug Allergies Allergy Verified 04/27/17 14:15
[2018-04-02] MEDS: MUCOMYST 20% 200 MG/ML NEB SCH ×3 (12:25→20:23)
[2018-04-02] MEDS: LOVENOX INJ 80 MG SYR SC SCH (17:50)
[2018-04-02] MEDS: PULMICORT NEB TX 0.5 MG NEB SCH (20:23)
[2018-04-02] MEDS ORDERED: PRAVASTATIN 10 MG PO SCH (21:00)
[2018-04-02] MEDS: REMERON PO SCH (21:31)
[2018-04-02] MEDS: PRAVACHOL PO SCH (21:31)
[2018-04-02] MEDS: LIPOSYN III 20% 100ML 100 ML IV SCH (21:33)
[2018-04-02] MEDS: XANAX PO PRN (21:40)
[2018-04-03] MEDS: CLINIMIX 4.25 %/10 % 1,000 ML with MVI INJ (ADULT) 10 ML, TRACE ELEMENTS INJ 10 ML, DRU... IV SCH ×9 (00:38→21:45)
[2018-04-03] MEDS: MORPHINE SULFATE INJ 2 MG INJ IVP PRN ×2 (00:44→14:28)
[2018-04-03 06:03] LABS: BASOPHILS % (AUTO) 0.9 % (0.2-1.0); HEMATOCRIT 36.1 % (42.0-54.0); HEMOGLOBIN 11.7 g/dL (13.5-18.0); LYMPHOCYTES # (AUTO) 0.1 X10^3/uL (1.3-2.9); LYMPHOCYTES % (AUTO) 1.7 % (21.0-51.0); MEAN CORPUSCULAR HEMOGLOBIN 28.7 pg (27.0-34.0); MEAN CORPUSCULAR HGB CONC 32.5 g/dL (33.0-35.0); MEAN CORPUSCULAR VOLUME 88.1 fL (80.0-100.0); MEAN PLATELET VOLUME 8.8 fL (7.4-11.0); MONOCYTES # (AUTO) 0.5 x10^3/uL (0.3-0.8); NEUTROPHILS # (AUTO) 4.7 x10^3/uL (2.2-4.8); NEUTROPHILS % (AUTO) 88.4 % (42.0-75.0); PLATELET COUNT 139 X10^3/uL (150.0-450.0); RED CELL DISTRIBUTION WIDTH 16.6 % (11.6-16.5); WHITE BLOOD COUNT 5.3 X10^3/uL (3.6-10.0)
[2018-04-03] MEDS: SOLU-Medrol 40 MG VIAL IVP SCH ×3 (06:09→21:44)
[2018-04-03 06:19] LABS: ALANINE AMINOTRANSFERASE 14 Units/L (12-78); ALBUMIN 2.7 g/dL (3.4-5.0); ALKALINE PHOSPHATASE 100 Units/L (46-116); ASPARTATE AMINO TRANSFERASE 17 Units/L (15-37); BLOOD UREA NITROGEN 22 mg/dL (7-18); CALCIUM 7.9 mg/dL (8.5-10.1); CARBON DIOXIDE 31.2 mmol/L (21-32); CHLORIDE 97 mmol/L (98-107); COR CA(FOR HYPOALB) 8.9 mg/dL (8.5-10.1); COR NA(FOR HYPERGLY) 135 mmol/L (136-145); CREATININE 0.66 mg/dL (0.70-1.30); SODIUM 134 mmol/L (136-145); TOTAL PROTEIN 6.8 g/dL (6.4-8.2); eGFR NON BLACK RACES > 60 (>60)
[2018-04-03] MEDS: PULMICORT NEB TX 0.5 MG NEB SCH ×2 (09:07→20:23)
[2018-04-03] MEDS: XOPENEX 1.25 MG/3 ML NEBULE NEB SCH ×4 (09:07→20:23)
[2018-04-03] MEDS: MUCOMYST 20% 200 MG/ML NEB SCH ×4 (09:08→20:23)
[2018-04-03] MEDS: MEGACE PO SCH ×2 (09:16→22:23)
[2018-04-03] MEDS: ALDACTONE TAB 25 MG PO SCH (09:17)
[2018-04-03] MEDS: MAGIC MOUTHWASH MT SCH ×4 (09:17→22:23)
[2018-04-03] MEDS: DIFLUCAN 200 MG IV PREMIX* 200 MG/100 ML BAG IV SCH (09:18)
[2018-04-03] MEDS: ZANTAC PO SCH ×2 (09:18→22:22)
[2018-04-03] MEDS: LANOXIN PO SCH (09:18)
[2018-04-03] MEDS: XANAX PO PRN (09:18)
[2018-04-03] MEDS: LEVAQUIN PREMIX IV 500 MG 500 MG/100 ML BAG IV SCH (09:19)
[2018-04-03] MEDS: ALBUMIN HUMAN 25%- 100 ML 100 ML IV SCH (09:19)
[2018-04-03] MEDS: K-DUR TAB 20 MEQ PO SCH ×2 (09:21→22:23)
[2018-04-03] MEDS: LASIX IVP SCH ×2 (09:21→21:44)
[2018-04-03] MEDS: LOVENOX INJ 80 MG SYR SC SCH (09:22)
[2018-04-03] MEDS: CHECK PATCH XX SCH ×2 (09:44→21:46)
[2018-04-03] MEDS ORDERED: NS 25 ML IV 25 ML IV ONE (11:49)
[2018-04-03] MEDS: NORFLEX INJ IVP PRN (13:37)
--- NOTE | 2018-04-03 21:37 | PCM.PROG ---
Progress Note - Progress Note for Day of Date of Exam: 04/02/18 - Subjective Subjective: IS BEING TREATED FOR BRONCHOPNEUMONIA, GENERALIZED WEAKNESS , AND FATIGUE. TODAY, HE IS SITTING IN RECLINER ON MORNING ROUNDS. HE IS NOTED TO BE DIFFICULT TO AROUSE THIS MORNING. FAMILY REPORTS THAT HE RECENTLY HAD A DOSE OF PAIN MEDICATION FOR BACK PAIN. FAMILY REPORTS THAT PATIENT CONTINUES WITH COMPLAINTS OF A SORE THROAT AND IS HOARSE. ON EXAMINATION, HE IS NOTED TO BE SLIGHTLY TACHYCARDIC. BILATERAL LUNG SOUNDS ARE NOTED TO BE DIMINISHED THROUGHOUT. ABDOMEN IS FLAT, SOFT, AND NON-TENDER. NORMAL BOWEL SOUNDS NOTED IN ALL QUADRANTS. VITALS WERE 97.1-114-19-93%NC, 104/57. LABS WERE OBTAINED. ABNORMAL LAB VALUES INCLUDE THE FOLLOWING: RBC 3.90, HGB 11.4, HCT 33.8, SODIUM 135, CARBON DIOXIDE 32.4, BUN 20, CREATININE 0.62, GLUCOSE 114, CALCIUM 8.0, AST 10, ALBUMIN 2.5. A SOFT TISSUE NECK CT WAS OBTAINED AND REVEALED 1 x 1.7 x 2.0 cm prominent soft tissue along the right post lateral wall of the hypopharynx that extends to the level of the true vocal cord with subtle medialization of the aryepiglottic fold. Lesion produces near complete coaptation of the right laryngeal ventricle. No change in right apical calcification and consolidation with unchanged appearance of consolidation in the right perihilar distribution consistent with known history of right-sided lung cancer. HE CONTINUES ON RESPIRATORY TREATMENTS, SUPPLEMENTAL OXYGEN, AND LEVAQUIN 500MG IV DAILY FOR TREATMENT OF BRONCHOPNEUMONIA. WE WILL CONTINUE WITH CURRENT PLAN OF CARE TODAY AND START LASIX 20MG IV BID, SOLUMEDROL 40MG IV Q8H, AND RESUME HOME MEDICATIONS. OTHERWISE, WE WILL FOLLOW UP WITH AM LABS AND CONTINUE TO MONITOR PATIENT. - Past Medical Family Social History Past Med/Fam/Surg Hx: No changes since H&P Allergies: Allergies No Known Drug Allergies Allergy (Verified 04/27/17 14:15) - Review of Systems ROS: No change since H&P - Vital Signs and I&O's Vital Signs: Temperature 97.7 F Pulse Rate [Apical] 87 Pulse Rate 92 Respiratory Rate 17 Blood Pressure [Right Arm] 110/65 Blood Pressure [Left Arm] 110/64 Blood Pressure 110/64 O2 Sat by Pulse Oximetry 97 Intake and Output: Intake & Output 04/01/18 04/02/18 04/03/18 04/04/18 11:59 11:59 11:59 11:59 Intake Total 1215 / 1215 1430 / 1430 180 / 180 Output Total 350 / 350 650 / 650 Balance 1214 / 1214 1080 / 1080 -470 / -470 - Physical Exam Oriented: Normal Eyes: Normal Ear: Normal Nose: Normal Throat: Normal Respiratory: Generalized, Diminished Cardiovascular: Tachycardia, Murmur. negative: S3, S4 : Normal Auscultation: Bowel Sounds: Normal Palpation: Normal Tenderness: Normal Skin: Decreased Turgur Musculoskeletal: Back:Thoracic, Back:Lumbar Psychiatric: Normal Mood Description: Calm Affect: Normal Speech Pattern: Clear - Laboratory and Diagnostics Result Diagrams: 04/03/18 05:46 04/03/18 05:46 Labs: 04/01/18 09:46 Blood Blood Culture - Preliminary 04/01/18 09:41 Blood Blood Culture - Preliminary 04/01/18 11:19 Sputum - Expectorated Sputum Sputum Culture - Final 04/01/18 11:19 Sputum - Expectorated Sputum - Final Laboratory WBC 5.3 X10^3/uL (3.6-10.0) 04/03/18 05:46 RBC 4.10 X10^6/uL (4.7-6.0) L 04/03/18 05:46 Hgb 11.7 g/dL (13.5-18.0) L 04/03/18 05:46 Hct 36.1 % (42.0-54.0) L 04/03/18 05:46 MCV 88.1 fL (80.0-100.0) 04/03/18 05:46 MCH 28.7 pg (27.0-34.0) 04/03/18 05:46 MCHC 32.5 g/dL (33.0-35.0) L 04/03/18 05:46 RDW 16.6 % (11.6-16.5) H 04/03/18 05:46 Plt Count 139 X10^3/uL (150.0-450.0) L 04/03/18 05:46 MPV 8.8 fL (7.4-11.0) 04/03/18 05:46 Neut % (Auto) 88.4 % (42.0-75.0) H 04/03/18 05:46 Lymph % (Auto) 1.7 % (21.0-51.0) L 04/03/18 05:46 Bea[place]gard % (Auto) 9.0 % (0.0-13.0) 04/03/18 05:46 Eos % (Auto) 0.0 % (0.9-2.9) L 04/03/18 05:46 Baso % (Auto) 0.9 % (0.2-1.0) 04/03/18 05:46 Neut # (Auto) 4.7 x10^3/uL (2.2-4.8) 04/03/18 05:46 Lymph # (Auto) 0.1 X10^3/uL (1.3-2.9) L 04/03/18 05:46 Bea[place]gard # (Auto) 0.5 x10^3/uL (0.3-0.8) 04/03/18 05:46 Eos # (Auto) 0.0 x10^3/uL (0.0-0.2) 04/03/18 05:46 Baso # (Auto) 0.0 X10^3/uL (0.0-0.1) 04/03/18 05:46 Absolute Nucleated RBC 0.0 /100WBC 04/03/18 05:46 Sodium 134 mmol/L (136-145) L 04/03/18 05:46 Corrected Sodium 135 mmol/L (136-145) L 04/03/18 05:46 Potassium 3.9 mmol/L (3.5-5.1) 04/03/18 05:46 Chloride 97 mmol/L (98-107) L 04/03/18 05:46 Carbon Dioxide 31.2 mmol/L (21-32) 04/03/18 05:46 BUN 22 mg/dL (7-18) H 04/03/18 05:46 Creatinine 0.66 mg/dL (0.70-1.30) L 04/03/18 05:46 Est GFR (MDRD) Af Amer > 60 (>60) 04/03/18 05:46 Est GFR (MDRD) Non-Af > 60 (>60) 04/03/18 05:46 Glucose 129 mg/dL (65-99) H 04/03/18 05:46 Calcium 7.9 mg/dL (8.5-10.1) L 04/03/18 05:46 Corrected Calcium 8.9 mg/dL (8.5-10.1) 04/03/18 05:46 Total Bilirubin 0.40 mg/dL (0.2-1.0) 04/03/18 05:46 AST 17 Units/L (15-37) 04/03/18 05:46 ALT 14 Units/L (12-78) 04/03/18 05:46 Alkaline Phosphatase 100 Units/L (46-116) 04/03/18 05:46 Total Protein 6.8 g/dL (6.4-8.2) 04/03/18 05:46 Albumin 2.7 g/dL (3.4-5.0) L 04/03/18 05:46 Globulin 4.1 g/dL (2.5-4.5) 04/03/18 05:46 Albumin/Globulin Ratio 0.7 Ratio (1.1-2.1) L 04/03/18 05:46 Prealbumin 14.9 mg/dL (18-35.7) L 04/01/18 08:50 Digoxin 0.52 ng/mL (0.9-2) L 04/02/18 05:40 - Plan (1) Bronchopneumonia Status: Acute Plan: LEVAQUIN 500MG IV DAILY, SUPPLEMENTAL OXYGEN, RESPIRATORY TREATMENTS, IS, CONTINUE TO MONITOR (2) Respiratory distress, acute Status: Acute Plan: SOLU-MEDROL 40MG IV Q8H, SUPPLEMENTAL OXYGEN, RESPIRATORY TREATMENTS, CONTINUE TO MONITOR (3) Hypoalbuminemia Status: Acute Plan: TPN, ALBUMIN, CONTINUE TO MONITOR (4) Generalized weakness Status: Acute (5) Bone metastases Status: Chronic (6) Non-small cell lung cancer Status: Chronic Qualifiers: Laterality: unspecified laterality Qualified Code(s): C34.90 - Malignant neoplasm of unspecified part of unspecified bronchus or lung (7) CHF (congestive heart failure) Status: Acute Qualifiers: Heart failure type: unspecified Heart failure chronicity: chronic Qualified Code(s): I50.9 - Heart failure, unspecified Plan: LASIX 20MG IV BID, CONTINUE TO MONITOR (8) COPD (chronic obstructive pulmonary disease) Status: Chronic Qualifiers: COPD type: unspecified COPD Qualified Code(s): J44.9 - Chronic obstructive pulmonary disease, unspecified
[2018-04-03] MEDS: LIPOSYN III 20% 100ML 100 ML IV SCH (21:45)
[2018-04-03] MEDS: COLACE CAP 100 MG PO SCH (22:21)
[2018-04-03] MEDS: REMERON PO SCH (22:22)
[2018-04-03] MEDS: PRAVACHOL PO SCH (22:22)
[2018-04-04] MEDS: SOLU-Medrol 40 MG VIAL IVP SCH ×3 (05:01→21:50)
[2018-04-04 05:23] LABS: BASOPHILS % (AUTO) 0.1 % (0.2-1.0); HEMATOCRIT 32.3 % (42.0-54.0); HEMOGLOBIN 10.6 g/dL (13.5-18.0); LYMPHOCYTES # (AUTO) 0.1 X10^3/uL (1.3-2.9); LYMPHOCYTES % (AUTO) 1.4 % (21.0-51.0); MEAN CORPUSCULAR HEMOGLOBIN 28.6 pg (27.0-34.0); MEAN CORPUSCULAR HGB CONC 32.7 g/dL (33.0-35.0); MEAN CORPUSCULAR VOLUME 87.6 fL (80.0-100.0); MONOCYTES # (AUTO) 0.8 x10^3/uL (0.3-0.8); NEUTROPHILS # (AUTO) 6.4 x10^3/uL (2.2-4.8); NEUTROPHILS % (AUTO) 87.5 % (42.0-75.0); PLATELET COUNT 147 X10^3/uL (150.0-450.0); RED BLOOD COUNT 3.69 X10^6/uL (4.7-6.0); RED CELL DISTRIBUTION WIDTH 16.8 % (11.6-16.5); WHITE BLOOD COUNT 7.4 X10^3/uL (3.6-10.0)
[2018-04-04 05:34] LABS: ALANINE AMINOTRANSFERASE 14 Units/L (12-78); ALBUMIN 2.6 g/dL (3.4-5.0); ALKALINE PHOSPHATASE 84 Units/L (46-116); ASPARTATE AMINO TRANSFERASE 15 Units/L (15-37); BLOOD UREA NITROGEN 25 mg/dL (7-18); CARBON DIOXIDE 34.8 mmol/L (21-32); CHLORIDE 101 mmol/L (98-107); COR CA(FOR HYPOALB) 9.1 mg/dL (8.5-10.1); COR NA(FOR HYPERGLY) 139 mmol/L (136-145); CREATININE 0.71 mg/dL (0.70-1.30); SODIUM 138 mmol/L (136-145); TOTAL PROTEIN 6.5 g/dL (6.4-8.2); eGFR NON BLACK RACES > 60 (>60)
[2018-04-04] MEDS: ALBUMIN HUMAN 25%- 100 ML 100 ML IV SCH (08:07)
[2018-04-04] MEDS: DIFLUCAN 200 MG IV PREMIX* 200 MG/100 ML BAG IV SCH (08:08)
[2018-04-04] MEDS: LEVAQUIN PREMIX IV 500 MG 500 MG/100 ML BAG IV SCH (08:08)
[2018-04-04] MEDS: LOVENOX INJ 80 MG SYR SC SCH (08:09)
[2018-04-04] MEDS: LASIX IVP SCH ×2 (08:10→21:50)
[2018-04-04] MEDS: LANOXIN PO SCH (08:10)
[2018-04-04] MEDS: K-DUR TAB 20 MEQ PO SCH ×2 (08:11→21:48)
[2018-04-04] MEDS: MEGACE PO SCH ×2 (08:11→21:48)
[2018-04-04] MEDS: ZANTAC PO SCH ×2 (08:11→21:47)
[2018-04-04] MEDS: ALDACTONE TAB 25 MG PO SCH (08:11)
[2018-04-04] MEDS: XANAX PO PRN (08:21)
[2018-04-04] MEDS: CHECK PATCH XX SCH ×2 (08:30→21:51)
[2018-04-04] MEDS: MUCOMYST 20% 200 MG/ML NEB SCH ×4 (08:34→21:51)
[2018-04-04] MEDS: XOPENEX 1.25 MG/3 ML NEBULE NEB SCH ×4 (08:34→21:51)
[2018-04-04] MEDS: PULMICORT NEB TX 0.5 MG NEB SCH ×2 (08:34→21:51)
[2018-04-04] MEDS: MAGIC MOUTHWASH MT SCH ×4 (09:29→21:52)
[2018-04-04] MEDS ORDERED: NS 500 ML IV 500 ML IV ONE (09:39)
--- NOTE | 2018-04-04 12:34 | PCM.PROG ---
Progress Note - Progress Note for Day of Date of Exam: 04/03/18 - Subjective Subjective: IS BEING TREATED FOR BRONCHOPNEUMONIA, GENERALIZED WEAKNESS , AND FATIGUE. TODAY, HE MORE ALERT ON MORNING ROUNDS THAN HE WAS YESTERDAY. 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 THEY ALSO REPORT INCREASED CONFUSION. PATIENT REPORTS THAT HE CONTINUES WITH A SORE THROAT AND DECREASED APPETITE. ON EXAMINATION, HEART IS REGULAR IN RATE AND RHYTHM. BILATERAL LUNG SOUNDS ARE NOTED TO BE DIMINISHED THROUGHOUT. HE IS CURRENTLY UTILIZING OXYGEN VIA NASAL CANNULA AT 2L/MIN. ABDOMEN IS FLAT, SOFT, AND NON-TENDER. NORMAL BOWEL SOUNDS NOTED IN ALL QUADRANTS. VITALS WERE 98.3-100-18-93%-108/69. LABS WERE OBTAINED. ABNORMAL LAB VALUES INCLUDE THE FOLLOWING: RBC 4.10, HGB 11.7, HCT 36.1, SODIUM 134, CHLORIDE 97, BUN 22, CREATININE 0.66, GLUCOSE 129, CALCIUM 7.9, ALBUMIN 2.7. SPUTUM CULTURE REPORTS GROWTH OF YEAST. HE CONTINUES ON RESPIRATORY TREATMENTS, SUPPLEMENTAL OXYGEN, AND LEVAQUIN 500MG IV DAILY FOR TREATMENT OF BRONCHOPNEUMONIA. WE WILL CONTINUE WITH CURRENT PLAN OF CARE TODAY AND START DIFLUCAN 200MG IV DAILY, MAGIC MOUTHWASH, AND MEGACE 40MG PO BID. OTHERWISE, WE WILL FOLLOW UP WITH AM LABS AND CONTINUE TO MONITOR PATIENT. - Past Medical Family Social History Past Med/Fam/Surg Hx: No changes since H&P Allergies: Allergies No Known Drug Allergies Allergy (Verified 04/27/17 14:15) - Review of Systems ROS: No change since H&P - Vital Signs and I&O's Vital Signs: Temperature 97.7 F Pulse Rate [Apical] 101 Pulse Rate 108 Respiratory Rate 19 Blood Pressure [Right Arm] 103/61 Blood Pressure [Left Arm] 99/59 Blood Pressure 110/64 O2 Sat by Pulse Oximetry 93 Intake and Output: Intake & Output 04/02/18 04/03/18 04/04/18 04/05/18 11:59 11:59 11:59 11:59 Intake Total 1215 / 1215 1430 / 1430 1630 / 1630 Output Total 350 / 350 1050 / 1050 Balance 1214 / 1214 1080 / 1080 580 / 580 - Physical Exam Oriented: Normal Eyes: Normal Ear: Normal Nose: Normal Throat: Normal Respiratory: Generalized, Diminished Cardiovascular: Tachycardia, Murmur. negative: S3, S4 : Normal Auscultation: Bowel Sounds: Normal Palpation: Normal Tenderness: Normal Skin: Decreased Turgur Musculoskeletal: Back:Thoracic, Back:Lumbar Psychiatric: Normal Mood Description: Calm Affect: Normal Speech Pattern: Clear - Laboratory and Diagnostics Result Diagrams: 04/04/18 04:15 04/04/18 04:15 Labs: 04/01/18 09:46 Blood Blood Culture - Preliminary 04/01/18 09:41 Blood Blood Culture - Preliminary 04/01/18 11:19 Sputum - Expectorated Sputum Sputum Culture - Final 04/01/18 11:19 Sputum - Expectorated Sputum - Final Laboratory WBC 7.4 X10^3/uL (3.6-10.0) 04/04/18 04:15 RBC 3.69 X10^6/uL (4.7-6.0) L 04/04/18 04:15 Hgb 10.6 g/dL (13.5-18.0) L 04/04/18 04:15 Hct 32.3 % (42.0-54.0) L 04/04/18 04:15 MCV 87.6 fL (80.0-100.0) 04/04/18 04:15 MCH 28.6 pg (27.0-34.0) 04/04/18 04:15 MCHC 32.7 g/dL (33.0-35.0) L 04/04/18 04:15 RDW 16.8 % (11.6-16.5) H 04/04/18 04:15 Plt Count 147 X10^3/uL (150.0-450.0) L 04/04/18 04:15 MPV 9.0 fL (7.4-11.0) 04/04/18 04:15 Neut % (Auto) 87.5 % (42.0-75.0) H 04/04/18 04:15 Lymph % (Auto) 1.4 % (21.0-51.0) L 04/04/18 04:15 Floyd % (Auto) 11.0 % (0.0-13.0) 04/04/18 04:15 Eos % (Auto) 0.0 % (0.9-2.9) L 04/04/18 04:15 Baso % (Auto) 0.1 % (0.2-1.0) L 04/04/18 04:15 Neut # (Auto) 6.4 x10^3/uL (2.2-4.8) H 04/04/18 04:15 Lymph # (Auto) 0.1 X10^3/uL (1.3-2.9) L 04/04/18 04:15 Floyd # (Auto) 0.8 x10^3/uL (0.3-0.8) 04/04/18 04:15 Eos # (Auto) 0.0 x10^3/uL (0.0-0.2) 04/04/18 04:15 Baso # (Auto) 0.0 X10^3/uL (0.0-0.1) 04/04/18 04:15 Absolute Nucleated RBC 0.0 /100WBC 04/04/18 04:15 Sodium 138 mmol/L (136-145) 04/04/18 04:15 Corrected Sodium 139 mmol/L (136-145) 04/04/18 04:15 Potassium 3.9 mmol/L (3.5-5.1) 04/04/18 04:15 Chloride 101 mmol/L (98-107) 04/04/18 04:15 Carbon Dioxide 34.8 mmol/L (21-32) H 04/04/18 04:15 BUN 25 mg/dL (7-18) H 04/04/18 04:15 Creatinine 0.71 mg/dL (0.70-1.30) 04/04/18 04:15 Est GFR (MDRD) Af Amer > 60 (>60) 04/04/18 04:15 Est GFR (MDRD) Non-Af > 60 (>60) 04/04/18 04:15 Glucose 149 mg/dL (65-99) H 04/04/18 04:15 Calcium 8.0 mg/dL (8.5-10.1) L 04/04/18 04:15 Corrected Calcium 9.1 mg/dL (8.5-10.1) 04/04/18 04:15 Total Bilirubin 0.20 mg/dL (0.2-1.0) 04/04/18 04:15 AST 15 Units/L (15-37) 04/04/18 04:15 ALT 14 Units/L (12-78) 04/04/18 04:15 Alkaline Phosphatase 84 Units/L (46-116) 04/04/18 04:15 Total Protein 6.5 g/dL (6.4-8.2) 04/04/18 04:15 Albumin 2.6 g/dL (3.4-5.0) L 04/04/18 04:15 Globulin 3.9 g/dL (2.5-4.5) 04/04/18 04:15 Albumin/Globulin Ratio 0.7 Ratio (1.1-2.1) L 04/04/18 04:15 Prealbumin 14.9 mg/dL (18-35.7) L 04/01/18 08:50 Digoxin 0.52 ng/mL (0.9-2) L 04/02/18 05:40 - Plan (1) Bronchopneumonia Status: Acute Plan: LEVAQUIN 500MG IV DAILY, SUPPLEMENTAL OXYGEN, RESPIRATORY TREATMENTS, IS, CONTINUE TO MONITOR (2) Respiratory distress, acute Status: Acute Plan: SOLU-MEDROL 40MG IV Q8H, SUPPLEMENTAL OXYGEN, RESPIRATORY TREATMENTS, CONTINUE TO MONITOR (3) Hypoalbuminemia Status: Acute Plan: TPN, ALBUMIN, CONTINUE TO MONITOR (4) Yeast cells and fungal elements present on diagnostic testing Status: Acute Plan: DIFLUCAN 200MG IV, MAGIC MOUTHWASH, CONTINUE TO MONITOR (5) Generalized weakness Status: Acute (6) Bone metastases Status: Chronic (7) Non-small cell lung cancer Status: Chronic Qualifiers: Laterality: unspecified laterality Qualified Code(s): C34.90 - Malignant neoplasm of unspecified part of unspecified bronchus or lung (8) CHF (congestive heart failure) Status: Acute Qualifiers: Heart failure type: unspecified Heart failure chronicity: chronic Qualified Code(s): I50.9 - Heart failure, unspecified Plan: LASIX 20MG IV BID, CONTINUE TO MONITOR (9) COPD (chronic obstructive pulmonary disease) Status: Chronic Qualifiers: COPD type: unspecified COPD Qualified Code(s): J44.9 - Chronic obstructive pulmonary disease, unspecified
[2018-04-04] MEDS: TRANSDERM-SCOP TD SCH (13:56)
[2018-04-04] MEDS: LIPOSYN III 20% 100ML 100 ML IV SCH (21:45)
[2018-04-04] MEDS: PRAVACHOL PO SCH (21:47)
[2018-04-04] MEDS: REMERON PO SCH (21:47)
[2018-04-04] MEDS: COLACE CAP 100 MG PO SCH (21:48)
[2018-04-04] MEDS: CLINIMIX 4.25 %/10 % 1,000 ML with MVI INJ (ADULT) 10 ML, TRACE ELEMENTS INJ 10 ML, DRU... IV SCH ×3 (21:51)
[2018-04-05 05:38] LABS: BASOPHILS % (AUTO) 0 % (0.2-1.0); HEMATOCRIT 34.7 % (42.0-54.0); HEMOGLOBIN 11.4 g/dL (13.5-18.0); LYMPHOCYTES # (AUTO) 0.2 X10^3/uL (1.3-2.9); LYMPHOCYTES % (AUTO) 1.4 % (21.0-51.0); MEAN CORPUSCULAR HEMOGLOBIN 28.6 pg (27.0-34.0); MEAN CORPUSCULAR HGB CONC 32.8 g/dL (33.0-35.0); MEAN CORPUSCULAR VOLUME 87.1 fL (80.0-100.0); NEUTROPHILS # (AUTO) 9.6 x10^3/uL (2.2-4.8); NEUTROPHILS % (AUTO) 89.6 % (42.0-75.0); PLATELET COUNT 186 X10^3/uL (150.0-450.0); RED BLOOD COUNT 3.98 X10^6/uL (4.7-6.0); RED CELL DISTRIBUTION WIDTH 16.4 % (11.6-16.5); WHITE BLOOD COUNT 10.7 X10^3/uL (3.6-10.0)
[2018-04-05 05:45] LABS: ALANINE AMINOTRANSFERASE 18 Units/L (12-78); ALBUMIN 2.8 g/dL (3.4-5.0); ALKALINE PHOSPHATASE 95 Units/L (46-116); ASPARTATE AMINO TRANSFERASE 15 Units/L (15-37); BLOOD UREA NITROGEN 29 mg/dL (7-18); CALCIUM 8.4 mg/dL (8.5-10.1); CHLORIDE 100 mmol/L (98-107); COR CA(FOR HYPOALB) 9.4 mg/dL (8.5-10.1); COR NA(FOR HYPERGLY) 139 mmol/L (136-145); CREATININE 0.68 mg/dL (0.70-1.30); SODIUM 138 mmol/L (136-145); TOTAL PROTEIN 6.8 g/dL (6.4-8.2); eGFR NON BLACK RACES > 60 (>60)
[2018-04-05] MEDS: SOLU-Medrol 40 MG VIAL IVP SCH (05:51)
[2018-04-05] MEDS: XOPENEX 1.25 MG/3 ML NEBULE NEB SCH (06:47)
[2018-04-05 07:37] VITALS: BP 114/58
--- NOTE | 2018-04-05 08:39 | PCM.PROG ---
Progress Note - Progress Note for Day of Date of Exam: 04/04/18 - Subjective Subjective: IS BEING TREATED FOR BRONCHOPNEUMONIA, GENERALIZED WEAKNESS , AND FATIGUE. TODAY, HE IS ALERT AND ORIENTED, SITTING UP IN CHAIR ON MORNING ROUNDS. FAMILY CONTINUES TO REPORT THAT PATIENT HAS HAD INCREASED SHORTNESS OF BREATH, BUT THAT IT HAS SLIGHTLY IMPROVED THIS MORNIGNG. OXYGEN SATURATIONS WERE NOTED TO BE IN THE 80S YESTERDAY ON NASAL CANNULA. ON EXAMINATION, HEART IS REGULAR IN RATE AND RHYTHM. BILATERAL LUNG SOUNDS ARE NOTED TO BE DIMINISHED THROUGHOUT. HE IS CURRENTLY UTILIZING OXYGEN VIA NASAL CANNULA AT 3L/MIN. ABDOMEN IS FLAT, SOFT, AND NON-TENDER. NORMAL BOWEL SOUNDS NOTED IN ALL QUADRANTS. VITALS THIS MORNING WERE 97.5-73-15-92%-103/61. LABS WERE OBTAINED. ABNORMAL LAB VALUES INCLUDE THE FOLLOWING: RBC 3.69, HGB 10.6, HCT 32.3, CARBON DIOXIDE 34.8, BUN 25, GLUCOSE 149, CALCIUM 8.0, ALBUMIN 2.6. HE CONTINUES ON RESPIRATORY TREATMENTS, SUPPLEMENTAL OXYGEN, AND LEVAQUIN 500MG IV DAILY FOR TREATMENT OF BRONCHOPNEUMONIA. WE WILL CONTINUE WITH CURRENT PLAN OF CARE TODAY. OTHERWISE, WE WILL FOLLOW UP WITH AM LABS AND CONTINUE TO MONITOR PATIENT. - Past Medical Family Social History Past Med/Fam/Surg Hx: No changes since H&P Allergies: Allergies No Known Drug Allergies Allergy (Verified 04/27/17 14:15) - Review of Systems ROS: No change since H&P - Vital Signs and I&O's Vital Signs: Temperature 97.6 F Pulse Rate [Apical] 86 Pulse Rate 92 Respiratory Rate 10 Blood Pressure [Right Arm] 114/58 Blood Pressure [Left Arm] 93/55 Blood Pressure 110/64 O2 Sat by Pulse Oximetry 77 Intake and Output: Intake & Output 04/02/18 04/03/18 04/04/18 04/05/18 11:59 11:59 11:59 11:59 Intake Total 1215 / 1215 1430 / 1430 1630 / 1630 950 / 950 Output Total 350 / 350 1050 / 1050 600 / 600 Balance 1214 / 1214 1080 / 1080 580 / 580 350 / 350 - Physical Exam Oriented: Normal Eyes: Normal Ear: Normal Nose: Normal Throat: Normal Respiratory: Generalized, Diminished Cardiovascular: Tachycardia, Murmur. negative: S3, S4 : Normal Auscultation: Bowel Sounds: Normal Palpation: Normal Tenderness: Normal Skin: Decreased Turgur Musculoskeletal: Back:Thoracic, Back:Lumbar Psychiatric: Normal Mood Description: Calm Affect: Normal Speech Pattern: Aphasic - Laboratory and Diagnostics Result Diagrams: 04/05/18 04:10 04/05/18 04:10 Labs: 04/01/18 09:46 Blood Blood Culture - Preliminary 04/01/18 09:41 Blood Blood Culture - Preliminary 04/01/18 11:19 Sputum - Expectorated Sputum Sputum Culture - Final 04/01/18 11:19 Sputum - Expectorated Sputum - Final Laboratory WBC 10.7 X10^3/uL (3.6-10.0) H 04/05/18 04:10 RBC 3.98 X10^6/uL (4.7-6.0) L 04/05/18 04:10 Hgb 11.4 g/dL (13.5-18.0) L 04/05/18 04:10 Hct 34.7 % (42.0-54.0) L 04/05/18 04:10 MCV 87.1 fL (80.0-100.0) 04/05/18 04:10 MCH 28.6 pg (27.0-34.0) 04/05/18 04:10 MCHC 32.8 g/dL (33.0-35.0) L 04/05/18 04:10 RDW 16.4 % (11.6-16.5) 04/05/18 04:10 Plt Count 186 X10^3/uL (150.0-450.0) 04/05/18 04:10 MPV 9.0 fL (7.4-11.0) 04/05/18 04:10 Neut % (Auto) 89.6 % (42.0-75.0) H 04/05/18 04:10 Lymph % (Auto) 1.4 % (21.0-51.0) L 04/05/18 04:10 [place] % (Auto) 9.0 % (0.0-13.0) 04/05/18 04:10 Eos % (Auto) 0.0 % (0.9-2.9) L 04/05/18 04:10 Baso % (Auto) 0 % (0.2-1.0) L 04/05/18 04:10 Neut # (Auto) 9.6 x10^3/uL (2.2-4.8) H 04/05/18 04:10 Lymph # (Auto) 0.2 X10^3/uL (1.3-2.9) L 04/05/18 04:10 [place] # (Auto) 1.0 x10^3/uL (0.3-0.8) H 04/05/18 04:10 Eos # (Auto) 0.0 x10^3/uL (0.0-0.2) 04/05/18 04:10 Baso # (Auto) 0.0 X10^3/uL (0.0-0.1) 04/05/18 04:10 Absolute Nucleated RBC 0.0 /100WBC 04/05/18 04:10 Sodium 138 mmol/L (136-145) 04/05/18 04:10 Corrected Sodium 139 mmol/L (136-145) 04/05/18 04:10 Potassium 3.7 mmol/L (3.5-5.1) 04/05/18 04:10 Chloride 100 mmol/L (98-107) 04/05/18 04:10 Carbon Dioxide 35.0 mmol/L (21-32) H 04/05/18 04:10 BUN 29 mg/dL (7-18) H 04/05/18 04:10 Creatinine 0.68 mg/dL (0.70-1.30) L 04/05/18 04:10 Est GFR (MDRD) Af Amer > 60 (>60) 04/05/18 04:10 Est GFR (MDRD) Non-Af > 60 (>60) 04/05/18 04:10 Glucose 148 mg/dL (65-99) H 04/05/18 04:10 Calcium 8.4 mg/dL (8.5-10.1) L 04/05/18 04:10 Corrected Calcium 9.4 mg/dL (8.5-10.1) 04/05/18 04:10 Total Bilirubin 0.20 mg/dL (0.2-1.0) 04/05/18 04:10 AST 15 Units/L (15-37) 04/05/18 04:10 ALT 18 Units/L (12-78) 04/05/18 04:10 Alkaline Phosphatase 95 Units/L (46-116) 04/05/18 04:10 Total Protein 6.8 g/dL (6.4-8.2) 04/05/18 04:10 Albumin 2.8 g/dL (3.4-5.0) L 04/05/18 04:10 Globulin 4.0 g/dL (2.5-4.5) 04/05/18 04:10 Albumin/Globulin Ratio 0.7 Ratio (1.1-2.1) L 04/05/18 04:10 Prealbumin 14.9 mg/dL (18-35.7) L 04/01/18 08:50 Digoxin 0.52 ng/mL (0.9-2) L 04/02/18 05:40 - Plan (1) Bronchopneumonia Status: Acute Plan: LEVAQUIN 500MG IV DAILY, SUPPLEMENTAL OXYGEN, RESPIRATORY TREATMENTS, IS, CONTINUE TO MONITOR (2) Respiratory distress, acute Status: Acute Plan: SOLU-MEDROL 40MG IV Q8H, SUPPLEMENTAL OXYGEN, RESPIRATORY TREATMENTS, CONTINUE TO MONITOR (3) Hypoalbuminemia Status: Acute Plan: TPN, ALBUMIN, CONTINUE TO MONITOR (4) Yeast cells and fungal elements present on diagnostic testing Status: Acute Plan: DIFLUCAN 200MG IV, MAGIC MOUTHWASH, CONTINUE TO MONITOR (5) Generalized weakness Status: Acute (6) Bone metastases Status: Chronic (7) Non-small cell lung cancer Status: Chronic Qualifiers: Laterality: unspecified laterality Qualified Code(s): C34.90 - Malignant neoplasm of unspecified part of unspecified bronchus or lung (8) CHF (congestive heart failure) Status: Acute Qualifiers: Heart failure type: unspecified Heart failure chronicity: chronic Qualified Code(s): I50.9 - Heart failure, unspecified Plan: LASIX 20MG IV BID, CONTINUE TO MONITOR (9) COPD (chronic obstructive pulmonary disease) Status: Chronic Qualifiers: COPD type: unspecified COPD Qualified Code(s): J44.9 - Chronic obstructive pulmonary disease, unspecified
[2018-04-05] MEDS: ALBUMIN HUMAN 25%- 100 ML 100 ML IV SCH (08:52)
[2018-04-05] MEDS: ZANTAC PO SCH (08:52)
[2018-04-05] MEDS: MAGIC MOUTHWASH MT SCH (08:53)
[2018-04-05] MEDS: MEGACE PO SCH (08:53)
[2018-04-05] MEDS: LOVENOX INJ 80 MG SYR SC SCH (08:53)
[2018-04-05] MEDS ORDERED: VERSED 100 MG in NS 100 ML IV 80 ML IV PRN ×2 (08:54→09:03)
[2018-04-05] MEDS: LASIX IVP SCH (08:55)
[2018-04-05] MEDS: LEVAQUIN PREMIX IV 500 MG 500 MG/100 ML BAG IV SCH (08:55)
[2018-04-05] MEDS: K-DUR TAB 20 MEQ PO SCH (08:56)
[2018-04-05] MEDS: DIFLUCAN 200 MG IV PREMIX* 200 MG/100 ML BAG IV SCH (08:56)
[2018-04-05] MEDS: LANOXIN PO SCH (08:56)
[2018-04-05] MEDS: CHECK PATCH XX SCH (08:57)
[2018-04-05] MEDS: ALDACTONE TAB 25 MG PO SCH (08:57)
[2018-04-05] MEDS ORDERED: MORPHINE SULFATE PCA 30 MG IVP SCH (10:00)
--- NOTE | 2018-04-26 17:03 | DR.DECEASE ---
Form - Labs Result Diagrams: 04/05/18 04:10 04/05/18 04:10 - Hospital Course Hospital Course: Mr. Su presented to the hospital as a direct admission with reports of shortness of breath, cough, generalized weakness, and fatigue. Patient reported that symptoms started a few days prior and had progressively worsened. Family stated that his oxygen saturations at home were noted to be in the 70s on room air. They reported that patient had difficulty swallowing and increased secretions and that they had been unable to get patient to take his medications. Patient had a current diagnosis of metastatic lung cancer. On arrival to the hospital patient noted with an oxygen saturation of 92% on 2L/ min via nasal cannula and noted with a drop as low as 88% on oxygen. Patient noted with shortness of breath at rest and on exertion. On auscultation of lung moise patient noted with rhonchi throughout with diminished breath sounds. Patient noted with a productive cough with a moderate amount of thick green sputum production. On auscultation of abdominal quadrants patient noted with hypoactive bowel sounds throughout. Chest x-ray obtained on arrival revealed new volume loss right lung with right vascular congestion in right small pleural effusion and increasing opacity in the right middle and lower lobe , most likely secondary to malignancy. Patient reported difficulty swallowing recently and a soft tissue neck CT was obtained for further evaluation which revealed a 1x1.7x2cm prominent soft tissue along the right post lateral wall of the hypopharynx that extended to the level of the true vocal cord with subtle medialization of the aryepiglottic fold. Findings suggestive of metastasis. Patient started on IV fluids and IV pain medications. Patient continued with shortness of breath. Patient remained on supplemental oxygen at 2L/min via nasal cannula. Patient reports generalized pain especially to right chest rib area. On auscultation of lung moise patient noted with rhonchi throughout with diminished breath sounds throughout. Cough remained productive with thick green/yellow sputum noted. We continued with treatment and monitored. On , Patient was noted to have started gurgling around 5am this morning. Patient noted unresponsive shortly following start of gurgling. Patient noted with a decrease in oxygen saturation of 88% on 3L/min via nasal cannula. Patient placed on non-rebreather and saturation continued to decrease to the 70' s. We discussed patient's status with family. Family requested comfort measures only. A DNR was obtained. Patient started on comfort measures and Versed drip started at 5mg/hr and Morphine BALANCE WHEEL SCREW HOLE TAPPER started continuously at 5mg per hour. We continued to monitor patient for comfort. Patient passed peacefully with family at bedside at 1400 on 04/05/18. 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 Cancer, metastatic (Acute) C79.9 Non-small cell lung cancer (Chronic) C34.90 Bronchitis (Acute) J40 Respiratory distress, acute (Acute) R06.00 Dehydration (Acute) E86.0 Cancer of back (Acute) C76.8 CHF (congestive heart failure) (Acute) I50.9 COPD (chronic obstructive pulmonary disease) (Chronic) J44.9 Back pain, thoracic (Acute) M54.6 Hypoalbuminemia (Acute) E88.09 Malnourished (Acute) E46 Dyspnea, unspecified (Acute) R06.00 Generalized weakness (Acute) R53.1 Hypoalbuminemia (Acute) E88.09 Yeast cells and fungal elements present on diagnostic testing (Acute) [id number] Lung cancer (Acute) C34.90 Decreased appetite (Acute) R63.0 - Home Medications Home Medications: Home Medications Medication Instructions Recorded Type osimertinib [Tagrisso] 1 tab PO DAILY 04/01/18 History enoxaparin [Lovenox] 70 mg SUB-Q DAILY 04/02/18 History
== END 2018-04-05 14:03 | disposition expired | DRG 194 ==
LOC: ICU 07:59 → MED/SURG 12:14
PROVIDERS: ADMIT Internal Medicine; ATTEND Internal Medicine
DX: I46.9 Cardiac arrest, cause unspecified; R13.11 Dysphagia, oral phase; J18.0 Bronchopneumonia, unspecified organism; J44.9 Chronic obstructive pulmonary disease, unspecified; E78.2 Mixed hyperlipidemia; I50.9 Heart failure, unspecified; F32.89 Other specified depressive episodes; I11.0 Hypertensive heart disease with heart failure; J02.9 Acute pharyngitis, unspecified; R06.02 Shortness of breath; B37.9 Candidiasis, unspecified; Z66 Do not resuscitate; R26.89 Other abnormalities of gait and mobility; C34.90 Malignant neoplasm of unspecified part of unspecified bronchus or lung; R53.83 Other fatigue; C79.51 Secondary malignant neoplasm of bone; R06.03 Acute respiratory distress; I25.10 Atherosclerotic heart disease of native coronary artery without angina pectoris; Z95.0 Presence of cardiac pacemaker
CPT/HCPCS: 36415; 36600; 70490; 71010; 71045; 80053; 80162; 84134; 85025; 87040; 87070; 87205; 92526; 92610; 94640; 94760; 97163; 97167; A4222; B4189; P9047; S0179; J1450; J1650; J1885; J1940; J1956; J2060; J2250; J2270; J2271; J2360; J2920; J7040; J7050; J7608; J7626